=== PATIENT | male | born 1980 | race Caucasian/White ===

== ENCOUNTER 2023-04-17 10:22 | Inpatient (IN) | payer MEDICARE, MEDICAID, SELFPAY ==
[2023-04-17] VITALS (16 sets, daily range): BP systolic 114–131; BP diastolic 75–95; PULSE 74–103; RESP 16–20; TEMP 36.7–37.4; O2SAT 84–97; BMI 31.8
--- NOTE | 2023-04-17 11:30 | CRLHL7_ITS ---
For Patients: As a result of the Century Cures Act, medical imaging exams and procedure reports are released immediately into your electronic medical record. You may view this report before your referring provider. If you have questions, please contact your health care provider. Indication: Cough, fever and hypoxia. Technique: Chest 2 views Comparison: Chest x-ray 09/21/2022 Findings/Impression: Cardiovascular and mediastinum: Heart size and vasculature are normal in caliber and appearance. Mediastinum is within normal limits. Lungs and pleural spaces: No pleural effusion or pneumothorax. Hazy opacities at the lingula and right mid lung consistent with pneumonia. Bones and soft tissues: Straightening of the thoracic spine. Dictated by Baldemar Matos MD @ 04/17/2023 12:53:23 PM (Electronically Signed)
--- NOTE | 2023-04-17 11:51 | ED_ITS ---
HPI - General Adult General Date Seen: 04/17/23 Chief complaint: Cough Stated complaint: fever,shortness of breath,cough Time Seen by Provider: 04/17/23 10:54 History of Present Illness HPI narrative: 42-year-old male with history of Down syndrome, largely dependent on his parents for care and lives with them. He has a history of pneumonia in the past an aspiration pneumonia. Father indicates he has no other history of lung disease, asthma, or COPD. No history of any heart disease, valvular disease, CHF, or coronary disease. He is not diabetic. He does have silly at disease. For a long time he had a very restrictive diet but recently he has discovered that he can eat and enjoys gluten free pizza and chicken nuggets. He has been eating a lot of those so has gained of bunch of weight over the past several months. He has been ill recently. It is a little bit unclear how long he has been sick, concerned father is not exactly clear on the time line. It sounds like patient's mother was sick with a viral illness that lasted a couple of weeks, be ginning in mid March and ending a week or 2 ago. The patient has probably been sick since last week. It sounds like he was out to check folate to eat with his [employer] and had an episode where he was choking or possibly vomiting at [employer] a last week. He has had a couple more episodes including 1 yesterday where he was eating and show then vomited. He has also had a low-grade fever for at least a few days. He has been coughing. He has been a little bit less active than normal. Yesterday evening he was complaining to his parents that his chest or his arm were hurting. It is difficult for them to know exactly what his symptoms are because he can not communicate clearly (because of his Down's and baseline function). He does have sleep apnea. They do have a home pulse oximeter. Last night his oxygen dropped as low as 70% while on room air. He does not have any home oxygen or CPAP. His father is concerned about his low oxygen levels. Today oxygen level is mostly in the 90s with occasional dips to the 80s. Father thinks he has had a low-grade fever. No diarrhea. No swelling in his legs. Now the patient is here in the ER he says he feels ?just fine? and has no complaints. Specifically he does not feel short of breath and does not have chest pain. Says he is not nauseous. He is not having any abdominal pain. Related Data Home Medications Medication Instructions Recorded Confirmed divalproex 500 mg tablet,extended 500 mg PO 3XD 09/21/22 09/21/22 release 24 hr Probiotic 04/17/23 fluvoxamine 100 mg tablet 100 mg PO BID 04/17/23 04/17/23 ibuprofen 04/17/23 quetiapine 50 mg tablet mg PO 04/17/23 vit D3-folic [id number] 04/17/23 Allergies Allergy/AdvReac Type Severity Reaction Status Date / Time No Known Drug Allergies Allergy Verified 09/21/22 13:12 [facility] Medical History (Updated 04/17/23 @ 13:22 by Juan R Calix MD) Cough ?R05.9 - Cough, unspecified (ICD-10) Social History Smoking Status: Never smoker Exam Narrative: Exam Narrative: Constitutional: Appears well-developed. Body habitus consistent with down syndrome. well-nourished. Alert. Answers simple questions and follows simple commands. Difficult to understand some of his speech which is his baseline. Not a reliable historian. Breathing easily. Sats in the low 90s mostly on room air but does have occasional transient desaturations into the high 80s. HENT: Head: Atraumatic. Nose: Nose normal. Mouth/Throat: Wearing a face mask because of COVID precautions. Oral mucosa is clear and moist. no trismus. Pharynx normal. Tonsils symmetric. No tonsillar enlargement, erythema, or exudate. Eyes: Conjunctivae normal. EOM normal. Pupils equal, round, and reactive to light. No scleral icterus. Neck: Normal range of motion. Neck supple. No tracheal deviation present. No JVD Cardiovascular: Normal rate, regular rhythm. No gallop. No friction rub. No murmur heard. Symmetric radial artery pulses Pulmonary/Chest: Effort normal. No stridor. No respiratory distress. No wheezes. Bilateral mid and lower rales. No rhonchi . No tenderness. Abdominal: Soft. Bowel sounds normal. No distension. No mass. No tenderness. No rebound. No guarding. Musculoskeletal: RUE: Normal range of motion. No tenderness. No deformity LUE: Normal range of motion. No tenderness. No deformity RLE: Normal range of motion. Trace ankle edema. No tenderness. No deformity LLE: Normal range of motion. Trace ankle edema. No tenderness. No deformity Lymph: No cervical adenopathy. Neurological: Alert and oriented to person, place and follows commands at baseline. Difficult to assess full mental status because his speech is hard to understand.. Normal strength. CN II-VII intact. No sensory deficit. GCS eye subscore is 4. GCS verbal subscore is 5. GCS motor subscore is 6. Normal coordination Skin: Skin is warm and dry. No rash noted. No pallor. Normal capillary refill. Psychiatric: Normal mood. Normal affect. He is polite and cooperative. Const: Vital Signs, click to edit/add: Vital Signs - 24 hr 04/17/23 10:34 04/17/23 11:52 04/17/23 12:15 Temperature 98.1 F Pulse Rate 90 74 Pulse Rate [Pulse Oximeter] 102 H Respiratory Rate 20 Blood Pressure [Ri ght Upper Arm] 114/75 Pulse Oximetry 93 93 94 Oxygen Delivery Me thod Room Air Oxygen Flow Rate 04/17/23 12:30 04/17/23 13:05 Temperature Pulse Rate 87 Pulse Rate [Pulse Oximeter] Respiratory Rate Blood Pressure [Ri ght Upper Arm] Pulse Oximetry 95 97 Oxygen Delivery Me thod Nasal Cannula Oxygen Flow Rate 2 Course Vital Signs Vital signs: Initial Vital Signs Temperature 98.1 F 04/17/23 10:34 Temperature Source Temporal Artery Scan 04/17/23 10:34 Pulse Rate 102 H 04/17/23 10:34 Respiratory Rate 20 04/17/23 10:34 Blood Pressure 114/75 04/17/23 10:34 Blood Pressure Mean 88 04/17/23 10:34 Pulse Oximetry 93 04/17/23 10:34 Oxygen Delivery Method Room Air 04/17/23 10:34 Vital Signs Temperature 98.1 F 04/17/23 10:34 Pulse Rate 102 H 04/17/23 10:34 Respiratory Rate 20 04/17/23 10:34 Blood Pressure 114/75 04/17/23 10:34 Pulse Oximetry 93 04/17/23 10:34 Oxygen Delivery Method Room Air 04/17/23 10:34 Temperature 98.1 F 04/17/23 10:34 Pulse Rate 87 04/17/23 12:30 Respiratory Rate 20 04/17/23 10:34 Blood Pressure 114/75 04/17/23 10:34 Pulse Oximetry 97 04/17/23 13:05 Oxygen Delivery Method Nasal Cannula 04/17/23 13:05 Oxygen Flow Rate 2 04/17/23 13:05 Medical Decision Making MDM Narrative Medical decision making narrative: 42-year-old male with a history of down syndrome and history of previous hospitalizations for aspiration pneumonia brought to the ER today by his father with concern for illness for the past few days, some cough, low-grade fevers, and hypoxia overnight. When the patient presented he ER he was not having any respiratory distress but was intermittently hypoxic, typically when he would get a bit drowsy. He was tachycardic at triage but that improved with IV fluids and blood pressure is otherwise been stable. At this point he is not showing signs of respiratory fatigue that is going to reach indicate the necessity of BiPAP or endotracheal intubation. He has does not have any evidence for septic shock. With his cough consider possible viral syndrome. He is negative for coronavirus. Negative for influenza and RSV. Chest x-ray does show right lower lobe and left lingular infiltrates which could be pneumonia. With history of aspiration or possible community-acquired pneumonia we will initiate antibiotic therapy. He was tachycardic and had a low-grade fever but does not have leukocytosis. Does not meet criteria for SIRS or sepsis. However blood cultures were obtained prior to initiation of antibiotics. Broader differential for hypoxia is considered. EKG shows no ischemia. Troponin is negative. BNP is normal. Chest x-ray does not show pulmonary edema. He does not have any recent unilateral swelling, immobilization, or travel to suggest DVT or risk for PE. With obvious pneumonia noted on his chest x-ray, I think is exceedingly low probability for PE he so will hold off on D- dimer testing or CT PA. He did become hypoxic satting down the low 80s on room air when he took a nap here in the ER. Oxygen sats have improved with 2 L nasal cannula supplementation. He will require hospitalization for oxygen supplementation while we treat his pneumonia with antibiotics. He has accepted into the hospital by the hospitalist, Dr. Rivera. Discussed plan of care with the patient's father. He is in agreement. He confirms that Samuel would be full code and full intubation, desiring all supportive measures, if his condition were to deteriorate. Lab Data Labs: Lab Results 04/17/23 04/17/23 Range/Units 11:44 Unknown WBC 9.53 (4.50-11.00) K/uL RBC 3.73 L (4.30-5.90) m/uL Hgb 12.7 L (13.5-17.5) gm/dL Hct 38.9 (37.0-53.0) % MCV 104 H (80-100) fL MCH 34 (26-34) pg MCHC 33 (32-36) gm/dL RDW Coeff of [place] 15.0 (11.5-15.5) % Plt Count 227 (140-440) K/uL Neut % (Auto) 75.3 H (42.0-72.0) % Lymph % (Auto) 17.5 L (20-44) % [place] % (Auto) 6.1 (0.0-11.0) % Eos % (Auto) 0.4 (0.0-7.0) % Baso % (Auto) 0.4 (0.0-3.0) % Neut # (Auto) 7.20 H (1.7-7.0) K/uL Lymph # (Auto) 1.70 (0.90-2.90) K/uL [place] # (Auto) 0.60 (0.00-0.90) K/UL Eos # (Auto) 0.04 (0.00-0.50) K/uL Baso # (Auto) 0.04 (0.00-0.30) K/uL Abs Immat Gran (auto) 0.03 (0.00-0.30) K/uL Imm/Tot Granulo (auto) 0.3 % Sodium 138 (135-149) mmol/L Potassium 3.9 (3.6-5.1) mmol/L Chloride 107 (96-114) mmol/L Carbon Dioxide 23 (20-32) mmol/L Anion Gap 8 (7-15) mEq/L BUN 14 (5-24) mg/dL Creatinine 0.6 (0.5-1.5) mg/dL Estimated GFR 123 ml/min Glucose 89 (60-115) mg/dL Lactate 0.5 (0.5-1.9) mmol/L Calcium 8.4 (8.4-10.6) mg/dL Troponin I < 0.01 L (0.01-0.04) ng/mL NT-Pro-B Natriuret Pep 82 pg/mL SARS-CoV-2 (PCR) Negative SARS-CoV-2 (Negative) Influenza Type A (PCR) Negative PCR FLU A (Negative) Influenza Type B (PCR) Negative PCR FLU B (Negative) RSV (PCR) Negative PCR RSV (Negative) Imaging Data Chest x-ray: Attestation: I have reviewed the pertinent imaging results. Radiologist's impression: Findings/Impression: Cardiovascular and mediastinum: Heart size and vasculature are normal in caliber and appearance. Mediastinum is within normal limits. Lungs and pleural spaces: No pleural effusion or pneumothorax. Hazy opacities at the lingula and right mid lung consistent with pneumonia. ECG Data Attestation: I personally reviewed and interpreted this ECG as follows: Interpretation: Normal sinus rhythm rate 94 MO 138 QRS axis low-voltage QRS. Normal axis. No pathologic Q-waves. ST segment/T wave: Nonspecific flattening in V1 and V2. No ST segment elevation depression. QTc: 440 Discharge Plan Discharge Clinical Impression: Hypoxia, Pneumonia Prescriptions: No Action divalproex 500 mg tablet extended release 24 hr 500 mg PO 3XD fluvoxamine 100 mg tablet 100 mg PO BID Probiotic ibuprofen vit D3-folic [id number] quetiapine 50 mg tablet PO Follow Up/Referrals: Carrie Pena MD [Primary Care Provider] -
[2023-04-17 11:53] LABS: PCR FLU A Negative PCR FLU A (Negative); PCR FLU B Negative PCR FLU B (Negative); PCR RSV Negative PCR RSV (Negative)
[2023-04-17 11:55] LABS: Lactate* 0.5 mmol/L (0.5-1.9)
[2023-04-17 11:56] LABS: Basophils Absolute Auto 0.04 K/uL (0.00-0.30); Basophils Percent Auto 0.4 % (0.0-3.0); Eosinophils Absolute Auto 0.04 K/uL (0.00-0.50); Eosinophils Percent Auto 0.4 % (0.0-7.0); Hematocrit 38.9 % (37.0-53.0); Hemoglobin* 12.7 gm/dL (13.5-17.5); Immature Granulocytes Abs Auto 0.03 K/uL (0.00-0.30); Immature Granulocytes Pct Auto 0.3 %; Lymphocytes Percent Auto 17.5 % (20-44); Mean Corpuscular HGB Conc 33 gm/dL (32-36); Mean Corpuscular Hemoglobin 34 pg (26-34); Mean Corpuscular Volume 104 fL (80-100); Monocytes Percent Auto 6.1 % (0.0-11.0); Neutrophils Percent Auto 75.3 % (42.0-72.0); Platelet Count* 227 K/uL (140-440); Red Blood Count 3.73 m/uL (4.30-5.90); White Blood Count* 9.53 K/uL (4.50-11.00)
[2023-04-17 11:59] LABS: SARS PCR* Negative SARS-CoV-2 (Negative)
[2023-04-17 12:00] LABS: Slide Review Reflex No
[2023-04-17 12:17] LABS: Chloride* 107 mmol/L (96-114); Potassium* 3.9 mmol/L (3.6-5.1); Sodium* 138 mmol/L (135-149)
[2023-04-17 12:20] LABS: Anion Gap 8 mEq/L (7-15); Blood Urea Nitrogen* 14 mg/dL (5-24); Carbon Dioxide* 23 mmol/L (20-32); Creatinine* 0.6 mg/dL (0.5-1.5); Estimated Glomerular Filt Rate 123 ml/min; Glucose* 89 mg/dL (60-115)
[2023-04-17 12:21] LABS: Calcium* 8.4 mg/dL (8.4-10.6)
[2023-04-17 12:34] LABS: NT Pro B Type NatriureticPept* 82 pg/mL; Troponin I* < 0.01 ng/mL (0.01-0.04)
--- NOTE | 2023-04-17 13:04 | ED.NURSE ---
Pt sleeping in room. O2 satting ~82% on RA while sleeping. 2L O2 NC applied. notified.
[2023-04-17] MEDS: AZITHROMYCIN 250 MG TABLET 500 MG PO (13:59)
[2023-04-17] MEDS: cefTRIAXone 1 GM in 0.9 % SODIUM CHLORIDE Mini-bag 100 ML IVPB (13:59)
[2023-04-17] MEDS: ACETAMINOPHEN 325 MG TABLET 650 MG PO (15:59)
[2023-04-17] MEDS: LACTOBACILLUS ACIDOPHILUS 1 TABLET 2 TAB PO (17:34)
--- NOTE | 2023-04-17 17:45 | PM.IMHP1 ---
Hospitalist- H&P: HPI History of Present Illness Date Seen: 04/17/23 Chief complaint: fever,shortness of breath,cough Narrative: Dwight Hatch is a 42 year old man who lives with and is cared for by his parents due to underlying Down syndrome. Patient's mother has been ill for about 2 weeks. Patient has been ill for about a week. Little less than a week ago patient had a choking episode and possible nausea and vomiting when eating at fast food restaurant. Had a similar episode yesterday. Patient is been more lethargic recently. Father checked the patient's oxygen saturation last night and it was in the mid 70s. Patient does not have oxygen supplementation or CPAP. This morning they recheck today it was in the mid 80s. Father thinks he may have had the low-grade fever but they did not check his temperature. Patient is delightful. States he feels well. Even so he is saturating in the mid to upper 80s on room air. Intermittent dry hacking cough. No edema. Chest x-ray suggests possible aspiration in both lung ramirez. Patient admitted for oxygen supplementation and initiation of antibiotics. Review of Systems Status of ROS: Reports: 10 or more systems reviewed and unremarkable except as noted in History and below Narrative: Historically patient was on a restrictive diet. Patient discover that he enjoys gluten free pizza and chicken nuggets and has taken to eating this a great deal over the last several months and has started to gain weight. Patient otherwise doing well. Full resuscitation in event of cardiopulmonary demise. Parents some help make his healthcare decisions on his behalf. Follows with his psychiatrist regularly. Last telemedicine visit with psychiatrist was on 03/20/2023. [facility] Medical History (Updated 04/17/23 @ 17:57 by Casey Maria MD) History of aspiration pneumonia ?Z87.01 - Personal history of pneumonia (recurrent) (ICD-10) Major depressive disorder ?F32.9 - Major depressive disorder, single episode, unspecified (ICD-10) Obsessive compulsive disorder ?F42.9 - Obsessive-compulsive disorder, unspecified (ICD-10) Celiac disease ?K90.0 - Celiac disease (ICD-10) Down syndrome ?Q90.9 - Down syndrome, unspecified (ICD-10) Cough ?R05.9 - Cough, unspecified (ICD-10) Surgical History H/O umbilical hernia repair ?Z98.890 - Other specified postprocedural states (ICD-10) ?Z87.19 - Personal history of other diseases of the digestive system (ICD-10) History of tympanoplasty ?Z98.890 - Other specified postprocedural states (ICD-10) Family History Maternal Grandfather Leukemia Maternal Grandmother Colon cancer Social History What is your current living situation?: I presently have a place to live Problems where you live: no known problems Problems where you live details: none In the past 12 months, utilities in danger of being shut off: no In past 12 months, lack of transportation kept you from medical appts, meetings, work, or getting things needed for daily living: no In the past 12 mos, have been you worried that your food would run out before you had money to buy more?: never true In the past 12 mos, the food you bought just didn't last and you didn't have money to buy more?: never true Highest level of school completed/degree received: some college, no degree Smoking Status: Never smoker How often do you have a drink containing alcohol: never AUDIT-C Alcohol total score: 0 Non-prescribed substance use: denies use Caffeine: No How often does anyone, including family, friends and others, physically hurt you: never How often does anyone, including family, friends and others, insult or talk down to you: never How often does anyone, including family, friends and others, threaten you with harm: never How often does anyone, including family, friends and others, scream or curse at you: never service: No Meds Home Medications and Allergies Home Medications Medication Instructions Recorded Confirmed Type Probiotic 04/17/23 History fluvoxamine 100 mg tablet 100 mg PO BID 04/17/23 04/17/23 History ibuprofen 04/17/23 History lorazepam 1 mg tablet 1 mg PO 3XD PRN anxiety 04/17/23 04/17/23 History multivit,calcium,min-folic acid 1 tab PO DAILY 04/17/23 04/17/23 History 240 mcg-D3 25 mcg-lycop 300 mcg tablet (One A Day Men Complete) quetiapine 50 mg tablet 150 mg PO HS 04/17/23 04/17/23 History Allergies Allergy/AdvReac Type Severity Reaction Status Date / Time No Known Drug Allergies Allergy Verified 09/21/22 13:12 Exam Narrative: Exam Narrative: Patient appears comfortable in no acute distress when I see him. Friendly, articulate, cooperative. Alert and oriented to self, not so much to time, place, situation, which is not new. Obviously inherently trusts his father who accompanies him when I examine him. Tympanic membranes are normal. Midline nasal septum. Dentition in fair repair. Oropharynx benign. Neck is supple. Midline trachea. No head neck lymphadenopathy. No JVD hepatojugular reflux. No carotid bruits. Lungs with scattered rhonchi and few rales bibasilarly but no wheezing. Chest wall excursions are full. Heart tones with regular rhythm, normal S1-S2, without murmur, gallop, rub. Abdomen is obese with active bowel sounds, soft, nontender. Extremities without edema. Palpable pulses upper and lower extremities. Skin is warm, dry, intact. Const: Vital Signs, click to edit/add: Vital Signs - 24 hr 04/17/23 10:34 04/17/23 11:52 04/17/23 12:15 Temperature 98.1 F Pulse Rate 90 74 Pulse Rate [Pulse Oximeter] 102 H Respiratory Rate 20 Blood Pressure Blood Pressure [Le ft Arm] Blood Pressure [Ri ght Upper Arm] 114/75 Pulse Oximetry 93 93 94 Oxygen Delivery Me thod Room Air Oxygen Flow Rate 04/17/23 12:30 04/17/23 13:02 04/17/23 13:05 Temperature Pulse Rate 87 85 Pulse Rate [Pulse Oximeter] Respiratory Rate Blood Pressure Blood Pressure [Le ft Arm] Blood Pressure [Ri ght Upper Arm] Pulse Oximetry 95 84 L 97 Oxygen Delivery Me thod Nasal Cannula Oxygen Flow Rate 2 04/17/23 13:05 04/17/23 13:15 04/17/23 13:30 Temperature Pulse Rate 76 96 84 Pulse Rate [Pulse Oximeter] Respiratory Rate Blood Pressure 130/95 H Blood Pressure [Le ft Arm] Blood Pressure [Ri ght Upper Arm] Pulse Oximetry 94 97 96 Oxygen Delivery Me thod Nasal Cannula Nasal Cannula Nasal Cannula Oxygen Flow Rate 2 2 2 04/17/23 13:45 04/17/23 14:25 04/17/23 14:39 Temperature 99.3 F Pulse Rate 91 Pulse Rate [Pulse Oximeter] 84 Respiratory Rate 16 16 Blood Pressure Blood Pressure [Le ft Arm] 120/89 Blood Pressure [Ri ght Upper Arm] Pulse Oximetry 94 93 93 Oxygen Delivery Me thod Nasal Cannula Room Air Room Air Oxygen Flow Rate 2 04/17/23 15:52 04/17/23 15:52 04/17/23 15:59 Temperature 99.3 F 99.3 F Pulse Rate Pulse Rate [Pulse Oximeter] 103 H 103 H Respiratory Rate 20 20 Blood Pressure Blood Pressure [Le ft Arm] 131/82 Blood Pressure [Ri ght Upper Arm] Pulse Oximetry 92 Oxygen Delivery Me thod Room Air Oxygen Flow Rate 04/17/23 17:28 Temperature 99.2 F Pulse Rate Pulse Rate [Pulse Oximeter] Respiratory Rate Blood Pressure Blood Pressure [Le ft Arm] Blood Pressure [Ri ght Upper Arm] Pulse Oximetry Oxygen Delivery Me thod Oxygen Flow Rate Hospitalist - H&P: Result Labs Labs: Short CBC 04/17/23 Range/Units 11:44 WBC 9.53 (4.50-11.00) K/uL Hgb 12.7 L (13.5-17.5) gm/dL Hct 38.9 (37.0-53.0) % Plt Count 227 (140-440) K/uL BMP 04/17/23 11:44 Sodium 138 Potassium 3.9 Chloride 107 Carbon Dioxide 23 BUN 14 Creatinine 0.6 Glucose 89 Calcium 8.4 Cardiac Enzymes 04/17/23 Range/Units 11:44 Troponin I < 0.01 L (0.01-0.04) ng/mL Imaging Chest x-ray: Attestation: I have reviewed the pertinent imaging results. Radiologist's impression: Radiologist suggests patient has infiltrate in the right lingula. By my view he has patchy infiltrates bibasilarly. Assessment and Plan Assessment and plan (1) Aspiration pneumonia: Status: Acute (2) Aspiration pneumonitis: Problem comment: - receive single dose of ceftriaxone IV and azithromycin 500 mg orally. - patient removed his IV. Will keep it out. Will initiate Augmentin 875/1251 tab p.o. b.i.d. starting morning of 04/18/2023. - recheck chest x-ray in the morning if condition not improving. - with speech pathology to do bedside swallowing assessment in the morning. Status: Acute (3) Acute hypoxic respiratory failure: Problem comment: - oxygen supplementation Status: Acute (4) History of aspiration pneumonia: Problem comment: February 2015 Status: Acute (5) Down syndrome: Problem comment: - dependent on his parents for care in lives with them. - family will be with patient while he is here in the hospital. Status: Acute Plan 1. Reviewed impression with patient and his father. 2. Answered their questions. 3. Continue with other supportive efforts. 4. They are agreeable with above stated plans and recommendations.
--- NOTE | 2023-04-17 18:23 | PC.NURSE ---
End of Shift: Patient pleasant and cooperative, alert and oriented, but difficulty verbalizing words when asked questions. Patient has pressured communication and stutters words. Patient vitally stable, lungs course/rhonchi, BS WNL, NO IV. Patient currently on 0.5 L of oxygen as he dozes on and off, with sats in the low 90s. Patient SBA. Patient denies pain and tolerating regular diet. Patient using toilet to urinate.
[2023-04-17] MEDS: IBUPROFEN 400 MG TABLET PO (21:24)
[2023-04-17] MEDS: QUETIAPINE 100 MG TABLET 150 MG PO (21:24)
[2023-04-17] MEDS: ENOXAPARIN 40 MG/0.4 ML INJ SUBCUT (21:25)
[2023-04-18] VITALS (9 sets, daily range): BP systolic 109–138; BP diastolic 77–102; PULSE 73–96; RESP 14–20; TEMP 36.5–37.2; O2SAT 90–99
[2023-04-18 07:23] LABS: HCO3 VBG 29 mmol/L (21-28); Lactate* 0.6 mmol/L (0.5-1.9); PCO2 VBG 58 mmHG (40-50); PO2 VBG 68.7 mmHG (25-47); pH VBG 7.303 (7.32-7.43)
[2023-04-18 07:32] LABS: Hematocrit 38.7 % (37.0-53.0); Hemoglobin* 12.5 gm/dL (13.5-17.5); Mean Corpuscular HGB Conc 32 gm/dL (32-36); Mean Corpuscular Hemoglobin 34 pg (26-34); Mean Corpuscular Volume 107 fL (80-100); Platelet Count* 213 K/uL (140-440); Red Blood Count 3.63 m/uL (4.30-5.90); White Blood Count* 5.87 K/uL (4.50-11.00)
[2023-04-18 07:34] LABS: Slide Review Reflex No
[2023-04-18 07:55] LABS: Chloride* 109 mmol/L (96-114); Potassium* 4.3 mmol/L (3.6-5.1); Sodium* 142 mmol/L (135-149)
[2023-04-18 07:58] LABS: Creatinine* 0.5 mg/dL (0.5-1.5); Est. Creatinine Clearance* 165.71; Estimated Glomerular Filt Rate 130 ml/min
[2023-04-18 07:59] LABS: Anion Gap 5 mEq/L (7-15); Blood Urea Nitrogen* 13 mg/dL (5-24); Carbon Dioxide* 28 mmol/L (20-32); Glucose* 102 mg/dL (60-115); Magnesium* 2.1 mg/dL (1.5-2.6); Phosphorus* 4.7 mg/dL (2.5-4.5)
--- NOTE | 2023-04-18 08:03 | PC.NURSE ---
Pt alert and oriented x3. Pt denies pain, SOB, chest pain and N/V. Pt had elevate temp 99.1, managed with PRN medications. Pt on 2L of O2 to maintain 88% O2 and above. Pt is up SBA to in room. Pt slept throughout most of night. Family at bed side.
[2023-04-18 08:12] LABS: Procalcitonin* 0.12 ng/mL (<0.50)
[2023-04-18 08:37] LABS: Troponin I* < 0.01 ng/mL (0.01-0.04)
[2023-04-18 08:53] LABS: C Reactive Protein* 19.6 mg/dL (0.5-1.0)
--- NOTE | 2023-04-18 09:55 | NUTR.NU ---
RDN with MD consult for gluten-free diet. Patient admitted for aspiration pneumonia, has a history of celiac disease and down syndrome. Per MD report, patient lives with parents whom are his caregivers. Height 5ft 5in; weight 186lb; BMI is obese at 31.0 kg/m2. RDN visited with patient and father (Larry) whom reports following a gluten-free diet at home. Larry reports culinary services staff have been very helpful when ordering meals for patient. RDN offered diet education materials on gluten-free diet, however Larry declined at this time. They had no questions or concerns at this time. RDN will continue to monitor and follow-up prn.
[2023-04-18] MEDS: AMOXICILLIN/CLAVULANATE 875 mg/125 mg TABLET PO ×2 (10:45→17:44)
[2023-04-18] MEDS: LACTOBACILLUS ACIDOPHILUS 1 TABLET 2 TAB PO ×2 (10:45→17:44)
[2023-04-18] MEDS: guaiFENesin 600 MG TAB.ER.12H PO ×2 (10:51→20:47)
--- NOTE | 2023-04-18 13:21 | RESP.RT ---
Pt assessed this AM. He was sleeping soundly. Removed low flow oxygen as his SPO2 was 97%. Spoke with Father who is aware he has probable ELY, no testing or CPAP done. Trying not to over oxygenate pt. Tolerate SPO2 greater than 85%. VBG noted this AM with provider. BBS with Coarse scattered Rhonchi. Suggest a swallow study for pt.
--- NOTE | 2023-04-18 13:28 | PM.IMPN1 ---
Progress Note: A&P Assessment and plan (1) Aspiration pneumonitis: Problem details: - history of aspiration pneumonia. BC x 2 NGTD. No leukocytosis. Temp has remained <100. - received single dose of ceftriaxone IV and azithromycin 500 mg orally. - patient removed his IV. Will keep it out. - continue Augmentin 875/1251 tab p.o. b.i.d. starting morning of 04/18/2023 - Mucinex b.i.d. - consider repeat chest x-ray if new or worsening symptoms - speech pathology to do bedside swallowing assessment. Recommending outpatient modified barium study with PCP following discharge - father informed. Status: Acute (2) Acute hypoxic respiratory failure: Problem details: - VBG pH 7.303, pCO2 58, PO2 60, HC03 29 - oxygen supplementation to maintain saturations > 85% as discussed with respiratory therapy, weaning as able Status: Acute (3) Down syndrome: Problem details: - dependent on his parents for care in lives with them. - family will be with patient while he is here in the hospital. Status: Acute Time Spent With Patient Total time spent: Total time spent caring for the patient today was 45 minutes. This includes time spent for the visit reviewing the chart, time spent during the visit, time spent after the visit and documentation and planning in coordination of care. Subjective Date Seen: 04/18/23 Interval history: Patient is seen with father at bedside. Tells me he is feeling good. No events reported overnight. Temperatures overnight low to mid 99. Continues on 2 L O2 which respiratory therapy will turn down given likely history of undiagnosed sleep apnea in setting of Down syndrome. Father states he would not tolerate a formal sleep study but has witnessed apneic like episodes. Not otherwise dependent on O2. Tolerating orals. No nausea vomiting. Exam Narrative: Exam Narrative: PHYSICAL EXAM General: Sitting up in bed, pleasant, smiling, NAD Cardiovascular: RRR, S1S2. Pulmonary: Mildly coarse. No dyspnea on 2 L Abdominal: Soft, nondistended, NTTP Neurological: Alert, cranial nerves intact, no focal findings Extremities: No gross joint deformity or swelling. AROMI. Neurovascularly intact Skin: Warm, dry. Const: Vital Signs, click to edit/add: Vital Signs - 24 hr 04/17/23 13:30 04/17/23 13:45 04/17/23 14:25 Temperature 99.3 F Pulse Rate 84 91 Pulse Rate [Left A pical] Pulse Rate [Pulse Oximeter] 84 Respiratory Rate 16 Blood Pressure [Le ft Arm] 120/89 Pulse Oximetry 96 94 93 Oxygen Delivery Me thod Nasal Cannula Nasal Cannula Room Air Oxygen Flow Rate 2 2 04/17/23 14:39 04/17/23 15:52 04/17/23 15:52 Temperature 99.3 F Pulse Rate Pulse Rate [Left A pical] Pulse Rate [Pulse Oximeter] 103 H 103 H Respiratory Rate 16 20 20 Blood Pressure [Le ft Arm] 131/82 Pulse Oximetry 93 92 Oxygen Delivery Me thod Room Air Room Air Oxygen Flow Rate 04/17/23 15:59 04/17/23 17:28 04/17/23 21:05 Temperature 99.3 F 99.2 F 99.1 F Pulse Rate Pulse Rate [Left A pical] Pulse Rate [Pulse Oximeter] 89 Respiratory Rate 20 Blood Pressure [Le ft Arm] 121/86 Pulse Oximetry 97 Oxygen Delivery Me thod Nasal Cannula Oxygen Flow Rate 2 04/17/23 21:05 04/17/23 21:24 04/18/23 00:05 Temperature 99.1 F 99.1 F Pulse Rate Pulse Rate [Left A pical] Pulse Rate [Pulse Oximeter] 89 Respiratory Rate 20 20 Blood Pressure [Le ft Arm] 121/86 Pulse Oximetry 97 Oxygen Delivery Me thod Nasal Cannula Oxygen Flow Rate 2 04/18/23 00:05 04/18/23 00:05 04/18/23 00:05 Temperature 97.9 F 98.5 F Pulse Rate Pulse Rate [Left A pical] Pulse Rate [Pulse Oximeter] 84 Respiratory Rate 20 20 Blood Pressure [Le ft Arm] 109/79 Pulse Oximetry 95 95 Oxygen Delivery Me thod Nasal Cannula Nasal Cannula Oxygen Flow Rate 1.5 1.5 04/18/23 03:15 04/18/23 07:00 04/18/23 07:00 Temperature 97.7 F 98 F Pulse Rate Pulse Rate [Left A pical] 73 Pulse Rate [Pulse Oximeter] 77 73 Respiratory Rate 14 20 20 Blood Pressure [Le ft Arm] 127/92 H 138/82 Pulse Oximetry 95 97 97 Oxygen Delivery Me thod Nasal Cannula Nasal Cannula Nasal Cannula Oxygen Flow Rate 2 2 2 Labs Labs: Laboratory Results - last 24 hr 04/18/23 06:15 WBC 5.87 RBC 3.63 L Hgb 12.5 L Hct 38.7 MCV 107 H MCH 34 MCHC 32 Plt Count 213 VBG pH 7.303 L VBG pCO2 58 H VBG pO2 68.7 H VBG HCO3 29 H Sodium 142 Potassium 4.3 Chloride 109 Carbon Dioxide 28 Anion Gap 5 L BUN 13 Creatinine 0.5 Estimated Creat Clear 165.71 Estimated GFR 130 Glucose 102 Lactate 0.6 Calcium 8.0 L Phosphorus 4.7 H Magnesium 2.1 Troponin I < 0.01 L C-Reactive Protein 19.6 H Procalcitonin 0.12
--- NOTE | 2023-04-18 15:54 | PC.NURSE ---
Pt eval by Amairani Rg. No dysphagia with meds. Adequate I & 0. Pt has sleep apnea and breathes through his mouth. RT consult with Emily Davis RT who removed his oxygen. This is his baseline per father Larry at bedside. New order for Mucinex initiated. Continue plan of care. Goal is to keep oxygen sats 85-88% on room air. Report to Van[facility] for evening shift.
[2023-04-18] MEDS: QUETIAPINE 100 MG TABLET 150 MG PO (20:47)
[2023-04-18] MEDS: ENOXAPARIN 40 MG/0.4 ML INJ SUBCUT (20:48)
--- NOTE | 2023-04-18 22:33 | PC.NURSE ---
End of Shift: Patient pleasant and cooperative. Patient vitally stable, lungs diminished, BS WNL, NO IV. Patient SBA, there seems to always be a family member or HOG SLAUGHTERER in room with patient. Patient denies pain. Patient tolerating regular diet. Patient urinating, No BM this shift. Patient alert and oriented, only delayed with communication.
[2023-04-19] VITALS (8 sets, daily range): BP systolic 104–114; BP diastolic 70–73; PULSE 81–90; RESP 16–20; TEMP 36.3–36.4; O2SAT 75–94
--- NOTE | 2023-04-19 05:40 | PC.NURSE ---
End of Shift: Patient pleasant and cooperative. Afebrile. Denies pain. Up with SBA. Father at bedside throughout shift. O2 sats low 90s on room air while awake. Sats decrease while sleeping briefly in to the 50s-80s. 2L oxymask to keep sats 85%.
[2023-04-19 07:40] LABS: Basophils Absolute Auto 0.04 K/uL (0.00-0.30); Basophils Percent Auto 0.7 % (0.0-3.0); Eosinophils Absolute Auto 0.14 K/uL (0.00-0.50); Eosinophils Percent Auto 2.6 % (0.0-7.0); Hematocrit 38.9 % (37.0-53.0); Hemoglobin* 12.6 gm/dL (13.5-17.5); Lymphocytes Absolute Auto 1.48 K/uL (0.90-2.90); Lymphocytes Percent Auto 27.3 % (20-44); Mean Corpuscular HGB Conc 32 gm/dL (32-36); Mean Corpuscular Hemoglobin 34 pg (26-34); Mean Corpuscular Volume 105 fL (80-100); Monocytes Percent Auto 6.6 % (0.0-11.0); Neutrophils Percent Auto 62.8 % (42.0-72.0); Platelet Count* 231 K/uL (140-440); RDW Coefficient of Variation % 14.6 % (11.5-15.5); White Blood Count* 5.42 K/uL (4.50-11.00)
[2023-04-19 07:43] LABS: Slide Review Reflex No
[2023-04-19 07:56] LABS: Chloride* 105 mmol/L (96-114); Sodium* 140 mmol/L (135-149)
[2023-04-19 07:59] LABS: Anion Gap 5 mEq/L (7-15); Carbon Dioxide* 30 mmol/L (20-32); Creatinine* 0.5 mg/dL (0.5-1.5); Est. Creatinine Clearance* 165.71; Estimated Glomerular Filt Rate 130 ml/min
[2023-04-19 08:00] LABS: Blood Urea Nitrogen* 11 mg/dL (5-24); Calcium* 8.3 mg/dL (8.4-10.6); Glucose* 104 mg/dL (60-115)
[2023-04-19] MEDS: LACTOBACILLUS ACIDOPHILUS 1 TABLET 2 TAB PO (08:43)
[2023-04-19] MEDS: AMOXICILLIN/CLAVULANATE 875 mg/125 mg TABLET PO (08:43)
[2023-04-19] MEDS: guaiFENesin 600 MG TAB.ER.12H PO (08:43)
--- NOTE | 2023-04-19 12:16 | PC.NURSE ---
discharge. pt has been pleasant., he is alert to self. Pt pleasant and cooperative. Afebrile. Denies pain. Up with SBA. his Father at bedside throughout shift. O2 sats low 90s on room air while awake. Sats decrease while sleeping briefly in to the 50s-80s. 2L oxymask to keep sats 85%. with sleep. went over discharge with pt and dad.
--- NOTE | 2023-04-19 16:26 | PM.DS1 ---
DS: Providers Provider Date Seen: 04/19/23 Date of admission: 04/18/23 10:47 Primary care physician: Carrie Pena MD Admitting Clinician: Brooklyn Roberto MD Consults: 04/17/23 15:16 Consult to Nutrition [CONS] Routine Comment: Reason for consult:: Miscellaneous Comment: gluten free diet Consult to Speech Therapy [CONS] Routine Comment: Reason(s) for Speech Consult:: Swallowing Difficulty Comment: aspiration event 04/18/23 09:51 Consult to Respiratory Therapy [CONS] Routine Comment: Reason(s) for RT Consult:: Consult Comment: aspiration pnx, acidosis, acute hypoxic resp failure with hypercapnia Attending Physician on discharge: Amairani Rg PA-C Date of Discharge: 04/19/23 DS: Diagnosis Discharge Diagnosis (1) Aspiration pneumonitis: Status: Acute Problem details: - history of aspiration pneumonia. BC x 2 NGTD. No leukocytosis. Temp has remained <100. Patient is discharged on oral Augmentin to complete a 10 day course. Speech therapy Recommending outpatient modified barium study with PCP following discharge - father informed. (2) Acute hypoxic respiratory failure: Status: Acute Problem details: - VBG pH 7.303, pCO2 58, PO2 60, HC03 29 Assessed by respiratory therapy, recommending outpatient sleep study to be scheduled by PCP the father in agreement (3) Down syndrome: Status: Acute Problem details: - dependent on his parents for care in lives with them. DS: Summary Hospital Course Hospital Course: [age] year old male past medical history significant for Down syndrome, history of aspiration pneumonia was admitted to the medical floor for hypoxia in setting of aspiration pneumonia. Course of care and details as noted above. Patient is discharged with 10 day course of oral Augmentin. Respiratory therapy recommends follow-up with PCP for formal sleep study. Speech therapy recommending outpatient barium study S discussed with patient's father. Status at Discharge Overall status at discharge: patient is back to baseline Time Spent with Patient Time attestation: Total time spent providing and/or coordinating discharge services: Time spent: Greater than 30 minutes Exam Narrative: Exam Narrative: PHYSICAL EXAM General: Pleasant, conversant, NAD Cardiovascular: RRR Pulmonary: No dyspnea Neurological: Alert, answering questions appropriately Skin: Warm, dry. Const: Vital Signs, click to edit/add: Vital Signs - 24 hr 04/18/23 19:27 04/18/23 22:32 04/18/23 23:00 Temperature 98.9 F Pulse Rate [Left A pical] Pulse Rate [Pulse Oximeter] 91 Respiratory Rate 14 Blood Pressure [Le ft Arm] 120/88 Pulse Oximetry 90 93 92 Oxygen Delivery Me thod Room Air Room Air Room Air Oxygen Flow Rate 04/18/23 23:00 04/18/23 23:00 04/19/23 00:56 Temperature 98.4 F Pulse Rate [Left A pical] Pulse Rate [Pulse Oximeter] 96 96 Respiratory Rate 20 20 Blood Pressure [Le ft Arm] 121/77 Pulse Oximetry 92 94 Oxygen Delivery Me thod Room Air Room Air Oxygen Flow Rate 04/19/23 02:06 04/19/23 02:06 04/19/23 03:00 Temperature 97.3 F L Pulse Rate [Left A pical] Pulse Rate [Pulse Oximeter] 90 Respiratory Rate 20 Blood Pressure [Le ft Arm] 114/70 Pulse Oximetry 75 L 91 92 Oxygen Delivery Me od Room Air Room Air Room Air Oxygen Flow Rate 04/19/23 04:11 04/19/23 04:31 04/19/23 05:39 Temperature Pulse Rate [Left A pical] Pulse Rate [Pulse Oximeter] Respiratory Rate Blood Pressure [Le ft Arm] Pulse Oximetry 88 80 L 91 Oxygen Delivery Me od Room Air Room Air OxyMask Oxygen Flow Rate 2 04/19/23 08:30 04/19/23 08:30 04/19/23 08:30 Temperature 97.6 F Pulse Rate [Left A pical] 81 81 Pulse Rate [Pulse Oximeter] 81 81 Respiratory Rate 20 16 16 Blood Pressure [Le ft Arm] 104/73 Pulse Oximetry 91 90 Oxygen Delivery Me thod Nasal Cannula OxyM ask Nasal Cannula OxyM ask Oxygen Flow Rate 1 2 04/19/23 11:45 Temperature 97.6 F Pulse Rate [Left A pical] 81 Pulse Rate [Pulse Oximeter] 81 Respiratory Rate 16 Blood Pressure [Le ft Arm] 104/73 Pulse Oximetry 90 Oxygen Delivery Me thod Nasal Cannula OxyM ask Oxygen Flow Rate 2 DS: Data Data Completed and Pending Labs on day of discharge: Labs from last 24 hours 04/19/23 07:33 WBC 5.42 RBC 3.70 L Hgb 12.6 L Hct 38.9 MCV 105 H MCH 34 MCHC 32 RDW Coeff of [place] 14.6 Plt Count 231 Neut % (Auto) 62.8 Lymph % (Auto) 27.3 [place] % (Auto) 6.6 Eos % (Auto) 2.6 Baso % (Auto) 0.7 Neut # (Auto) 3.40 Lymph # (Auto) 1.48 [place] # (Auto) 0.40 Eos # (Auto) 0.14 Baso # (Auto) 0.04 Abs Immat Gran (auto) 0.00 Imm/Tot Granulo (auto) 0.0 Sodium 140 Potassium 4.0 Chloride 105 Carbon Dioxide 30 Anion Gap 5 L BUN 11 Creatinine 0.5 Estimated Creat Clear 165.71 Estimated GFR 130 Glucose 104 Calcium 8.3 L Preliminary micro results at discharge 04/17/23 12:02 Blood Culture - Preliminary Blood NO GROWTH AFTER 48 HOURS 04/17/23 11:44 Blood Culture - Preliminary Blood NO GROWTH AFTER 48 HOURS Discharge Plan Discharge Disposition: Home, Self-Care Date of Admission: 04/18/23 10:47 Attending Provider on Discharge: Amairani Rg Primary Care Provider: Carrie Pena Condition: Improved Anticipated Discharge Date/Time: 04/19/23 10:34 Discharge Medications: New amoxicillin-pot clavulanate 875-125 mg Tablet 1 tab PO BIDWM 8 Days Qty: 8 0RF Continued fluvoxamine 100 mg tablet 100 mg PO BID Probiotic ibuprofen quetiapine 50 mg tablet 150 mg PO HS One A Day Men Complete 240-25-300 mcg tablet 1 tab PO DAILY lorazepam 1 mg tablet 1 mg PO 3XD PRN (Reason: anxiety) Discharge Orders: Discharge Order (Routine); Ordered 04/19/23 Ordered By: Amairani Rg Patient Education: Amoxicillin/Clavulanate Potassium (By mouth), Sleep Apnea (GEN), Aspiration Pneumonia (GEN) Additional Instructions: Finish the antibiotic as prescribed. You will need a follow up visit with your provider and a formal sleep study outpatient. Speech therapy recommending outpatient barium study. Activity Level: No Restrictions Discharge Diet: Regular Follow Up Appointments: Carrie Pena MD [Primary Care Provider] - 05/04/23 11:45 am ([facility] for post hospital follow up, suspected aspiration pneumonia. Recommend sleep study - discussed with father. ) Forms: IEV Info Instructions
== END 2023-04-19 12:05 | disposition home or self-care (01) | DRG 177 ==
LOC: ED 11:54 → MEDSURG 14:07
PROVIDERS: Internal Medicine; Admitting Provider Family Medicine; Emergency Provider Emergency Medicine; PCP Family Medicine; Visit Provider Physician Assistant
DX: J69.0 Pneumonitis due to inhalation of food and vomit (principal); J96.01 Acute respiratory failure with hypoxia; Q90.9 Down syndrome, unspecified; K90.0 Celiac disease
CPT/HCPCS: 36415; 71046; 80048; 82803; 83605; 83735; 83880; 84100; 84145; 84484; 85025; 85027; 86140; 87040; 87631; 92610; 99284; 99285; G0378; A9270; J0696; J1650

== ENCOUNTER 2023-06-30 11:01 | Inpatient (IN) | payer MEDICARE, MEDICAID, SELFPAY ==
[2023-06-30] VITALS (8 sets, daily range): BP systolic 116–135; BP diastolic 68–94; PULSE 80–108; RESP 18–20; TEMP 36.3–37.3; O2SAT 90–96; BMI 30.8
--- NOTE | 2023-06-30 11:17 | ED.NAVMDI ---
HPI - Nausea/Vomiting/Diarrhea General Time Seen by Provider: 11:17 Date Seen: 06/30/23 Chief complaint: Nausea/Vomiting Stated complaint: vomiting Time Seen by Provider: 06/30/23 11:15 Source: patient, family and RN notes reviewed Mode of arrival: ambulatory Limitations: no limitations History of Present Illness HPI Narrative: This 42-year-old male with down syndrome is coming in with family with concern of dehydration. They do have a primary care appointment within the clinic next week I believe on Sunday per the report. He say M has been having some intermittent recurrent nausea vomiting in and spells of anorexia where he just won't eat. He has been complaining of ?right arm pain? but dad feels that seems to be more his right side. They feel like he is resting with his elbows in arms above his head more. He was hospitalized with pneumonia in April. Did go into an urgent care in May for cough. He has not been coughing now. He they note he has had about a 60 lb weight loss in this time frame. They feel he is actually maybe been more constipated and has been using MiraLax, no diarrhea. No recent fevers. He is asked if he has pain, he states he is fine. I did ask him about throwing up earlier today, he states he is better now. His family notes that that is what he will say, that he is fine all the time. He has had no cardiac issues with his Down syndrome. No abdominal surgeries prior other than an umbilical hernia repair, but no internal abdominal surgeries. Related Data Home Medications Medication Instructions Recorded Confirmed Probiotic 04/17/23 06/05/23 ibuprofen 04/17/23 06/05/23 lorazepam 1 mg tablet 1 mg PO 3XD PRN anxiety 04/17/23 06/05/23 multivit,calcium,min-folic acid 1 tab PO DAILY 04/17/23 06/05/23 240 mcg-D3 25 mcg-lycop 300 mcg tablet (One A Day Men Complete) celecoxib 200 mg capsule 200 mg PO BID 06/30/23 06/30/23 fluvoxamine 100 mg tablet 100 mg PO BID 06/30/23 06/30/23 quetiapine 100 mg tablet 100 - 200 mg PO HS 06/30/23 06/30/23 Previous Rx's Medication Instructions Recorded albuterol sulfate 90 mcg/actuation 2 puff inhalation Q4-6H PRN 06/05/23 aerosol inhaler shortness of breath or wheezing #6.7 grams Allergies Allergy/AdvReac Type Severity Reaction Status Date / Time No Known Drug Allergies Allergy Verified 06/30/23 12:13 Review of Systems Status of ROS: Reports: 6 or more systems reviewed and unremarkable except as noted in History and below PFSH PFS Medical History Aspiration pneumonitis ?J69.0 - Pneumonitis due to inhalation of food and vomit (ICD-10) Pneumonia ?J18.9 - Pneumonia, unspecified organism (ICD-10) History of aspiration pneumonia ?Z87.01 - Personal history of pneumonia (recurrent) (ICD-10) Major depressive disorder ?F32.9 - Major depressive disorder, single episode, unspecified (ICD-10) Obsessive compulsive disorder ?F42.9 - Obsessive-compulsive disorder, unspecified (ICD-10) Celiac disease ?K90.0 - Celiac disease (ICD-10) Down syndrome ?Q90.9 - Down syndrome, unspecified (ICD-10) Cough ?R05.9 - Cough, unspecified (ICD-10) Surgical History H/O umbilical hernia repair ?Z98.890 - Other specified postprocedural states (ICD-10) ?Z87.19 - Personal history of other diseases of the digestive system (ICD-10) History of tympanoplasty ?Z98.890 - Other specified postprocedural states (ICD-10) Family History Maternal Grandfather Leukemia Maternal Grandmother Colon cancer Social History What is your current living situation?: I presently have a place to live Problems where you live: no known problems Problems where you live details: none In the past 12 months, utilities in danger of being shut off: no In past 12 months, lack of transportation kept you from medical appts, meetings, work, or getting things needed for daily living: no In the past 12 mos, have been you worried that your food would run out before you had money to buy more?: never true In the past 12 mos, the food you bought just didn't last and you didn't have money to buy more?: never true Highest level of school completed/degree received: some college, no degree Smoking Status: Never smoker How often do you have a drink containing alcohol: never AUDIT-C Alcohol total score: 0 Non-prescribed substance use: denies use Caffeine: No How often does anyone, including family, friends and others, physically hurt you: never How often does anyone, including family, friends and others, insult or talk down to you: never How often does anyone, including family, friends and others, threaten you with harm: never How often does anyone, including family, friends and others, scream or curse at you: never service: No Exam Const: Vital Signs, click to edit/add: Vital Signs - 24 hr 06/30/23 11:09 06/30/23 11:27 Temperature 99.1 F Pulse Rate [Right Pulse Oximeter] 102 H Respiratory Rate 18 Blood Pressure [Ri ght Upper Arm] 135/82 Pulse Oximetry 93 96 Oxygen Delivery Me thod Room Air This 42-year-old male is sitting in the bed, alert, interactive, very pleasant. Sclera clear, pupils equal round, conjugate gaze. Symmetrical facial function. Neck supple, no masses, feel no thyromegaly masses or nodules. Lungs are clear, do not hear any wheezing or crackles. CV regular rate and rhythm, no murmur, normal S1-S2, no S3-S4. Abdomen is mildly obese but soft, I cannot appreciate any organomegaly but body habitus does possibly obscure exam. There certainly is no tenderness or rebound or guarding. He is moving extremities. See no skin changes of his chest wall. He is mobilizing his arms, full range of motion. No tenderness over his chest wall. Documenting provider has reviewed patient's vital signs: yes Course Course ED Course: 42-year-old male has had significant weight loss, recurrent spells of nausea vomiting and anorexia. He is possibly having right chest wall pain. Will consider cardiac, respiratory, GI issues. Will also do thyroid testing. Have discussed with his family doing chest abdomen pelvis imaging just to ensure that we are not missing significant internal pathology. They would like to proceed with this. For the concerns of dehydration and him not eating and drinking again currently, will place an IV and give him a L of IV fluids. Will do full complement of blood work as well. Consultations Consultation #1: Just spoke with our general surgeon on-call Dr. Palacio. She will be at home shortly, will review images. Will order Protonix 80 mg IV in the interim. She would like to look at the images, will likely recommend treating for H pylori as well empirically in this situation. She will contact me back when she is seen the CT images. Family was given a copy of the CT, updated on the plan. I will touch base with them once I have spoken with the surgeon again. 1:21 p.m.: Dr. Palacio has called back. She agrees that this could be inflammation around a diverticulum verses a small contained perforation. She agrees with treating with the PPI and would start to antibiotic regimen for H pylori, hold on bismuth until he has had a swallow study with Gastrografin. No he EGD at this time due to risk perforation. She would keep him on clear liquids until he has completed the swallow study. Patient has not been eating or drinking again, will likely need IV fluid support and observe until Sunday when he can have a swallow study with Gastrografin. Did update family. Time: 12:59 Consultation #2: Have reviewed with the hospitalist Dr. El. He will be assuming care. I have ordered clarithromycin 500 mg and amoxicillin 1000 mg orally for Samuel. Time: 15:01 Vital Signs Vital signs: Initial Vital Signs Temperature 99.1 F 06/30/23 11:09 Temperature Source Temporal Artery Scan 06/30/23 11:09 Pulse Rate 102 H 06/30/23 11:09 Respiratory Rate 18 06/30/23 11:09 Blood Pressure 135/82 06/30/23 11:09 Blood Pressure Mean 99 06/30/23 11:09 Blood Pressure Position Sitting 06/30/23 11:09 Pulse Oximetry 93 06/30/23 11:09 Oxygen Delivery Method Room Air 06/30/23 11:09 Vital Signs Temperature 99.1 F 06/30/23 11:09 Pulse Rate 102 H 06/30/23 11:09 Respiratory Rate 18 06/30/23 11:09 Blood Pressure 135/82 06/30/23 11:09 Pulse Oximetry 93 06/30/23 11:09 Oxygen Delivery Method Room Air 06/30/23 11:09 Temperature 99.1 F 06/30/23 11:09 Pulse Rate 102 H 06/30/23 11:09 Respiratory Rate 18 06/30/23 11:09 Blood Pressure 135/82 06/30/23 11:09 Pulse Oximetry 96 06/30/23 11:27 Oxygen Delivery Method Room Air 06/30/23 11:09 Medications Administered Medications: Discontinued Medications Generic Name Dose Route Start Last Admin Trade Name Rosana PRN Reason Stop Dose Admin Sodium Chloride 1,000 mls @ 500 mls/hr 06/30/23 11:28 06/30/23 12:21 0.9 % Sodium Chloride 1000 Ml IV 06/30/23 13:27 500 mls/hr .Q2H ANIBAL Administration Pantoprazole Sodium 80 mg 06/30/23 13:03 06/30/23 13:27 Pantoprazole Sodium 40 Mg Inj IVP 06/30/23 13:04 80 mg ONCE ONE Administration MDM - Nausea/Vomiting/Diarrhea Lab Data Attestation: I reviewed the patient's lab results. Labs: Lab Results 06/30/23 06/30/23 Range/Units 11:42 12:02 WBC 8.19 (4.50-11.00) K/uL RBC 3.87 L (4.30-5.90) m/uL Hgb 12.1 L (13.5-17.5) gm/dL Hct 37.9 (37.0-53.0) % MCV 98 (80-100) fL MCH 31 (26-34) pg MCHC 32 (32-36) gm/dL RDW Coeff of [place] 15.3 (11.5-15.5) % Plt Count 340 (140-440) K/uL Neut % (Auto) 74.0 H (42.0-72.0) % Lymph % (Auto) 19.4 L (20-44) % [place] % (Auto) 5.6 (0.0-11.0) % Eos % (Auto) 0.4 (0.0-7.0) % Baso % (Auto) 0.4 (0.0-3.0) % Neut # (Auto) 6.10 (1.7-7.0) K/uL Lymph # (Auto) 1.60 (0.90-2.90) K/uL [place] # (Auto) 0.50 (0.00-0.90) K/UL Eos # (Auto) 0.03 (0.00-0.50) K/uL Baso # (Auto) 0.03 (0.00-0.30) K/uL Abs Immat Gran (auto) 0.02 (0.00-0.30) K/uL Imm/Tot Granulo (auto) 0.2 % Sodium 136 (135-149) mmol/L Potassium 3.4 L (3.6-5.1) mmol/L Chloride 99 (96-114) mmol/L Carbon Dioxide 28 (20-32) mmol/L Anion Gap 9 (7-15) mEq/L BUN 14 (5-24) mg/dL Creatinine 0.7 (0.5-1.5) mg/dL Estimated GFR 117 ml/min Glucose 98 (60-115) mg/dL Lactate 1.1 (0.5-1.9) mmol/L Calcium 9.2 (8.4-10.6) mg/dL Total Bilirubin 0.5 (0.1-1.5) mg/dL Direct Bilirubin 0.4 (0.0-0.5) mg/dL AST 25 (12-35) U/L ALT 16 (4-50) U/L Alkaline Phosphatase 73 (40-150) U/L Troponin I < 0.01 L (0.01-0.04) ng/mL C-Reactive Protein 4.9 H (0.5-1.0) mg/dL NT-Pro-B Natriuret Pep < 20 pg/mL Total Protein 7.8 (6.0-8.3) g/dL Albumin 4.1 (3.3-5.0) g/dL Lipase 225 (23-300) U/L TSH 1.550 (0.270-4.200) uIU/mL SARS-CoV-2 (PCR) Negative SARS-CoV-2 (Negative) Influenza Type A (PCR) Negative PCR FLU A (Negative) Influenza Type B (PCR) Negative PCR FLU B (Negative) RSV (PCR) Negative PCR RSV (Negative) Imaging Data CT Chest/Ab/Pelvis: Attestation: I have reviewed the pertinent imaging results. Radiologist's impression: Patient: ENEDELIA KEENAN Facility:?[facility] Patient ID:?[id number] Site Patient ID:?[id number]. Site :?[id number] Study:?CT Chest/Abd/Pelvis w/81 cc's Isovue 370-06/30/2023 12:12:56 PM Ordering Physician:Avni Dela Cruz Final Report: Indication: Nausea vomiting, anorexia 60 pound weight loss in 3 months Technique: Volumetric multidetector CT images of the chest, abdomen, and pelvis were obtained after the administration of intravenous contrast. 81 cc Isovue 370 low osmolar intravenous contrast Comparison: CT chest September 25, 2021 FINDINGS: CHEST The thoracic inlet is unremarkable. The thyroid gland is within normal limits. 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 There is mild effacement of the underlying trachea. Stable pericardial effusion. There is no filling defect to suggest pulmonary embolus. There is no mediastinal, hilar, or axillary adenopathy. There is minimal dependent basilar atelectasis and mild interstitial prominence which may represent pulmonary vascular congestion and/or sequela of bronchitis changes with mild central bronchial thickening. No pneumothorax or pleural effusion. The thoracic osseus structures are intact without fracture, lytic, or blastic lesion. The thoracic vertebral body heights are grossly maintained in satisfactory alignment without evidence of displaced fracture. ABDOMEN AND PELVIS The liver is normal in attenuation and size. The portal vein is patent. The spleen is normal in attenuation and size. The gallbladder is unremarkable without radiopaque calculus. There is no intrahepatic or common ductal dilatation. There is mild nonspecific thickening of the distal esophagus with demonstration of moderate mucosal hyperemia and focal thickening of the gastric antrum/proximal duodenum with mild duodenal and Sarai antral inflammatory change likely representing sequela of peptic ulcer disease. No evidence of free air or obvious open perforation. There is demonstration of a small likely duodenal diverticulum versus contained perforation seen on series 2, image 145.. The pancreas is normal in enhancement without significant atrophy. The adrenal glands are unremarkable without evidence of adenoma. The kidneys are preserved and corticomedullary differentiation. There is no hydronephrosis or radiopaque calculus. There is a moderate amount of intracolonic stool. There is minimal distal colonic diverticulosis. No significant pericolonic inflammation is appreciated. The appendix is unremarkable without significant inflammatory change. The abdominal aorta is nonaneurysmal with no significant atherosclerotic disease. The remaining solid pelvic viscera are otherwise grossly unremarkable. There is no pathologically enlarged epigastric, mesenteric, retroperitoneal, or pelvic sidewall lymph node. Evaluation of the ventral abdomen is limited due to respiratory motion artifact. There is no free air or free fluid. The visualized osseous structures are grossly intact without evidence of displaced fracture, lytic or blastic lesion. 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 There is moderate anterolisthesis of L4 on L5 with severe focal degenerative disc disease. There is spondylolysis of the inferior articular processes. Impression: 1. Demonstration of a small contained perforation versus duodenal diverticulum arising from the 2nd portion of the duodenal measuring 1.8 centimeters in greatest dimension with moderate Sarai antral and Sarai duodenal inflammatory changes likely representing peptic ulcer disease sequela. If there is persistent clinical concern follow-up with direct visualization. 2. Mild nonspecific interstitial changes with minimal basilar ground-glass which may represent atelectasis and/or mild bronchial thickening. 3. No other acute abnormalities of the chest, abdomen or pelvis. Please note that all CT scans at this facility use dose modulation, iterative reconstruction, and/or weight-based dosing when appropriate to reduce radiation dose to as low as reasonably achievable. Dictated by Carlos Garcia MD @ 06/30/2023 12:44:14 PM (Electronic Signature) ECG Data Attestation: I personally reviewed and interpreted this ECG as follows: (Normal sinus rhythm, 92 beats per minute. Flipped T-waves without ST segment changes V1 through V3.) ECG interpretation date: 06/30/23 ECG interpretation time: 12:54 Discharge Plan Discharge Clinical Impression: Nausea & vomiting, Abdominal pain Patient Disposition: Admitted As Observation Prescriptions: No Action albuterol sulfate 90 mcg/actuation HFA aerosol inhaler 2 puff inhalation Q4-6H PRN (Reason: shortness of breath or wheezing) Qty: 6.7 0RF celecoxib 200 mg capsule 200 mg PO BID quetiapine 100 mg tablet 100 - 200 mg PO HS fluvoxamine 100 mg tablet 100 mg PO BID Probiotic ibuprofen One A Day Men Complete 240-25-300 mcg tablet 1 tab PO DAILY lorazepam 1 mg tablet 1 mg PO 3XD PRN (Reason: anxiety) Follow Up/Referrals: Carrie Pena MD [Primary Care Provider] -
--- NOTE | 2023-06-30 11:27 | CT_ITS ---
Patient: ENEDELIA KEENAN Facility:?[facility] Patient ID:?[id number] Site Patient ID:?[id number]. Site :?1980 Study:?CT-Chest/Abd/Pelvis w/81 cc's Isovue 370-06/30/2023 12:12:56 PM Ordering Physician:Avni Dela Cruz Final Report: Indication: Nausea vomiting, anorexia 60 pound weight loss in 3 months Technique: Volumetric multidetector CT images of the chest, abdomen, and pelvis were obtained after the administration of intravenous contrast. 81 cc Isovue 370 low osmolar intravenous contrast Comparison: CT chest September 25, 2021 FINDINGS: CHEST The thoracic inlet is unremarkable. The thyroid gland is within normal limits. 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 There is mild effacement of the underlying trachea. Stable pericardial effusion. There is no filling defect to suggest pulmonary embolus. There is no mediastinal, hilar, or axillary adenopathy. There is minimal dependent basilar atelectasis and mild interstitial prominence which may represent pulmonary vascular congestion and/or sequela of bronchitis changes with mild central bronchial thickening. No pneumothorax or pleural effusion. The thoracic osseus structures are intact without fracture, lytic, or blastic lesion. The thoracic vertebral body heights are grossly maintained in satisfactory alignment without evidence of displaced fracture. ABDOMEN AND PELVIS The liver is normal in attenuation and size. The portal vein is patent. The spleen is normal in attenuation and size. The gallbladder is unremarkable without radiopaque calculus. There is no intrahepatic or common ductal dilatation. There is mild nonspecific thickening of the distal esophagus with demonstration of moderate mucosal hyperemia and focal thickening of the gastric antrum/proximal duodenum with mild duodenal and Sarai antral inflammatory change likely representing sequela of peptic ulcer disease. No evidence of free air or obvious open perforation. There is demonstration of a small likely duodenal diverticulum versus contained perforation seen on series 2, image 145.. The pancreas is normal in enhancement without significant atrophy. The adrenal glands are unremarkable without evidence of adenoma. The kidneys are preserved and corticomedullary differentiation. There is no hydronephrosis or radiopaque calculus. There is a moderate amount of intracolonic stool. There is minimal distal colonic diverticulosis. No significant pericolonic inflammation is appreciated. The appendix is unremarkable without significant inflammatory change. The abdominal aorta is nonaneurysmal with no significant atherosclerotic disease. The remaining solid pelvic viscera are otherwise grossly unremarkable. There is no pathologically enlarged epigastric, mesenteric, retroperitoneal, or pelvic sidewall lymph node. Evaluation of the ventral abdomen is limited due to respiratory motion artifact. There is no free air or free fluid. The visualized osseous structures are grossly intact without evidence of displaced fracture, lytic or blastic lesion. 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 There is moderate anterolisthesis of L4 on L5 with severe focal degenerative disc disease. There is spondylolysis of the inferior articular processes. Impression: 1. Demonstration of a small contained perforation versus duodenal diverticulum arising from the 2nd portion of the duodenal measuring 1.8 centimeters in greatest dimension with moderate Sarai antral and Sarai duodenal inflammatory changes likely representing peptic ulcer disease sequela. If there is persistent clinical concern follow-up with direct visualization. 2. Mild nonspecific interstitial changes with minimal basilar ground-glass which may represent atelectasis and/or mild bronchial thickening. 3. No other acute abnormalities of the chest, abdomen or pelvis. Please note that all CT scans at this facility use dose modulation, iterative reconstruction, and/or weight-based dosing when appropriate to reduce radiation dose to as low as reasonably achievable. Dictated by Carlos Garcia MD @ 06/30/2023 12:44:14 PM Signed by:?Carlos Garcia MD @06/30/2023 12:44:14 PM (Electronic Signature)
[2023-06-30 11:50] LABS: Lactate* 1.1 mmol/L (0.5-1.9)
[2023-06-30 11:55] LABS: Basophils Absolute Auto 0.03 K/uL (0.00-0.30); Basophils Percent Auto 0.4 % (0.0-3.0); Eosinophils Absolute Auto 0.03 K/uL (0.00-0.50); Eosinophils Percent Auto 0.4 % (0.0-7.0); Hematocrit 37.9 % (37.0-53.0); Hemoglobin* 12.1 gm/dL (13.5-17.5); Immature Granulocytes Abs Auto 0.02 K/uL (0.00-0.30); Immature Granulocytes Pct Auto 0.2 %; Lymphocytes Percent Auto 19.4 % (20-44); Mean Corpuscular HGB Conc 32 gm/dL (32-36); Mean Corpuscular Hemoglobin 31 pg (26-34); Mean Corpuscular Volume 98 fL (80-100); Monocytes Percent Auto 5.6 % (0.0-11.0); Platelet Count* 340 K/uL (140-440); RDW Coefficient of Variation % 15.3 % (11.5-15.5); Red Blood Count 3.87 m/uL (4.30-5.90); White Blood Count* 8.19 K/uL (4.50-11.00)
[2023-06-30 12:06] LABS: Slide Review Reflex No
[2023-06-30 12:08] LABS: Albumin* 4.1 g/dL (3.3-5.0); Chloride* 99 mmol/L (96-114)
[2023-06-30 12:09] LABS: Potassium* 3.4 mmol/L (3.6-5.1); Sodium* 136 mmol/L (135-149)
[2023-06-30 12:11] LABS: Creatinine* 0.7 mg/dL (0.5-1.5); Estimated Glomerular Filt Rate 117 ml/min
[2023-06-30 12:12] LABS: Alanine Aminotransferase* 16 U/L (4-50); Alkaline Phosphatase* 73 U/L (40-150); Anion Gap 9 mEq/L (7-15); Aspartate Amino Transferase* 25 U/L (12-35); Bilirubin Direct* 0.4 mg/dL (0.0-0.5); Bilirubin Total* 0.5 mg/dL (0.1-1.5); Blood Urea Nitrogen* 14 mg/dL (5-24); Calcium* 9.2 mg/dL (8.4-10.6); Carbon Dioxide* 28 mmol/L (20-32); Glucose* 98 mg/dL (60-115); Lipase* 225 U/L (23-300); Total Protein* 7.8 g/dL (6.0-8.3)
[2023-06-30 12:15] LABS: C Reactive Protein* 4.9 mg/dL (0.5-1.0)
[2023-06-30] MEDS: 0.9 % SODIUM CHLORIDE 1000 ml 1,000 ML 500 ML IV (12:21)
[2023-06-30 12:25] LABS: NT Pro B Type NatriureticPept* < 20 pg/mL; Troponin I* < 0.01 ng/mL (0.01-0.04)
[2023-06-30 12:46] LABS: PCR FLU A Negative PCR FLU A (Negative); PCR FLU B Negative PCR FLU B (Negative); PCR RSV Negative PCR RSV (Negative); SARS PCR* Negative SARS-CoV-2 (Negative)
[2023-06-30] MEDS: PANTOPRAZOLE SODIUM 40 MG INJ 80 MG IVP (13:27)
[2023-06-30] MEDS: CLARITHROMYCIN 500 MG TABLET PO ×2 (15:27→21:50)
[2023-06-30] MEDS: AMOXICILLIN 250 MG CAPSULE 1000 MG PO ×2 (15:28→21:50)
--- NOTE | 2023-06-30 16:00 | PM.IMHP1 ---
Hospitalist- H&P: HPI History of Present Illness Date Seen: 06/30/23 Chief complaint: vomiting Narrative: Enedelia Hatch is a 42 year old male with down syndrome, frontal temporal dementia, history of celiac disease and arthritis admitted to the hospital with intractable vomiting. Patient is seen with his Marge ROBBINS with additional information obtained from the medical record. Patient was hospitalized here at the beginning of April with pneumonia, suspected to be aspiration pneumonia. He was seen in clinic on May 04 for follow-up of that pneumonia as well as follow-up with suspected obstructive sleep apnea and swallowing difficulties and arthritis in his back with radiculopathy. He was started on Celebrex 200 mg twice daily and referred for sleep study. Since the beginning of May about 6 weeks ago he has had a general decline with poor appetite, nausea and vomiting and occasional complaints of right chest or flank pain. He has lost weight. His weight on May 04 was 88.6 kg. In the last couple days he has had almost nothing to eat or drink and what he has swallowed has been followed by vomiting. He has not urinated in the last 24 hours. He has also been more constipated recently. History are not indicates a history of celiac disease. Details of this are uncertain. Previous surgeries include recurrent repair of a umbilical hernia x3. Review of Systems Narrative: No recent respiratory symptoms. He has been complaining of pain in his right arm indicating may be the right side of his chest as the location of the pain. He is unable to pinpoint the pain now or give any further details about things that might reliever provoke his pain. He also has back pain which is thought to be a radiculopathy. He is had a decline over the past couple years in his ability to walk independently. He sleeps in a recliner at home and family have noted some episodes of aspiration and there cutting his food into smaller pieces his psychiatrist has been adjusting his medications, Seroquel and fluvoxamine. He is currently on lower doses than were prescribed by the psychiatrist but not having significant behavioral problems. [facility] Medical History (Updated 06/30/23 @ 16:19 by Herber El MD) Duodenal ulcer ?K26.9 - Duodenal ulcer, unspecified as acute or chronic, without hemorrhage or perforation (ICD-10) Obstructive sleep apnea ?G47.33 - Obstructive sleep apnea (adult) (pediatric) (ICD-10) Chronic back pain ?M54.9 - Dorsalgia, unspecified (ICD-10) ?G89.29 - Other chronic pain (ICD-10) Aspiration pneumonitis ?J69.0 - Pneumonitis due to inhalation of food and vomit (ICD-10) Pneumonia ?J18.9 - Pneumonia, unspecified organism (ICD-10) History of aspiration pneumonia ?Z87.01 - Personal history of pneumonia (recurrent) (ICD-10) Major depressive disorder ?F32.9 - Major depressive disorder, single episode, unspecified (ICD-10) Obsessive compulsive disorder ?F42.9 - Obsessive-compulsive disorder, unspecified (ICD-10) Celiac disease ?K90.0 - Celiac disease (ICD-10) Down syndrome ?Q90.9 - Down syndrome, unspecified (ICD-10) Cough ?R05.9 - Cough, unspecified (ICD-10) Surgical History H/O umbilical hernia repair ?Z98.890 - Other specified postprocedural states (ICD-10) ?Z87.19 - Personal history of other diseases of the digestive system (ICD-10) History of tympanoplasty ?Z98.890 - Other specified postprocedural states (ICD-10) Family History Maternal Grandfather Leukemia Maternal Grandmother Colon cancer Social History (Updated 06/30/23 @ 16:11 by Herber El MD) Narrative: He lives with his parents and there is a personal care worker, Marge, who is with him 40 hours a week. He does not smoke or drink alcohol. What is your current living situation?: I presently have a place to live Problems where you live: no known problems Problems where you live details: none In the past 12 months, utilities in danger of being shut off: no In past 12 months, lack of transportation kept you from medical appts, meetings, work, or getting things needed for daily living: no In the past 12 mos, have been you worried that your food would run out before you had money to buy more?: never true In the past 12 mos, the food you bought just didn't last and you didn't have money to buy more?: never true Highest level of school completed/degree received: some college, no degree Smoking Status: Never smoker How often do you have a drink containing alcohol: never AUDIT-C Alcohol total score: 0 Non-prescribed substance use: denies use Caffeine: No How often does anyone, including family, friends and others, physically hurt you: never How often does anyone, including family, friends and others, insult or talk down to you: never How often does anyone, including family, friends and others, threaten you with harm: never How often does anyone, including family, friends and others, scream or curse at you: never service: No Meds Home Medications and Allergies Home Medications Medication Instructions Recorded Confirmed Type Probiotic 04/17/23 06/05/23 History ibuprofen 04/17/23 06/05/23 History lorazepam 1 mg tablet 1 mg PO 3XD PRN anxiety 04/17/23 06/05/23 History multivit,calcium,min-folic acid 1 tab PO DAILY 04/17/23 06/05/23 History 240 mcg-D3 25 mcg-lycop 300 mcg tablet (One A Day Men Complete) celecoxib 200 mg capsule 200 mg PO BID 06/30/23 06/30/23 History fluvoxamine 100 mg tablet 100 mg PO BID 06/30/23 06/30/23 History quetiapine 100 mg tablet 100 - 200 mg PO HS 06/30/23 06/30/23 History Allergies Allergy/AdvReac Type Severity Reaction Status Date / Time No Known Drug Allergies Allergy Verified 06/30/23 12:13 Exam Narrative: Exam Narrative: He is alert pleasant and in no distress. He reports having no concerns at this time. He denies any pain respiratory problems. He is not nauseated or having abdominal pain. Eyes normal. Facial appearance consistent with down syndrome. Oropharynx with large tongue. Neck is supple without mass or adenopathy. No stridor. Respirations are clear to auscultation. Cardiovascular: S1, S2, regular rate and rhythm. Abdomen: Bowel sounds active. Abdomen is soft without tenderness or mass. External genitalia normal. Lower extremities without edema. Intact pedal pulses. No rash. Const: Vital Signs, click to edit/add: Vital Signs - 24 hr 06/30/23 11:09 06/30/23 11:27 06/30/23 12:14 Temperature 99.1 F Pulse Rate [Right Pulse Oximeter] 102 H 80 Respiratory Rate 18 18 Blood Pressure [Ri ght Upper Arm] 135/82 116/88 Pulse Oximetry 93 96 96 Oxygen Delivery Me thod Room Air 06/30/23 14:00 Temperature Pulse Rate [Right Pulse Oximeter] 84 Respiratory Rate 18 Blood Pressure [Ri ght Upper Arm] 116/78 Pulse Oximetry 96 Oxygen Delivery Me thod Room Air Documenting provider has reviewed patient's vital signs: yes Hospitalist - H&P: Result Labs Labs: Short CBC 06/30/23 Range/Units 11:42 WBC 8.19 (4.50-11.00) K/uL Hgb 12.1 L (13.5-17.5) gm/dL Hct 37.9 (37.0-53.0) % Plt Count 340 (140-440) K/uL BMP 06/30/23 11:42 Sodium 136 Potassium 3.4 L Chloride 99 Carbon Dioxide 28 BUN 14 Creatinine 0.7 Glucose 98 Calcium 9.2 Cardiac Enzymes 06/30/23 Range/Units 11:42 Troponin I < 0.01 L (0.01-0.04) ng/mL Liver Function 06/30/23 Range/Units 11:42 Total Bilirubin 0.5 (0.1-1.5) mg/dL Direct Bilirubin 0.4 (0.0-0.5) mg/dL AST 25 (12-35) U/L ALT 16 (4-50) U/L Alkaline Phosphatase 73 (40-150) U/L Albumin 4.1 (3.3-5.0) g/dL Imaging CT Chest/Ab/Pelvis: Radiologist's impression: Patient: ENEDELIA HATCH Facility:?[facility] Patient ID:?[id number] Site Patient ID:?[id number]. Site :?[id number] Study:?CT Chest/Abd/Pelvis w/81 cc's Isovue 370-06/30/2023 12:12:56 PM Ordering Physician:Avni Dela Cruz Final Report: Indication: Nausea vomiting, anorexia 60 pound weight loss in 3 months Technique: Volumetric multidetector CT images of the chest, abdomen, and pelvis were obtained after the administration of intravenous contrast. 81 cc Isovue 370 low osmolar intravenous contrast Comparison: CT chest September 25, 2021 FINDINGS: CHEST The thoracic inlet is unremarkable. The thyroid gland is within normal limits. 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 There is mild effacement of the underlying trachea. Stable pericardial effusion. There is no filling defect to suggest pulmonary embolus. There is no mediastinal, hilar, or axillary adenopathy. There is minimal dependent basilar atelectasis and mild interstitial prominence which may represent pulmonary vascular congestion and/or sequela of bronchitis changes with mild central bronchial thickening. No pneumothorax or pleural effusion. The thoracic osseus structures are intact without fracture, lytic, or blastic lesion. The thoracic vertebral body heights are grossly maintained in satisfactory alignment without evidence of displaced fracture. ABDOMEN AND PELVIS The liver is normal in attenuation and size. The portal vein is patent. The spleen is normal in attenuation and size. The gallbladder is unremarkable without radiopaque calculus. There is no intrahepatic or common ductal dilatation. There is mild nonspecific thickening of the distal esophagus with demonstration of moderate mucosal hyperemia and focal thickening of the gastric antrum/proximal duodenum with mild duodenal and Sarai antral inflammatory change likely representing sequela of peptic ulcer disease. No evidence of free air or obvious open perforation. There is demonstration of a small likely duodenal diverticulum versus contained perforation seen on series 2, image 145.. The pancreas is normal in enhancement without significant atrophy. The adrenal glands are unremarkable without evidence of adenoma. The kidneys are preserved and corticomedullary differentiation. There is no hydronephrosis or radiopaque calculus. There is a moderate amount of intracolonic stool. There is minimal distal colonic diverticulosis. No significant pericolonic inflammation is appreciated. The appendix is unremarkable without significant inflammatory change. The abdominal aorta is nonaneurysmal with no significant atherosclerotic disease. The remaining solid pelvic viscera are otherwise grossly unremarkable. There is no pathologically enlarged epigastric, mesenteric, retroperitoneal, or pelvic sidewall lymph node. Evaluation of the ventral abdomen is limited due to respiratory motion artifact. There is no free air or free fluid. The visualized osseous structures are grossly intact without evidence of displaced fracture, lytic or blastic lesion. 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 There is moderate anterolisthesis of L4 on L5 with severe focal degenerative disc disease. There is spondylolysis of the inferior articular processes. Impression: 1. Demonstration of a small contained perforation versus duodenal diverticulum arising from the 2nd portion of the duodenal measuring 1.8 centimeters in greatest dimension with moderate Sarai antral and Sarai duodenal inflammatory changes likely representing peptic ulcer disease sequela. If there is persistent clinical concern follow-up with direct visualization. 2. Mild nonspecific interstitial changes with minimal basilar ground-glass which may represent atelectasis and/or mild bronchial thickening. 3. No other acute abnormalities of the chest, abdomen or pelvis. Assessment and Plan Assessment and plan (1) Nausea & vomiting: Problem comment: Suspected to be due to duodenal ulcer. Clear liquids, antiemetics, empiric treatment of H pylori Status: Acute (2) Duodenal ulcer: Problem comment: Lesion in the duodenum suspected to be the cause of his vomiting and possibly the right sided pain he is reporting. Empiric treatment for H pylori. Obtain upper GI eyes swallow evaluation with Gastrografin. Consult surgery Status: Suspected (3) Chronic back pain: Problem comment: Stop Celebrex pending evaluation of duodenal ulcer Status: Acute (4) Obstructive sleep apnea: Problem comment: Pending sleep study Status: Suspected Plan Patient has been the hospital for ongoing evaluation management intractable vomiting, suspected duodenal ulcer. Total Time Spent Total Time Spent: Total time spent today is 60 minutes, 40 minutes in coordination of care discussing with patient and care providers ongoing evaluation and management of duodenal ulcer and vomiting
[2023-06-30 17:16] LABS: Iron* 62 ug/dL (49-181); Percent Iron Saturation 21 % (20-50); Total Iron Binding Capacity 300 ug/dL (261-462)
--- NOTE | 2023-06-30 18:23 | PM.GSCN ---
History of Present Illness Consult details Date Seen: 06/30/23 Consult date: 06/30/23 Narrative: Patient is a 42-year-old male with Down syndrome and celiac disease, who presented to the emergency department with intractable vomiting. The patient was seen today with his mom, who was able to provide some history. She states that since the beginning of May he has had overall a poor appetite, nausea and vomiting. Since the beginning of May he has lost about 20 lb. He has a hard time telling people when he has abdominal pain, so she is unsure how much discomfort he has had. He has continued to have bowel movements, although much less than what is normal for him. A few weeks earlier he had several small bowel movements which were very hard and dark in appearance. In the last couple days he has had almost nothing to eat or drink and has been vomiting continuously. Denies any fevers at home. His abdominal surgical history is positive for umbilical hernia repair. He was hospitalized in April for pneumonia. Review of Systems Status of ROS: Reports: unobtainable due to mental status [facility] Medical History (Updated 06/30/23 @ 16:19 by Herber El MD) Duodenal ulcer ?K26.9 - Duodenal ulcer, unspecified as acute or chronic, without hemorrhage or perforation (ICD-10) Obstructive sleep apnea ?G47.33 - Obstructive sleep apnea (adult) (pediatric) (ICD-10) Chronic back pain ?M54.9 - Dorsalgia, unspecified (ICD-10) ?G89.29 - Other chronic pain (ICD-10) Aspiration pneumonitis ?J69.0 - Pneumonitis due to inhalation of food and vomit (ICD-10) Pneumonia ?J18.9 - Pneumonia, unspecified organism (ICD-10) History of aspiration pneumonia ?Z87.01 - Personal history of pneumonia (recurrent) (ICD-10) Major depressive disorder ?F32.9 - Major depressive disorder, single episode, unspecified (ICD-10) Obsessive compulsive disorder ?F42.9 - Obsessive-compulsive disorder, unspecified (ICD-10) Celiac disease ?K90.0 - Celiac disease (ICD-10) Down syndrome ?Q90.9 - Down syndrome, unspecified (ICD-10) Cough ?R05.9 - Cough, unspecified (ICD-10) Surgical History H/O umbilical hernia repair ?Z98.890 - Other specified postprocedural states (ICD-10) ?Z87.19 - Personal history of other diseases of the digestive system (ICD-10) History of tympanoplasty ?Z98.890 - Other specified postprocedural states (ICD-10) Family History Maternal Grandfather Leukemia Maternal Grandmother Colon cancer Social History (Updated 06/30/23 @ 16:11 by Herber El MD) Narrative: He lives with his parents and there is a personal care aide, Marge, who is with him 40 hours a week. He does not smoke or drink alcohol. What is your current living situation?: I presently have a place to live Problems where you live: no known problems Problems where you live details: none In the past 12 months, utilities in danger of being shut off: no In past 12 months, lack of transportation kept you from medical appts, meetings, work, or getting things needed for daily living: no In the past 12 mos, have been you worried that your food would run out before you had money to buy more?: never true In the past 12 mos, the food you bought just didn't last and you didn't have money to buy more?: never true Highest level of school completed/degree received: some college, no degree Smoking Status: Never smoker How often do you have a drink containing alcohol: never AUDIT-C Alcohol total score: 0 Non-prescribed substance use: denies use Caffeine: No How often does anyone, including family, friends and others, physically hurt you: never How often does anyone, including family, friends and others, insult or talk down to you: never How often does anyone, including family, friends and others, threaten you with harm: never How often does anyone, including family, friends and others, scream or curse at you: never service: No Meds Home Medications and Allergies Home Medications Medication Instructions Recorded Confirmed Type Probiotic 04/17/23 06/05/23 History ibuprofen 04/17/23 06/05/23 History lorazepam 1 mg tablet 1 mg PO 3XD PRN anxiety 04/17/23 06/05/23 History multivit,calcium,min-folic acid 1 tab PO DAILY 04/17/23 06/05/23 History 240 mcg-D3 25 mcg-lycop 300 mcg tablet (One A Day Men Complete) celecoxib 200 mg capsule 200 mg PO BID 06/30/23 06/30/23 History fluvoxamine 100 mg tablet 100 mg PO BID 06/30/23 06/30/23 History quetiapine 100 mg tablet 100 - 200 mg PO HS 06/30/23 06/30/23 History Allergies Allergy/AdvReac Type Severity Reaction Status Date / Time No Known Drug Allergies Allergy Verified 06/30/23 12:13 Exam Narrative: Exam Narrative: General: Alert and oriented. Nontoxic in appearance and lying comfortably in bed. Respiratory: Equal breath rise bilaterally, maintained on room air CV: Well perfused, regular rhythm and rate Abdomen: Supraumbilical midline incision well healed. Patient denies any tenderness to palpation but does admit to ?discomfort?. The discomfort appears to be mild and diffuse with no guarding or rebound noted. Abdomen is soft, nondistended. No evidence of peritonitis. Const: Vital Signs, click to edit/add: Vital Signs - 24 hr 06/30/23 11:09 06/30/23 11:27 06/30/23 12:14 Temperature 99.1 F Pulse Rate [Right Pulse Oximeter] 102 H 80 Pulse Rate [Right Radial] Respiratory Rate 18 18 Blood Pressure [Ri ght Arm] Blood Pressure [Ri ght Upper Arm] 135/82 116/88 Pulse Oximetry 93 96 96 Oxygen Delivery Me thod Room Air 06/30/23 14:00 06/30/23 16:12 06/30/23 16:21 Temperature 97.4 F L Pulse Rate [Right Pulse Oximeter] 84 Pulse Rate [Right Radial] 85 Respiratory Rate 18 20 20 Blood Pressure [Ri ght Arm] 130/94 H Blood Pressure [Ri ght Upper Arm] 116/78 Pulse Oximetry 96 95 95 Oxygen Delivery Me thod Room Air Room Air Room Air Results Labs Labs: Abnormal lab results 06/30/23 Range/Units 11:42 RBC 3.87 L (4.30-5.90) m/uL Hgb 12.1 L (13.5-17.5) gm/dL Neut % (Auto) 74.0 H (42.0-72.0) % Lymph % (Auto) 19.4 L (20-44) % Potassium 3.4 L (3.6-5.1) mmol/L Troponin I < 0.01 L (0.01-0.04) ng/mL C-Reactive Protein 4.9 H (0.5-1.0) mg/dL Diabetes panel 06/30/23 Range/Units 11:42 Sodium 136 (135-149) mmol/L Potassium 3.4 L (3.6-5.1) mmol/L Chloride 99 (96-114) mmol/L Carbon Dioxide 28 (20-32) mmol/L BUN 14 (5-24) mg/dL Creatinine 0.7 (0.5-1.5) mg/dL Glucose 98 (60-115) mg/dL Calcium 9.2 (8.4-10.6) mg/dL AST 25 (12-35) U/L ALT 16 (4-50) U/L Alkaline Phosphatase 73 (40-150) U/L Total Protein 7.8 (6.0-8.3) g/dL Albumin 4.1 (3.3-5.0) g/dL Thyroid panel 06/30/23 Range/Units 11:42 TSH 1.550 (0.270-4.200) uIU/mL Calcium panel 06/30/23 Range/Units 11:42 Calcium 9.2 (8.4-10.6) mg/dL Albumin 4.1 (3.3-5.0) g/dL Pituitary panel 06/30/23 Range/Units 11:42 Sodium 136 (135-149) mmol/L Potassium 3.4 L (3.6-5.1) mmol/L Chloride 99 (96-114) mmol/L Carbon Dioxide 28 (20-32) mmol/L BUN 14 (5-24) mg/dL Creatinine 0.7 (0.5-1.5) mg/dL Glucose 98 (60-115) mg/dL Calcium 9.2 (8.4-10.6) mg/dL TSH 1.550 (0.270-4.200) uIU/mL Adrenal panel 06/30/23 Range/Units 11:42 Sodium 136 (135-149) mmol/L Potassium 3.4 L (3.6-5.1) mmol/L Chloride 99 (96-114) mmol/L Carbon Dioxide 28 (20-32) mmol/L BUN 14 (5-24) mg/dL Creatinine 0.7 (0.5-1.5) mg/dL Glucose 98 (60-115) mg/dL Calcium 9.2 (8.4-10.6) mg/dL Total Bilirubin 0.5 (0.1-1.5) mg/dL AST 25 (12-35) U/L ALT 16 (4-50) U/L Alkaline Phosphatase 73 (40-150) U/L Total Protein 7.8 (6.0-8.3) g/dL Albumin 4.1 (3.3-5.0) g/dL All other labs normal. Imaging Abdomen CT scan report/results: report reviewed and image reviewed Progress Note:A&P Assessment and plan (1) Duodenal ulcer: Status: Suspected Assessment and Plan: Patient is a 42-year-old male with weight loss and intractable vomiting. Workup is significant for CT imaging demonstrating inflammation of the antrum and duodenum, as well as a small contained perforation on the posterior aspect of the duo versus duodenal diverticulum. At this time patient vital signs are stable and he is nontoxic in appearance. Benign abdominal exam. This is likely a subacute process that has been going on since the beginning of May. No concern at this time for uncontained perforation requiring emergent surgical intervention. Perforation is most likely secondary to peptic ulcer disease. This could be due to H pylori, NSAID use, or stress associated with recent hospitalization. -okay for clear liquids -antiemetics as needed -agree with empiric treatment of H pylori -recommend Gastrografin swallow study Will continue to follow patient while in the hospital, please call with any acute clinical changes, questions or concerns.
--- NOTE | 2023-06-30 18:33 | PC.NURSE ---
end of shift. he is alert to self. Pt is very pleasant and cooperative. mom is here and is loving and caring. Afebrile. Denies pain. Up with SBA. SL is patent. he is on clears. Surgery MD was here to see. no nausea, he is on a clear liquid diet. he is up with SBA. need a stool sample. he is void int he toilet.
[2023-06-30] MEDS: QUETIAPINE 100 MG TABLET 200 MG PO (21:49)
[2023-06-30] MEDS: OMEPRAZOLE 20 MG CAPSULE DR 40 MG PO (21:49)
[2023-06-30] MEDS: SODIUM CHLORIDE 0.9 % (FLUSH) 10 ML SYRINGE 5 ML IVF (21:49)
[2023-06-30] MEDS: ONDANSETRON 2 MG/ML inj 4 MG IVP (22:31)
[2023-07-01] VITALS (7 sets, daily range): BP systolic 109–123; BP diastolic 71–80; PULSE 85–112; RESP 16–20; TEMP 36.7–37.2; O2SAT 90–93
--- NOTE | 2023-07-01 05:14 | PC.NURSE ---
[id number]: Patient pleasant and cooperative. Mother at bedside and supportive. Intermittent cough. Denies pain. SBA. Decreased appetite and intake. According to mother Savanah, patient is a very picky eater. Zofran x1 for Nausea. Appeared to rest well during noc.
[2023-07-01 07:08] LABS: Basophils Absolute Auto 0.03 K/uL (0.00-0.30); Basophils Percent Auto 0.6 % (0.0-3.0); Eosinophils Absolute Auto 0.05 K/uL (0.00-0.50); Eosinophils Percent Auto 0.9 % (0.0-7.0); Hematocrit 34.6 % (37.0-53.0); Hemoglobin* 10.9 gm/dL (13.5-17.5); Immature Granulocytes Abs Auto 0.02 K/uL (0.00-0.30); Immature Granulocytes Pct Auto 0.4 %; Lymphocytes Absolute Auto 1.57 K/uL (0.90-2.90); Lymphocytes Percent Auto 29.7 % (20-44); Mean Corpuscular HGB Conc 32 gm/dL (32-36); Mean Corpuscular Hemoglobin 31 pg (26-34); Mean Corpuscular Volume 99 fL (80-100); Monocytes Percent Auto 6.4 % (0.0-11.0); Neutrophils Absolute Auto 3.27 K/uL (1.7-7.0); Platelet Count* 297 K/uL (140-440); RDW Coefficient of Variation % 15.3 % (11.5-15.5); Red Blood Count 3.48 m/uL (4.30-5.90); White Blood Count* 5.28 K/uL (4.50-11.00)
[2023-07-01 07:18] LABS: Chloride* 100 mmol/L (96-114); Potassium* 3.4 mmol/L (3.6-5.1); Sodium* 135 mmol/L (135-149)
[2023-07-01 07:21] LABS: Creatinine* 0.7 mg/dL (0.5-1.5); Est. Creatinine Clearance* 105.08; Estimated Glomerular Filt Rate 117 ml/min
[2023-07-01 07:22] LABS: Anion Gap 11 mEq/L (7-15); Blood Urea Nitrogen* 13 mg/dL (5-24); Calcium* 8.4 mg/dL (8.4-10.6); Carbon Dioxide* 24 mmol/L (20-32); Glucose* 67 mg/dL (60-115)
[2023-07-01 07:23] LABS: Slide Review Reflex No
[2023-07-01 07:25] LABS: C Reactive Protein* 5.5 mg/dL (0.5-1.0)
[2023-07-01 08:11] LABS: Vitamin B12* 833 pg/mL (243-894)
--- NOTE | 2023-07-01 08:46 | PM.GSPN ---
Subjective Subjective Date Seen: 07/01/23 Interval history: Patient was able to rest last night. Per mom he is feeling hungry. Patient is poor historian. Abdomen with some discomfort during examination, but patient reporting ?it's fine?. No fevers overnight. Has been tolerating water with no emesis. Exam Narrative: Exam Narrative: General: Alert and oriented, nontoxic. Lying comfortably in bed. Abdomen: Soft, some mild tenderness with deep palpation with no guarding or rebound. No peritonitis. Exam stable compared to yesterday. Const: Vital Signs, click to edit/add: Vital Signs - 24 hr 06/30/23 11:09 06/30/23 11:27 06/30/23 12:14 Temperature 99.1 F Pulse Rate [Right Pulse Oximeter] 102 H 80 Pulse Rate [Right Radial] Respiratory Rate 18 18 Blood Pressure [Ri ght Arm] Blood Pressure [Ri ght Upper Arm] 135/82 116/88 Pulse Oximetry 93 96 96 Oxygen Delivery Me thod Room Air 06/30/23 14:00 06/30/23 16:12 06/30/23 16:21 Temperature 97.4 F L Pulse Rate [Right Pulse Oximeter] 84 Pulse Rate [Right Radial] 85 Respiratory Rate 18 20 20 Blood Pressure [Ri ght Arm] 130/94 H Blood Pressure [Ri ght Upper Arm] 116/78 Pulse Oximetry 96 95 95 Oxygen Delivery Me thod Room Air Room Air Room Air 06/30/23 20:37 06/30/23 22:33 07/01/23 03:00 Temperature 98.9 F 99.2 F Pulse Rate [Right Pulse Oximeter] Pulse Rate [Right Radial] 90 108 H Respiratory Rate 20 20 18 Blood Pressure [Ri ght Arm] 119/77 125/68 Blood Pressure [Ri ght Upper Arm] Pulse Oximetry 93 90 Oxygen Delivery Me thod Room Air Room Air Labs/Imaging Labs Labs: WBC 5 Progress Note:A&P Assessment and plan (1) Duodenal ulcer: Status: Suspected Assessment and Plan: Patient hospital day 2 for contained duodenal perforation verses duodenal diverticulum. Noted inflammation of the antrum and duo likely secondary to peptic ulcer disease. He continues on a triple regiment for H pylori ( PPI 40 mg b.i.d. omeprazole/clarithromycin 500 mg b.i.d./amoxicillin 1000 mg b.i.d.). Would recommend continuing with clear liquids and plan for Gastrografin swallow study tomorrow prior to advancing diet. Will continue to follow patient, please call with any acute clinical changes, questions or concerns.
[2023-07-01] MEDS: AMOXICILLIN 250 MG CAPSULE 1000 MG PO ×2 (10:43→20:47)
[2023-07-01] MEDS: CLARITHROMYCIN 500 MG TABLET PO ×2 (10:44→20:47)
[2023-07-01] MEDS: OMEPRAZOLE 20 MG CAPSULE DR 40 MG PO ×2 (10:44→20:47)
--- NOTE | 2023-07-01 11:45 | PM.IMPN1 ---
Progress Note: A&P Assessment and plan (1) Nausea & vomiting: Problem details: Suspected to be due to duodenal ulcer. Clear liquids, antiemetics, empiric treatment of H pylori, holding Bismuth until after Gastrografin evaluation tomorrow. Status: Acute (2) Duodenal ulcer: Problem details: Lesion in the duodenum suspected to be the cause of his vomiting and possibly the right sided pain he is reporting. Empiric treatment for H pylori. Obtain upper GI eyes swallow evaluation with Gastrografin. Appreciate recommendations from Dr. Palacio. Status: Suspected (3) Chronic back pain: Problem details: Stop Celebrex pending evaluation of duodenal ulcer Status: Acute (4) Obstructive sleep apnea: Problem details: Pending outpatient sleep study Status: Suspected Plan 42-year-old male with down syndrome who has had recent nausea and vomiting and findings of probable duodenal ulcer with possible small contained perforation. He is in the hospital for treatment of this, treating for presumed H pylori, clear liquid diet, and planning a Gastrografin swallow evaluation tomorrow. Appreciate General surgery's recommendations. Subjective Time Seen by Provider: 09:23 Date Seen: 07/01/23 Interval history: Dwight's mother, Savanah, was in the room with him. Dwight says he feels fine. His mother says he will say that even when he is not feeling okay. I spoke with Dr. Palacio and the plan is to keep him on clear liquids today. Savanah notes this will be a challenge because Dwight is feeling hungry and is very picky about flavors; he normally just drinks water, no juice. Exam Narrative: Exam Narrative: General: No acute distress. Sleepy, arousable, oriented. Pleasant. No pallor. No jaundice. Oropharynx: Clear. Mucous membranes moist. Cardiovascular: Regular rate and rhythm. No murmurs, gallops, or rubs. Respiratory: Clear to auscultation bilaterally. No wheezes or crackles. Abdomen: Bowel sounds present. Soft, nondistended, mildly tender, no rebound tenderness or guarding. Extremities: No pedal edema. Const: Vital Signs, click to edit/add: Vital Signs - 24 hr 06/30/23 12:14 06/30/23 14:00 06/30/23 16:12 Temperature 97.4 F L Pulse Rate [Right Pulse Oximeter] 80 84 Pulse Rate [Right Radial] 85 Respiratory Rate 18 18 20 Blood Pressure [Ri ght Arm] 130/94 H Blood Pressure [Ri ght Upper Arm] 116/88 116/78 Pulse Oximetry 96 96 95 Oxygen Delivery Me thod Room Air Room Air 06/30/23 16:21 06/30/23 20:37 06/30/23 22:33 Temperature 98.9 F 99.2 F Pulse Rate [Right Pulse Oximeter] Pulse Rate [Right Radial] 90 108 H Respiratory Rate 20 20 20 Blood Pressure [Ri ght Arm] 119/77 125/68 Blood Pressure [Ri ght Upper Arm] Pulse Oximetry 95 93 90 Oxygen Delivery Me thod Room Air Room Air Room Air 07/01/23 03:00 07/01/23 10:56 07/01/23 10:58 Temperature 98.4 F Pulse Rate [Right Pulse Oximeter] Pulse Rate [Right Radial] 112 H 112 H Respiratory Rate 18 18 18 Blood Pressure [Ri ght Arm] 116/79 Blood Pressure [Ri ght Upper Arm] Pulse Oximetry 90 Oxygen Delivery Me thod Room Air Labs Labs: Laboratory Results - last 24 hr 06/30/23 06/30/23 06/30/23 11:42 12:02 16:28 WBC 8.19 RBC 3.87 L Hgb 12.1 L Hct 37.9 MCV 98 MCH 31 MCHC 32 RDW Coeff of [place] 15.3 Plt Count 340 Neut % (Auto) 74.0 H Lymph % (Auto) 19.4 L [place] % (Auto) 5.6 Eos % (Auto) 0.4 Baso % (Auto) 0.4 Neut # (Auto) 6.10 Lymph # (Auto) 1.60 Hudson # (Auto) 0.50 Eos # (Auto) 0.03 Baso # (Auto) 0.03 Abs Immat Gran (auto) 0.02 Imm/Tot Granulo (auto) 0.2 Sodium 136 Potassium 3.4 L Chloride 99 Carbon Dioxide 28 Anion Gap 9 BUN 14 Creatinine 0.7 Estimated Creat Clear Estimated GFR 117 Glucose 98 Lactate 1.1 Calcium 9.2 Iron 62 TIBC 300 % Saturation 21 Total Bilirubin 0.5 Direct Bilirubin 0.4 AST 25 ALT 16 Alkaline Phosphatase 73 Troponin I < 0.01 L C-Reactive Protein 4.9 H NT-Pro-B Natriuret Pep < 20 Total Protein 7.8 Albumin 4.1 Lipase 225 Vitamin B12 TSH 1.550 SARS-CoV-2 (PCR) Negative SARS-CoV-2 Influenza Type A (PCR) Negative PCR FLU A Influenza Type B (PCR) Negative PCR FLU B RSV (PCR) Negative PCR RSV 07/01/23 06:20 WBC 5.28 RBC 3.48 L Hgb 10.9 L Hct 34.6 L MCV 99 MCH 31 MCHC 32 RDW Coeff of [place] 15.3 Plt Count 297 Neut % (Auto) 62.0 Lymph % (Auto) 29.7 Hudson % (Auto) 6.4 Eos % (Auto) 0.9 Baso % (Auto) 0.6 Neut # (Auto) 3.27 Lymph # (Auto) 1.57 Hudson # (Auto) 0.30 Eos # (Auto) 0.05 Baso # (Auto) 0.03 Abs Immat Gran (auto) 0.02 Imm/Tot Granulo (auto) 0.4 Sodium 135 Potassium 3.4 L Chloride 100 Carbon Dioxide 24 Anion Gap 11 BUN 13 Creatinine 0.7 Estimated Creat Clear 105.08 Estimated GFR 117 Glucose 67 Lactate Calcium 8.4 Iron TIBC % Saturation Total Bilirubin Direct Bilirubin AST ALT Alkaline Phosphatase Troponin I C-Reactive Protein 5.5 H NT-Pro-B Natriuret Pep Total Protein Albumin Lipase Vitamin B12 833 TSH SARS-CoV-2 (PCR) Influenza Type A (PCR) Influenza Type B (PCR) RSV (PCR)
[2023-07-01] MEDS: SODIUM CHLORIDE 0.9 % (FLUSH) 10 ML SYRINGE 5 ML IVF ×2 (12:49→20:48)
--- NOTE | 2023-07-01 14:41 | REH.OT ---
OT: Attempted x2 and pt initially sleeping, then requested return to see. Will reschedule eval and clarify role of OT to aid in modifying set up, progression of activity level and safe d/c plan.
--- NOTE | 2023-07-01 20:02 | PC.NURSE ---
end of shift. he is alert date and place. Pt is still very pleasant and cooperative. let pt to sleep in, mom is here and is loving and caring. later dad was here. Afebrile. Denies pain. Up with SBA. SL is patent. Dr. Palacio was here to see. no nausea, he is on a clear liquid diet. need a stool sample. he is drinking and voiding.
[2023-07-01] MEDS: QUETIAPINE 100 MG TABLET 200 MG PO (20:47)
--- NOTE | 2023-07-02 06:06 | PC.NURSE ---
End of shift [id number] ? Pt alert, consistently oriented to self, and cooperative. Pt continent of bowel and bladder. Tolerating RA and clear liquid diet. Family at bedside and able to assist pt with communication and pt needs. Pt denied pain and nausea during shift. Pt observed to sleep during shift, appears to be resting comfortably.
[2023-07-02 07:00] VITALS: BP 116/80; PULSE 95; RESP 16; TEMP 36.6; O2SAT 98
[2023-07-02] MEDS: CLARITHROMYCIN 500 MG TABLET PO (08:57)
[2023-07-02] MEDS: AMOXICILLIN 250 MG CAPSULE 1000 MG PO (08:57)
[2023-07-02] MEDS: OMEPRAZOLE 20 MG CAPSULE DR 40 MG PO (08:58)
[2023-07-02] MEDS: SODIUM CHLORIDE 0.9 % (FLUSH) 10 ML SYRINGE 5 ML IVF (08:58)
[2023-07-02 11:00] VITALS: BP 115/96; PULSE 96; RESP 16; TEMP 36.7; O2SAT 93
[2023-07-02 11:05] VITALS: BMI 30.6
--- NOTE | 2023-07-02 11:08 | PM.IMPN1 ---
Progress Note: A&P Assessment and plan (1) Nausea & vomiting: Problem details: Suspected to be due to duodenal ulcer. Clear liquids, antiemetics, empiric treatment of H pylori, holding Bismuth until after Gastrografin evaluation complete. Status: Acute (2) Duodenal ulcer: Problem details: Lesion in the duodenum suspected to be the cause of his vomiting and possibly the right sided pain he is reporting. Empiric treatment for H pylori. Obtaining upper GI swallow evaluation with Gastrografin today. Appreciate recommendations from Dr. Palacio. Status: Suspected (3) Chronic back pain: Problem details: Stop Celebrex pending evaluation of duodenal ulcer Status: Acute (4) Obstructive sleep apnea: Problem details: Pending outpatient sleep study Status: Suspected Plan 42-year-old male with down syndrome who has had recent nausea and vomiting and findings of probable duodenal ulcer with possible small contained perforation. He is in the hospital for treatment of this, treating for presumed H pylori, clear liquid diet, and a Gastrografin swallow evaluation is in progress today. This will help determine further plan of care. Appreciate General surgery's recommendations. Subjective Time Seen by Provider: 07:44 Date Seen: 07/02/23 Interval history: Samuel is hungry. With encouragement from his dad, who is in the room with him today, he finished all the Gastrografin orally. Follow-through film are planned for today. Appreciate Dr. Palacio's recommendations. Exam Narrative: Exam Narrative: General: No acute distress. Sleepy, arousable, oriented. Pleasant. No pallor. No jaundice. Oropharynx: Clear. Mucous membranes moist. Cardiovascular: Regular rate and rhythm. No murmurs, gallops, or rubs. Respiratory: Clear to auscultation bilaterally. No wheezes or crackles. Abdomen: Bowel sounds present. Soft, nondistended, mildly tender, no rebound tenderness or guarding. Extremities: No pedal edema. Const: Vital Signs, click to edit/add: Vital Signs - 24 hr 07/01/23 16:32 07/01/23 16:51 07/01/23 19:00 Temperature 98.0 F 98.9 F Pulse Rate [Right Radial] 88 88 87 Respiratory Rate 18 18 20 Blood Pressure [Ri ght Arm] 123/72 112/80 Pulse Oximetry 92 92 Oxygen Delivery Me thod Room Air Room Air 07/01/23 23:00 07/02/23 07:00 Temperature 98.4 F 97.9 F Pulse Rate [Right Radial] 85 95 Respiratory Rate 16 16 Blood Pressure [Ri ght Arm] 109/71 116/80 Pulse Oximetry 93 98 Oxygen Delivery Me thod Room Air Room Air
--- NOTE | 2023-07-02 11:40 | XR_ITS ---
Patient: ENEDELIA KEENAN Facility:?[facility] Patient ID:?[id number] Site Patient ID:?[id number]. Site :?[id number] Study:?XRay-Abdomen 1 VIEW: DR. ESTRADA TO READ-07/02/2023 12:10:11 PM Ordering Physician:BRANDON Final Report: Indication: Weight loss, vomiting Technique: Abdomen 1 view, supine portable, post oral administration of water-soluble contrast. Comparison: CT 06/30/2023 Findings: There is no obstruction to the flow of contrast. Contrast is present throughout the small bowel and colon. There is a collection of contrast measuring 1.8 cm to the right of midline associated with the circumscribed collection on the recent CT scan. No extravasation of contrast beyond the margins of this collection. No free air. No pleural effusion. Impression: Contrast extends into the 1.8 cm circumscribed area arising from the duodenum, similar to the prior examination. Unfortunately, no comparison studies are available. A prior CT chest from 09/25/2021 does not include the relevant anatomy. The margins of this collection are circumscribed and most likely represent a duodenal diverticulum with superimposed duodenitis/peptic ulcer disease. However, EGD may ultimately be necessary for definitive exclusion of duodenal ulcer. Dictated by Juanjose Estrada MD @ 07/02/2023 12:19:26 PM Signed by:?Juanjose Estrada MD @07/02/2023 12:19:26 PM (Electronic Signature)
[2023-07-02 12:18] LABS: H pylori Ag Stool* Negative (Negative)
--- NOTE | 2023-07-02 12:59 | PC.NURSE ---
1030: Orders were placed by Dr Palacio for the patient to consume 2- 120ml bottles of 37% Gastrografin. The patient consumed 180ml of the Gastrografin @ 1045 AM. At 1145 Radiology was called up to the patients bedside to complete the imaging. I spoke with pharmacy and it is unable to be put in the [facility] due to it not being in their system. Carolyn LOUIS BSN
--- NOTE | 2023-07-02 13:01 | PM.GSPN ---
Subjective Subjective Date Seen: 07/02/23 Interval history: Patient is feeling very hungry today. No nausea or vomiting. He was able to tolerate drinking the contrast. He is now having diarrhea. Denies any abdominal pain. Exam Narrative: Exam Narrative: General: Alert and oriented, no acute distress Abdomen: Patient declined exam at this time with patient in the bathroom having diarrhea. Const: Vital Signs, click to edit/add: Vital Signs - 24 hr 07/01/23 16:32 07/01/23 16:51 07/01/23 19:00 Temperature 98.0 F 98.9 F Pulse Rate [Right Radial] 88 88 87 Respiratory Rate 18 18 20 Blood Pressure [Ri ght Arm] 123/72 112/80 Pulse Oximetry 92 92 Oxygen Delivery Me thod Room Air Room Air 07/01/23 23:00 07/02/23 07:00 07/02/23 11:00 Temperature 98.4 F 97.9 F 98.1 F Pulse Rate [Right Radial] 85 95 96 Respiratory Rate 16 16 16 Blood Pressure [Ri ght Arm] 109/71 116/80 115/96 H Pulse Oximetry 93 98 93 Oxygen Delivery Me thod Room Air Room Air Room Air Labs/Imaging Labs Labs: No leukocytosis, labs within normal limits. Imaging Imaging: Abdominal x-ray obtained, evidence duodenal diverticulum. No evidence of contrast extravasation and no concern for perforation. Progress Note:A&P Assessment and plan (1) Duodenal ulcer: Status: Suspected Assessment and Plan: Patient hospital day 3 for peptic ulcer disease and duodenal diverticulum. No concern at this time for perforation with contrast study demonstrating presence of diverticulum, no contrast extravasation. Agree with continuing on omeprazole and H pylori treatment. A stool sample was obtained with results pending to confirm diagnosis. Okay to advance diet as tolerated. Would recommend an upper endoscopy as an outpatient in 6-8 weeks for further evaluation. Surgery to sign off, please call with any acute clinical changes, questions or concerns.
[2023-07-02 15:00] VITALS: BP 111/75; PULSE 89; RESP 14; TEMP 36.7; O2SAT 95
--- NOTE | 2023-07-02 15:53 | PM.DS1 ---
DS: Providers Provider Date Seen: 07/02/23 Date of admission: 06/30/23 16:06 Primary care physician: Carrie Pena MD Admitting Clinician: Herber El MD Consults: General surgery Dr. Palacio Attending Physician on discharge: Herber El MD Date of Discharge: 07/02/23 DS: Diagnosis Discharge Diagnosis (1) Duodenal ulcer: Status: Suspected Problem details: Lesion in the duodenum suspected to be the cause of his vomiting and possibly the right sided pain he is reporting. Empiric treatment for H pylori with PPI, clarithromycin, amoxicillin. Upper GI x-ray shows no perforation. Does show diverticulum and possible duodenal ulcer. Recommend EGD in 6-8 weeks, end july or beginning of August 2023 (2) Nausea & vomiting: Status: Acute Problem details: Suspected to be due to duodenal ulcer. Clear liquids, antiemetics, empiric treatment of H pylori, (3) Abdominal pain: Status: Acute Problem details: Due to duodenal ulcer. Improved. Appetite also improved (4) Chronic back pain: Status: Acute Problem details: Stop Celebrex pending evaluation of duodenal ulcer (5) Obstructive sleep apnea: Status: Suspected Problem details: Pending outpatient sleep study DS: Summary Hospital Course Hospital Course: Dwight Hatch is a 42 year old male with down syndrome, frontal temporal dementia, history of celiac disease and arthritis admitted to the hospital with intractable vomiting. Patient is seen with his Marge ROBBINS with additional information obtained from the medical record. Patient was hospitalized here at the beginning of April with pneumonia, suspected to be aspiration pneumonia. He was seen in clinic on May 04 for follow-up of that pneumonia as well as follow-up with suspected obstructive sleep apnea and swallowing difficulties and arthritis in his back with radiculopathy. He was started on Celebrex 200 mg twice daily and referred for sleep study. Since the beginning of May about 6 weeks ago he has had a general decline with poor appetite, nausea and vomiting and occasional complaints of right chest or flank pain. He has lost weight. His weight on May 04 was 88.6 kg. In the last couple days he has had almost nothing to eat or drink and what he has swallowed has been followed by vomiting. He has not urinated in the last 24 hours. He has also been more constipated recently. History are not indicates a history of celiac disease. Details of this are uncertain. Previous surgeries include recurrent repair of a umbilical hernia x3. Patient was treated empirically for duodenal ulcer with PPI and for H pylori with amoxicillin and clarithromycin. He was feeling better and eating quite well. He underwent upper GI x-ray which showed probable duodenal ulcer and duodenal diverticulum. Recommend outpatient EGD in 6-8 weeks. Status at Discharge Functional status at discharge: uses cane/walker Overall status at discharge: patient is progressing back to baseline Time Spent with Patient Time attestation: Total time spent providing and/or coordinating discharge services: Time spent: Greater than 30 minutes Exam Narrative: Exam Narrative: Alert and in no distress. Pleasant. Walking around his room. Const: Vital Signs, click to edit/add: Vital Signs - 24 hr 07/01/23 16:32 07/01/23 16:51 07/01/23 19:00 Temperature 98.0 F 98.9 F Pulse Rate [Right Radial] 88 88 87 Respiratory Rate 18 18 20 Blood Pressure [Ri ght Arm] 123/72 112/80 Pulse Oximetry 92 92 Oxygen Delivery Me thod Room Air Room Air 07/01/23 23:00 07/02/23 07:00 07/02/23 11:00 Temperature 98.4 F 97.9 F 98.1 F Pulse Rate [Right Radial] 85 95 96 Respiratory Rate 16 16 16 Blood Pressure [Ri ght Arm] 109/71 116/80 115/96 H Pulse Oximetry 93 98 93 Oxygen Delivery Me thod Room Air Room Air Room Air Documenting provider has reviewed patient's vital signs: yes DS: Data Data Completed and Pending Completed studies during hospitalization: Procedures Introduction of Other Therapeutic Substance into Respiratory Tract, Via Natural or Artificial Opening (04/18/23) Labs on day of discharge: Labs from last 24 hours 07/02/23 11:42 Stool H. pylori Ag Negative Imaging Abdominal x-ray: Radiologist's impression: Study:?XRay-Abdomen 1 VIEW: DR. ESTRADA TO READ-07/02/2023 12:10:11 PM Ordering Physician:BRANDON Final Report: Indication: Weight loss, vomiting Technique: Abdomen 1 view, supine portable, post oral administration of water-soluble contrast. Comparison: CT 06/30/2023 Findings: There is no obstruction to the flow of contrast. Contrast is present throughout the small bowel and colon. There is a collection of contrast measuring 1.8 cm to the right of midline associated with the circumscribed collection on the recent CT scan. No extravasation of contrast beyond the margins of this collection. No free air. No pleural effusion. Impression: Contrast extends into the 1.8 cm circumscribed area arising from the duodenum, similar to the prior examination. Unfortunately, no comparison studies are available. A prior CT chest from 09/25/2021 does not include the relevant anatomy. The margins of this collection are circumscribed and most likely represent a duodenal diverticulum with superimposed duodenitis/peptic ulcer disease. However, EGD may ultimately be necessary for definitive exclusion of duodenal ulcer. Dictated by Juanjose Estrada MD @ 07/02/2023 12:19:26 PM Discharge Plan Discharge Disposition: Home w/ Parent or Adult Date of Admission: 06/30/23 16:06 Attending Provider on Discharge: Herber El Consulting Providers: Liliya Palacio Primary Care Provider: Carrie Pena Anticipated Discharge Date/Time: 07/02/23 16:05 Discharge Medications: New clarithromycin 500 mg Tablet 500 mg PO BID Qty: 20 0RF omeprazole 20 mg Capsule,Delayed Release(Dr/Ec) 20 mg PO BID Qty: 60 2RF amoxicillin 500 mg capsule 1,000 mg PO BID Qty: 40 0RF Continued albuterol sulfate 90 mcg/actuation HFA aerosol inhaler 2 puff inhalation Q4-6H PRN (Reason: shortness of breath or wheezing) Qty: 6.7 0RF quetiapine 100 mg tablet 100 - 200 mg PO HS fluvoxamine 100 mg tablet 100 mg PO BID One A Day Men Complete 240-25-300 mcg tablet 1 tab PO DAILY lorazepam 1 mg tablet 1 mg PO TID PRN (Reason: anxiety) Discontinued celecoxib 200 mg capsule 200 mg PO BID Discharge Orders: Discharge Order (Routine); Ordered 07/02/23 Ordered By: Herber El Additional Instructions: EGD 6-8 weeks for PUD. Activity Level: Activity as Tolerated Discharge Diet: Regular Follow Up Appointments: Carrie Pena MD [Primary Care Provider] - Forms: [employer] Info Instructions
--- NOTE | 2023-07-02 17:19 | PC.NURSE ---
Discharge Note: The patient discharged home with his father this afternoon. All discharge information regarding follow up, diet recommendations were reviewed with the patients father. No N/V after diet was advanced this afternoon. Although frequent loose stools due to Gastrografin. Discharge paper work was provided. Carolyn LOUIS BSN
--- NOTE | 2023-07-02 17:34 | PC.NURSE ---
Follow up post discharge-- Spoke with pharmacist Horace at [facility] who asked provider to reconsider the script for Clarithromycin because the combination of Seroquel and Clarithromycin may cause a harmful reaction. Spoke with Dr. El who asked to decrease patient's dose of Seroquel by half at bedtime from 200mg to 100mg at HS. Pharmacist was notified and stated that patient's family has been notified as well.
--- NOTE | 2023-07-02 18:48 | REH.OT ---
OT: Met with patient and patient's father/caregiver who reports family has modified ADL set up to meet pt's needs, declines need for OT in hospital for ADLs and no additional AE needs in the hospital were identified. Pt repositioning self in bed with father providing cues. Pt's father had questions about positioning in pt's recliner for home and limited core strength and he reports they have SIZE WORKER 40 hours/week who can assist with HEP, they have [employer] he has used in the past. Recommended they consider follow up with PCP for OP PT for pt/caregiver ed in HEP and he reports they will consider.
== END 2023-07-02 17:15 | disposition home or self-care (01) | DRG 384 ==
LOC: ED 15:02 → MEDSURG 16:07
PROVIDERS: Admitting Provider Family Medicine; Emergency Provider Family Medicine; PCP Family Medicine; Visit Provider Family Medicine
DX: K26.3 Acute duodenal ulcer without hemorrhage or perforation (principal); Z87.01 Personal history of pneumonia (recurrent); F32.9 Major depressive disorder, single episode, unspecified; F42.9 Obsessive-compulsive disorder, unspecified; K90.0 Celiac disease; Q90.9 Down syndrome, unspecified; G89.29 Other chronic pain; M54.9 Dorsalgia, unspecified; R11.2 Nausea with vomiting, unspecified; G31.09 Other frontotemporal neurocognitive disorder; F02.80 Dementia in other diseases classified elsewhere, unspecified severity, without behavioral disturbance, psychotic disturbance, mood disturbance, and anxiety; G47.33 Obstructive sleep apnea (adult) (pediatric); K57.10 Diverticulosis of small intestine without perforation or abscess without bleeding
CPT/HCPCS: 36415; 71260; 74018; 74177; 80048; 80053; 82248; 82607; 83540; 83550; 83605; 83690; 83880; 84443; 84484; 85025; 86140; 87338; 87631; 93005; 94761; 97116; 97161; 97530; 99285; A9270; C9113; J2405; J7030; Q9963; Q9967

== ENCOUNTER 2023-08-27 12:07 | Outpatient (CLI) | payer MEDICARE, MEDICAID, SELFPAY ==
--- NOTE | 2023-08-27 13:08 | W.ANESCHARGE ---
Anesthesia Charges Start Date/Time Anesthesia Start Date: 08/27/23 Anesthesia Start Time: 14:00 Stop Date/Time Anesthesia Stop Date: 08/27/23 Anesthesia Stop Time: 14:25
--- NOTE | 2023-08-27 14:26 | W.ANESCHARGE ---
Anesthesia Charges Start Date/Time Anesthesia Start Date: 08/27/23 Anesthesia Start Time: 14:00 Stop Date/Time Anesthesia Stop Date: 08/27/23 Anesthesia Stop Time: 14:25
== END 2023-08-27 12:08 | disposition home or self-care (01) ==
LOC: OP CLINIC 12:08
PROVIDERS: PCP Family Medicine; Visit Provider Internal Medicine Gastroenterology
DX: K90.0 Celiac disease (principal); K22.70 Barrett's esophagus without dysplasia; K26.9 Duodenal ulcer, unspecified as acute or chronic, without hemorrhage or perforation; K31.89 Other diseases of stomach and duodenum; K31.7 Polyp of stomach and duodenum; K26.3 Acute duodenal ulcer without hemorrhage or perforation
CPT/HCPCS: 00731; 43239; 88305; 88342; J2704; J3490

== ENCOUNTER 2023-12-15 10:25 | Emergency (ER) | payer MEDICARE, MEDICAID, SELFPAY ==
[2023-12-15 10:30] VITALS: BP 99/80; PULSE 105; RESP 24; TEMP 36.8; O2SAT 92
--- NOTE | 2023-12-15 10:52 | CRLHL7_ITS ---
For Patients: As a result of the Cures Act, medical imaging exams and procedure reports are released immediately into your electronic medical record. You may view this report before your referring provider. If you have questions, please contact your health care provider. INDICATION: Pneumonia. COMPARISON: Chest x-ray dated 13 December 2023. FINDINGS: PA and lateral chest x-rays show a normal cardiac silhouette. The lungs show faint patchy airspace opacities bilaterally are not significantly changed. Sharp pleural margins. No pneumothorax. IMPRESSION: 1. Faint patchy airspace opacities in the lungs are not significantly changed. Dictated by Vinicio Lane MD @ 12/15/2023 11:59:04 AM (Electronically Signed)
--- NOTE | 2023-12-15 10:53 | ED_ITS ---
HPI - SOB/Dyspnea General Chief Complaint: Shortness of Breath/Dyspnea Stated Complaint: oxygen level is 87, on antibiotics Time Seen by Provider: 12/15/23 10:42 History of Present Illness HPI Narrative: This 43-year-old male has Down syndrome and comes in with a caregiver for recheck after a diagnosis of pneumonia that occurred at urgent care 2 days ago. At that time he had an x-ray and is started on doxycycline. The patient's caregiver states that he has a history of recurrent pneumonia and his problem list does indicate aspiration pneumonia. He is in today because his oximetry was low with exertion. He arrives here with oximetry ranging from 90-94% at rest. His heart rate is borderline tachycardia at around 100 beats per minute. He is not using accessory muscles for breathing. Related Data Home Medications ?Medication ?Instructions ?Recorded ?Confirmed lorazepam 1 mg tablet 1 mg PO TID PRN anxiety 04/17/23 12/13/23 multivit,calcium,min-folic acid 1 tab PO DAILY 04/17/23 12/13/23 240 mcg-D3 25 mcg-lycop 300 mcg tablet (One A Day Men Complete) fluvoxamine 100 mg tablet 100 mg PO BID 06/30/23 12/13/23 quetiapine 100 mg tablet 100 - 200 mg PO HS 06/30/23 12/13/23 albuterol sulfate 2.5 mg/3 mL 2.5 mg continuous nebulization Q4H 12/13/23 12/13/23 (0.083 %) solution for nebulization PRN cough montelukast 10 mg tablet 10 mg PO DAILY 12/13/23 12/13/23 Previous Rx's ?Medication ?Instructions ?Recorded albuterol sulfate 90 mcg/actuation 2 puff inhalation Q4-6H PRN 06/05/23 aerosol inhaler shortness of breath or wheezing #6.7 grams omeprazole 20 mg capsule,delayed 20 mg PO BID #60 caps 07/02/23 release cefdinir 300 mg capsule 600 mg (2 x 300 mg) PO QDAY 7 days 12/13/23 #14 caps doxycycline hyclate 100 mg tablet 100 mg PO BID 7 days #14 tabs 12/13/23 ipratropium 0.5 mg-albuterol 3 mg 3 ml inhalation Q4H PRN shortness 12/13/23 (2.5 mg base)/3 mL nebulization of breath or wheezing #90 mL soln Allergies Allergy/AdvReac Type Severity Reaction Status Date / Time gluten Allergy Verified 12/13/23 17:15 Review of Systems Status of ROS: Reports: unobtainable due to mental status [facility] Medical History (Updated 12/15/23 @ 12:21 by Asaf Christian MD) Duodenal ulcer ?K26.9 - Duodenal ulcer, unspecified as acute or chronic, without hemorrhage or perforation (ICD-10) Obstructive sleep apnea ?G47.33 - Obstructive sleep apnea (adult) (pediatric) (ICD-10) Chronic back pain ?M54.9 - Dorsalgia, unspecified (ICD-10) ?G89.29 - Other chronic pain (ICD-10) Aspiration pneumonitis ?J69.0 - Pneumonitis due to inhalation of food and vomit (ICD-10) Pneumonia ?J18.9 - Pneumonia, unspecified organism (ICD-10) History of aspiration pneumonia ?Z87.01 - Personal history of pneumonia (recurrent) (ICD-10) Major depressive disorder ?F32.9 - Major depressive disorder, single episode, unspecified (ICD-10) Obsessive compulsive disorder ?F42.9 - Obsessive-compulsive disorder, unspecified (ICD-10) Celiac disease ?K90.0 - Celiac disease (ICD-10) Down syndrome ?Q90.9 - Down syndrome, unspecified (ICD-10) Cough ?R05.9 - Cough, unspecified (ICD-10) Surgical History H/O umbilical hernia repair ?Z98.890 - Other specified postprocedural states (ICD-10) ?Z87.19 - Personal history of other diseases of the digestive system (ICD-10) History of tympanoplasty ?Z98.890 - Other specified postprocedural states (ICD-10) Family History Maternal Grandfather Leukemia Maternal Grandmother Colon cancer Social History (Updated 06/30/23 @ 16:11 by Herber El MD) Narrative: He lives with his parents and there is a certified personal finance counselor, Marge, who is with him 40 hours a week. He does not smoke or drink alcohol. What is your current living situation?: I presently have a place to live Problems where you live: no known problems Problems where you live details: none In the past 12 months, utilities in danger of being shut off: no In past 12 months, lack of transportation kept you from medical appts, meetings, work, or getting things needed for daily living: no In the past 12 mos, have been you worried that your food would run out before you had money to buy more?: never true In the past 12 mos, the food you bought just didn't last and you didn't have money to buy more?: never true Highest level of school completed/degree received: some college, no degree Smoking Status: Never smoker How often do you have a drink containing alcohol: never AUDIT-C Alcohol total score: 0 Non-prescribed substance use: denies use Caffeine: No How often does anyone, including family, friends and others, physically hurt you : never How often does anyone, including family, friends and others, insult or talk down to you: never How often does anyone, including family, friends and others, threaten you with harm: never How often does anyone, including family, friends and others, scream or curse at you: never service: No Exam Narrative: Exam Narrative: Constitutional: Well-developed, well-nourished, no acute distress. HEENT: Normocephalic, atraumatic. Neck: Normal range of motion. Nontender. Supple. Heart: Regular. No murmurs. Normal rate. Intact distal pulses. Lungs: Bilateral upper airway rhonchi. No chest discomfort. No wheezes. Abdomen: Normal bowel sounds. Nontender. No rebound tenderness. Genitalia: Deferred. Back: No midline tenderness. Normal range of motion. Extremities: Normal range of motion. No injury. Skin: Intact. No rash. Warm. No erythema or pallor. Neurologic: No altered sensation. No weakness. Alert and oriented. Psychiatric: No suicidality. No anxiety or depression. No insomnia. Nursing notes and vitals signs are reviewed. Const: Vital Signs, click to edit/add: Vital Signs - 24 hr 12/15/23 10:30 Temperature 98.2 F Pulse Rate [Pulse Oximeter] 105 H Respiratory Rate 24 Blood Pressure [Ri ght Upper Arm] 99/80 Pulse Oximetry 92 Oxygen Delivery Me thod Room Air Course Vital Signs Vital signs: Initial Vital Signs Temperature 98.2 F 12/15/23 10:30 Temperature Source Temporal Artery Scan 12/15/23 10:30 Pulse Rate 105 H 12/15/23 10:30 Respiratory Rate 24 12/15/23 10:30 Blood Pressure 99/80 12/15/23 10:30 Blood Pressure Mean 86 12/15/23 10:30 Blood Pressure Position Supine 12/15/23 10:30 Pulse Oximetry 92 12/15/23 10:30 Oxygen Delivery Method Room Air 12/15/23 10:30 Vital Signs Temperature 98.2 F 12/15/23 10:30 Pulse Rate 105 H 12/15/23 10:30 Respiratory Rate 24 12/15/23 10:30 Blood Pressure 99/80 12/15/23 10:30 Pulse Oximetry 92 12/15/23 10:30 Oxygen Delivery Method Room Air 12/15/23 10:30 Temperature 98.2 F 12/15/23 10:30 Pulse Rate 105 H 12/15/23 10:30 Respiratory Rate 24 12/15/23 10:30 Blood Pressure 99/80 12/15/23 10:30 Pulse Oximetry 92 12/15/23 10:30 Oxygen Delivery Method Room Air 12/15/23 10:30 Medications Administered Medications: Discontinued Medications Generic Name Dose Route Start Last Admin Trade Name Rosana PRN Reason Stop Dose Admin Dexamethasone 10 mg 12/15/23 10:52 12/15/23 11:11 Dexamethasone 10 Mg/Ml Inj PO 12/15/23 10:53 10 mg ONCE ONE Administration MDM - SOB/Dyspnea MDM Narrative Medical decision making narrative: This patient comes in for recheck after a diagnosis of pneumonia. There was concern that he was hypoxic. The patient is maintaining oximetry at around 92- 94% while at rest. He is not using accessory muscles for breathing. The patient is taking doxycycline and does have the albuterol inhaler that can be used as needed. He did receive an oral dose of dexamethasone 10 mg. A repeat x-ray is obtained and shows no new findings or worsening symptoms of pneumonia. Imaging Data Chest x-ray: Radiologist's impression: 1. Faint patchy airspace opacities in the lungs are not significantly changed. Discharge Plan Discharge Clinical Impression: Pneumonia Patient Disposition: Home w/ Parent or Adult Condition: Stable Additional Instructions: Continue current medications as prescribed. Follow up with MD or return if symptoms are worsening. Prescriptions: No Action albuterol sulfate 90 mcg/actuation HFA aerosol inhaler 2 puff inhalation Q4-6H PRN (Reason: shortness of breath or wheezing) Qty: 6.7 0RF albuterol sulfate 2.5 mg /3 mL (0.083 %) solution for nebulization 2.5 mg continuous nebulization Q4H PRN (Reason: cough) montelukast 10 mg tablet 10 mg PO DAILY ipratropium-albuterol 0.5 mg-3 mg(2.5 mg base)/3 mL solution for nebulization 3 ml inhalation Q4H PRN (Reason: shortness of breath or wheezing) Qty: 90 0RF cefdinir 300 mg capsule 600 mg PO QDAY 7 Days Qty: 14 0RF Rx Instructions: OK to do 300mg every 12 hours if GI side effects occur. doxycycline hyclate 100 mg tablet 100 mg PO BID 7 Days Qty: 14 0RF quetiapine 100 mg tablet 100 - 200 mg PO HS fluvoxamine 100 mg tablet 100 mg PO BID omeprazole 20 mg Capsule,Delayed Release(Dr/Ec) 20 mg PO BID Qty: 60 2RF One A Day Men Complete 240-25-300 mcg tablet 1 tab PO DAILY lorazepam 1 mg tablet 1 mg PO TID PRN (Reason: anxiety) Follow Up/Referrals: Carrie Pena MD [Primary Care Provider] - Stand Alone Forms: Tracka[employer] Info Instructions
[2023-12-15] MEDS: dexAMETHasone 10 MG/ML inj PO (11:11)
--- NOTE | 2023-12-15 11:45 | RESP.RT ---
Pt seen in ED per RN request. Pt with coarse insp and expiratory Rhonchi, more prominent in the RUL. PT with coughing on demand and coaching. Chest CPT done in 2 positions for 10 minutes total to RUL. Followed up with [facility] for 20 breaths, with excellent spontaneous coughing during treatment. Instructed caregiver on use for at home.
[2023-12-15 12:28] VITALS: PULSE 89; O2SAT 91
== END 2023-12-15 12:29 | disposition home or self-care (01) ==
PROVIDERS: Emergency Provider Emergency Medicine Emergency Medical Services; PCP Family Medicine
DX: J18.9 Pneumonia, unspecified organism (principal)
CPT/HCPCS: 71046; 99284; J1100

== ENCOUNTER 2023-12-31 12:00 | Inpatient (IN) | payer MEDICARE, MEDICAID, SELFPAY ==
[2023-12-31] VITALS (9 sets, daily range): BP systolic 107–133; BP diastolic 62–87; PULSE 75–113; RESP 20–22; TEMP 36.4–36.9; O2SAT 85–100; BMI 353.9; BMI 35.5
--- NOTE | 2023-12-31 12:33 | CRLHL7_ITS ---
For Patients: As a result of the Century Cures Act, medical imaging exams and procedure reports are released immediately into your electronic medical record. You may view this report before your referring provider. If you have questions, please contact your health care provider. Indication: Shortness of breath Technique: Chest 2 views Comparison: Chest x-ray 12/15/2023 Findings/Impression: Cardiovascular and mediastinum: Heart size and vasculature are normal in caliber and appearance. Mediastinum is within normal limits. Lungs and pleural spaces: No pleural effusion or pneumothorax. Patchy opacities are identified within the lungs. These have somewhat changed in distribution with interval improvement within the left lung compared to the prior exam, however opacities within the right perihilar region and right upper lobe are worsened compared to the prior exam. Bones and soft tissues: Old right 6th rib fracture. Straightening of the thoracic spine. Dictated by Baldemar Matos MD @ 12/31/2023 1:48:17 PM (Electronically Signed)
--- NOTE | 2023-12-31 13:11 | ED.SOB ---
HPI - SOB/Dyspnea General Date Seen: 12/31/23 Chief Complaint: Shortness of Breath/Dyspnea Stated Complaint: +Covid, pneumonia, low O2 Time Seen by Provider: 12/31/23 12:23 Source: patient and family Mode of arrival: ambulatory Limitations: no limitations History of Present Illness HPI Narrative: 43-year-old gentleman with Down syndrome presents here from home history of COVID for the last 4 days, that he took his saturations today, and he was between 70 and 80% on room air, he appeared to be slightly short of breath, he has been coughing. Does have a history of pneumonias, and just recently finished a prescription for antibiotics, and also history of aspiration pneumonias. The whole house is positive for COVID, and they tested him at home. He is brought in by his risk management manager, they tell me there is no history of heart issues as far as they know. Denies a history of blood clots. Denies a history of chest pain, he has had no fevers at home, no vomiting, nausea, there was a choking episode approximately 5 days ago Recently was tested for sleep apnea but they have not received the testing results yet. MD elicited complaint: shortness of breath Context: recent illness Treatment prior to arrival: none Related Data Home oxygen amount: none Home Medications ?Medication ?Instructions ?Recorded ?Confirmed lorazepam 1 mg tablet 1 mg PO TID PRN anxiety 04/17/23 12/31/23 multivit,calcium,min-folic acid 1 tab PO DAILY 04/17/23 12/31/23 240 mcg-D3 25 mcg-lycop 300 mcg tablet (One A Day Men Complete) fluvoxamine 100 mg tablet 100 mg PO BID 06/30/23 12/31/23 quetiapine 100 mg tablet 100 - 200 mg PO HS 06/30/23 12/31/23 albuterol sulfate 2.5 mg/3 mL 2.5 mg continuous nebulization Q4H 12/13/23 12/31/23 (0.083 %) solution for nebulization PRN cough montelukast 10 mg tablet 10 mg PO DAILY 12/13/23 12/31/23 Previous Rx's ?Medication ?Instructions ?Recorded albuterol sulfate 90 mcg/actuation 2 puff inhalation Q4-6H PRN 06/05/23 aerosol inhaler shortness of breath or wheezing #6.7 grams omeprazole 20 mg capsule,delayed 20 mg PO BID #60 caps 07/02/23 release ipratropium 0.5 mg-albuterol 3 mg 3 ml inhalation Q4H PRN shortness 12/13/23 (2.5 mg base)/3 mL nebulization of breath or wheezing #90 mL soln Allergies Allergy/AdvReac Type Severity Reaction Status Date / Time gluten Allergy Verified 12/31/23 12:12 Review of Systems Status of ROS: Reports: 10 or more systems reviewed and unremarkable except as noted in History and below [facility] Medical History Duodenal ulcer ?K26.9 - Duodenal ulcer, unspecified as acute or chronic, without hemorrhage or perforation (ICD-10) Obstructive sleep apnea ?G47.33 - Obstructive sleep apnea (adult) (pediatric) (ICD-10) Chronic back pain ?M54.9 - Dorsalgia, unspecified (ICD-10) ?G89.29 - Other chronic pain (ICD-10) Aspiration pneumonitis ?J69.0 - Pneumonitis due to inhalation of food and vomit (ICD-10) Pneumonia ?J18.9 - Pneumonia, unspecified organism (ICD-10) History of aspiration pneumonia ?Z87.01 - Personal history of pneumonia (recurrent) (ICD-10) Major depressive disorder ?F32.9 - Major depressive disorder, single episode, unspecified (ICD-10) Obsessive compulsive disorder ?F42.9 - Obsessive-compulsive disorder, unspecified (ICD-10) Celiac disease ?K90.0 - Celiac disease (ICD-10) Down syndrome ?Q90.9 - Down syndrome, unspecified (ICD-10) Cough ?R05.9 - Cough, unspecified (ICD-10) Surgical History H/O umbilical hernia repair ?Z98.890 - Other specified postprocedural states (ICD-10) ?Z87.19 - Personal history of other diseases of the digestive system (ICD-10) History of tympanoplasty ?Z98.890 - Other specified postprocedural states (ICD-10) Family History Maternal Grandfather Leukemia Maternal Grandmother Colon cancer Social History Narrative: He lives with his parents and there is a representative personal service, Marge, who is with him 40 hours a week. He does not smoke or drink alcohol. What is your current living situation?: I presently have a place to live Problems where you live: no known problems Problems where you live details: none In the past 12 months, utilities in danger of being shut off: no In past 12 months, lack of transportation kept you from medical appts, meetings, work, or getting things needed for daily living: no In the past 12 mos, have been you worried that your food would run out before you had money to buy more?: never true In the past 12 mos, the food you bought just didn't last and you didn't have money to buy more?: never true Highest level of school completed/degree received: some college, no degree Smoking Status: Never smoker How often do you have a drink containing alcohol: never AUDIT-C Alcohol total score: 0 Non-prescribed substance use: denies use Caffeine: No How often does anyone, including family, friends and others, physically hurt you: never How often does anyone, including family, friends and others, insult or talk down to you: never How often does anyone, including family, friends and others, threaten you with harm: never How often does anyone, including family, friends and others, scream or curse at you: never service: No Exam Narrative: Exam Narrative: I some the triage room because we were busy. He is wearing a mask, he is speaking to me normally, normal Down syndrome Facies is noted. Speaking to me normally, GCS is 15/15. Pupils equal round reactive to light his TMs normal his oropharynx is normal, is neck is supple, coarse rhonchi is noted bilaterally left slightly greater than right. No signs respiratory distress heart sounds no clicks murmurs or gallops are noted, his abdomen is soft and obese, there is no guarding no organomegaly, skin reveals no petechiae rashes he moves all extremities independently well negative Homans sign bilaterally, normal pulses distally. Any new neurologically is intact moving his upper lower extremities normally with normal proximal distal power. He is on oxygen 6 L, now satting at 94% on OxyMask I do not hear any wheezes Const: Vital Signs, click to edit/add: Vital Signs - 24 hr 12/31/23 12:05 12/31/23 12:25 12/31/23 12:26 Temperature 97.8 F Pulse Rate [Pulse Oximeter] 113 H Respiratory Rate 20 Blood Pressure [Ri ght Upper Arm] 125/62 Pulse Oximetry 85 L 94 95 Oxygen Delivery Me thod Room Air OxyMask OxyMask Oxygen Flow Rate 6 6 Documenting provider has reviewed patient's vital signs: yes Course Course ED Course: Differential diagnosis include a viral upper respiratory illness, histoplasmosis, tuberculosis, pneumonia, COPD exacerbation, emphysema, strep throat illness, bronchitis, asthma, reactive airway disease, chronic cough, medication side effects, allergic rhinitis with postnasal drip, foreign body aspiration, aspiration pneumonia, bronchiolitis, and gastroesophageal reflux disease as well as multiple other considerations. I think this is a combination of things for him, with the COVID, along with a history of previous aspiration pneumonias. He had clearly is hypoxic here, and will need admission. We will start with a chest x-ray and laboratory testing go from there. Reevaluation(s) Time of Reevaluation #1: 15:18 Reevaluation #1: Patient remains stable on 5 L of oxygen, saturations 95%, his chest x-ray did show that he has a right sided hilar and right upper lobe pneumonia, possibly consistent with aspiration, I also possibility of COVID pneumonia. Given his hypoxia, and his elevated D-dimer recommendation is also for a chest CT a. We will go ahead and get that, he is accepted for admission, and received 2 doses Zosyn, I spoke to Vital Signs Vital signs: Initial Vital Signs Temperature 97.8 F 12/31/23 12:05 Temperature Source Temporal Artery Scan 12/31/23 12:05 Pulse Rate 113 H 12/31/23 12:05 Respiratory Rate 20 12/31/23 12:05 Blood Pressure 125/62 12/31/23 12:05 Blood Pressure Mean 83 12/31/23 12:05 Blood Pressure Position Sitting 12/31/23 12:05 Pulse Oximetry 85 L 12/31/23 12:05 Oxygen Delivery Method Room Air 12/31/23 12:05 Vital Signs Temperature 97.8 F 12/31/23 12:05 Pulse Rate 113 H 12/31/23 12:05 Respiratory Rate 20 12/31/23 12:05 Blood Pressure 125/62 12/31/23 12:05 Pulse Oximetry 85 L 12/31/23 12:05 Oxygen Delivery Method Room Air 12/31/23 12:05 Temperature 97.8 F 12/31/23 12:05 Pulse Rate 113 H 12/31/23 12:05 Respiratory Rate 20 12/31/23 12:05 Blood Pressure 125/62 12/31/23 12:05 Pulse Oximetry 95 12/31/23 12:26 Oxygen Delivery Method OxyMask 12/31/23 12:26 Oxygen Flow Rate 6 12/31/23 12:26 Medications Administered Medications: Discontinued Medications Generic Name Dose Route Start Last Admin Trade Name Freq PRN Reason Stop Dose Admin Piperacillin Sod/Tazobactam 100 mls @ 200 mls/hr 12/31/23 14:02 12/31/23 14:59 Sod 3.375 gm/ Sodium Chloride IVPB 12/31/23 14:03 Infused ONCE ONE Infusion MDM - SOB/Dyspnea MDM Narrative Medical decision making narrative: Differential diagnosis include a viral upper respiratory illness, histoplasmosis, tuberculosis, pneumonia, COPD exacerbation, emphysema, strep throat illness, bronchitis, asthma, reactive airway disease, chronic cough, medication side effects, allergic rhinitis with postnasal drip, foreign body aspiration, aspiration pneumonia, bronchiolitis, and gastroesophageal reflux disease as well as multiple other considerations. Medical Records Attestation: I reviewed the patient's medical records. Lab Data Attestation: I reviewed the patient's lab results. Labs: Lab Results 12/31/23 12/31/23 Range/Units 12:33 13:39 WBC 11.38 H (4.50-11.00) K/uL RBC 3.69 L (4.30-5.90) m/uL Hgb 9.7 L (13.5-17.5) gm/dL Hct 31.4 L (37.0-53.0) % MCV 85 (80-100) fL MCH 26 (26-34) pg MCHC 31 L (32-36) gm/dL RDW Coeff of [place] 19.8 H (11.5-15.5) % Plt Count 270 (140-440) K/uL Neut % (Auto) 90.8 H (42.0-72.0) % Lymph % (Auto) 6.0 L (20-44) % [place] % (Auto) 2.8 (0.0-11.0) % Eos % (Auto) 0.0 (0.0-7.0) % Baso % (Auto) 0.3 (0.0-3.0) % Neut # (Auto) 10.30 H (1.7-7.0) K/uL Lymph # (Auto) 0.70 L (0.90-2.90) K/uL [place] # (Auto) 0.30 (0.00-0.90) K/UL Eos # (Auto) 0.00 (0.00-0.50) K/uL Baso # (Auto) 0.00 (0.00-0.30) K/uL Abs Immat Gran (auto) 0.00 (0.00-0.30) K/uL Imm/Tot Granulo (auto) 0.1 % INR 1.03 (0.91-1.10) APTT 43 H (23-33) Seconds D-Dimer Quant (PE/DVT) 1.55 H (0.00-0.50) ug/ml Sodium 135 (135-149) mmol/L Potassium 4.1 (3.6-5.1) mmol/L Chloride 97 (96-114) mmol/L Carbon Dioxide 27 (20-32) mmol/L Anion Gap 11 (7-15) mEq/L BUN 13 (5-24) mg/dL Creatinine 0.7 (0.5-1.5) mg/dL Estimated Creat Clear 95.24 Estimated GFR 117 ml/min Glucose 101 (60-115) mg/dL Lactate 0.9 (0.5-1.9) mmol/L Calcium 8.6 (8.4-10.6) mg/dL C-Reactive Protein 20.7 H (0.5-1.0) mg/dL NT-Pro-B Natriuret Pep 156 pg/mL POC Troponin I 0.03 (0.01-0.04) ng/ml Discharge Plan Discharge Clinical Impression: Hypoxic, COVID-19, Pneumonia Cough Qualifiers: Cough type: chronic Qualified Code(s): R05.3 - Chronic cough Patient Disposition: Admitted As Observation Condition: Guarded Activity Level: Light activity
[2023-12-31 13:45] LABS: Lactate* 0.9 mmol/L (0.5-1.9)
[2023-12-31 13:47] LABS: Basophils Percent Auto 0.3 % (0.0-3.0); Hematocrit 31.4 % (37.0-53.0); Hemoglobin* 9.7 gm/dL (13.5-17.5); Immature Granulocytes Pct Auto 0.1 %; Mean Corpuscular HGB Conc 31 gm/dL (32-36); Mean Corpuscular Hemoglobin 26 pg (26-34); Mean Corpuscular Volume 85 fL (80-100); Monocytes Percent Auto 2.8 % (0.0-11.0); Neutrophils Percent Auto 90.8 % (42.0-72.0); Platelet Count* 270 K/uL (140-440); RDW Coefficient of Variation % 19.8 % (11.5-15.5); Red Blood Count 3.69 m/uL (4.30-5.90); White Blood Count* 11.38 K/uL (4.50-11.00)
[2023-12-31 13:48] LABS: Slide Review Reflex No
[2023-12-31 13:54] LABS: Troponin, Point-of-Care* 0.03 ng/ml (0.01-0.04)
[2023-12-31 14:07] LABS: Chloride* 97 mmol/L (96-114); Potassium* 4.1 mmol/L (3.6-5.1); Sodium* 135 mmol/L (135-149)
[2023-12-31 14:10] LABS: Creatinine* 0.7 mg/dL (0.5-1.5); Est. Creatinine Clearance* 95.24; Estimated Glomerular Filt Rate 117 ml/min; INR 1.03 (0.91-1.10); Prothrombin Time 14.1 Seconds
[2023-12-31 14:11] LABS: Anion Gap 11 mEq/L (7-15); Blood Urea Nitrogen* 13 mg/dL (5-24); Calcium* 8.6 mg/dL (8.4-10.6); Carbon Dioxide* 27 mmol/L (20-32); Glucose* 101 mg/dL (60-115); Partial Thromboplastin Time* 43 Seconds (23-33)
[2023-12-31 14:13] LABS: D Dimer Quantitative* 1.55 ug/ml (0.00-0.50)
[2023-12-31] MEDS: PIPERACILLIN/TAZOBACTAM 3.375 GM in 0.9 % SODIUM CHLORIDE Mini-bag 100 ML IVPB ×2 (14:20→20:27)
[2023-12-31 14:29] LABS: C Reactive Protein* 20.7 mg/dL (0.5-1.0); NT Pro B Type NatriureticPept* 156 pg/mL
[2023-12-31] MEDS: 0.9 % SODIUM CHLORIDE 500 ML 500 ML IV (14:40)
--- NOTE | 2023-12-31 14:41 | CRLHL7_ITS ---
For Patients: As a result of the Century Cures Act, medical imaging exams and procedure reports are released immediately into your electronic medical record. You may view this report before your referring provider. If you have questions, please contact your health care provider. Indication: SOB, COVID POSITIVE, ELEVATED D DIMER Technique: CT angiogram of the chest was performed for evaluation of pulmonary embolism. 95 mL of Isovue 370 intravenous contrast was administered. Comparison: Same day radiograph. Findings: CARDIOVASCULAR: Diagnostic quality: Contrast opacification of the pulmonary arterial circulation is adequate for assessment of pulmonary embolism. Study is not significantly limited by respiratory motion artifact. Pulmonary arteries: No filling defects to suggest pulmonary embolism. Not enlarged. Heart: No interventricular septal deviation. Normal in size. No significant coronary artery calcification. No significant valvular calcification. Pericardium: Small to moderate pericardial effusion. Thoracic aorta: No significant abnormality. Aberrant course of the right subclavian artery. REMAINING CHEST: Medical devices: None. Thyroid: Normal. Lymph nodes: No supraclavicular, axillary, mediastinal, or hilar lymphadenopathy. Other mediastinal structures: No significant abnormality. Lung parenchyma: Moderate patchy right greater than left-sided airspace opacities. Airways: Bronchial wall thickening. Pleura: Trace right pleural effusion. Chest wall: No significant abnormality. Upper abdomen: No significant abnormality. Musculoskeletal: Mild chronic healed bilateral rib fractures. Impression: 1. No acute pulmonary embolism. 2. Moderate patchy [id number]-nlhg-left areas sided airspace opacities are compatible with multifocal infection. Bronchial wall thickening may represent airways infection or inflammation. Trace right pleural effusion. 3. Small to moderate pericardial effusion. Please note that all CT scans at this facility use dose modulation, iterative reconstruction, and/or weight-based dosing when appropriate to reduce radiation dose to as low as reasonably achievable. Dictated by Elias Reddy MD @ 12/31/2023 4:25:32 PM (Electronically Signed)
--- NOTE | 2023-12-31 16:20 | RESP.RT ---
Patient up in bed on OxyMask, weaning by Nurse to 2 Lpm with SaO2 96%. [facility] with patient, uses well, good chest shake, promoted congested, productive cough, swallowed secretions.
[2023-12-31] MEDS: ACETAMINOPHEN 325 MG TABLET 975 MG PO (17:34)
[2023-12-31] MEDS: dexAMETHasone 2 MG TABLET 6 MG PO (17:35)
--- NOTE | 2023-12-31 19:44 | PC.NURSE ---
Nursing Care Hours: [id number] Pt this shift arrived from ED on w/c with home ENGINE HEAD REPAIRER present. SB assist to bathroom. BP and pulse stable. Required 3L oxymask to keep sats above 90%. Was able to titrate down to 1L. Cough noted. Afebrile. No c/o pain but ENGINE HEAD REPAIRER says he would say ow during cough making her think that he has a sore throat. Rest of pt family c/o sore throat with their illness. Acetaminophen given. IV patent and running, ENGINE HEAD REPAIRER given education on Remdesivir. Tele on.
[2023-12-31] MEDS: QUETIAPINE 100 MG TABLET PO (21:01)
[2023-12-31] MEDS: OMEPRAZOLE 20 MG CAPSULE DR PO (21:01)
[2023-12-31] MEDS: MONTELUKAST 10 MG TABLET PO (21:01)
[2023-12-31] MEDS: BUDESONIDE 0.5 MG/2ML NEB NEB (21:01)
--- NOTE | 2023-12-31 21:23 | P.IMHP_ITS ---
Hospitalist- H&P: HPI History of Present Illness Time Seen by Provider: 17:30 Date Seen: 12/31/23 Chief complaint: +Covid, pneumonia, low O2 Narrative: Dwight Hatch is a 43 year old male with Down's syndrome and frontotemporal dementia whose POWER GENERATING PLANT OPERATOR is with him and gives history. She tells me that Samuel has had recurrent aspiration pneumonia since his last hospitalization in June. These seem almost constant, according to her. About two or three weeks ago, he had just finished a course of antibiotics for aspriation pneumonia and then last week he was choking and started coughing and SOB again. On Sunday his whole family (including him) tested positive for Covid. Today his oxygen saturations were as low as 72% on room air and he appeared short of breath. Due to Covid, his parents cannot come in and be with him today. Review of Systems Status of ROS: Reports: unobtainable due to medical condition (frontotemporal dementia) [facility] Medical History (Updated 12/31/23 @ 22:00 by Octavia Gonzalez MD) Frontotemporal dementia ?G31.09 - Other frontotemporal neurocognitive disorder (ICD-10) ?F02.80 - Dementia in other diseases classified elsewhere, unspecified severity, without behavioral disturbance, psychotic disturbance, mood disturbance, and anxiety (ICD-10) Duodenal ulcer ?K26.9 - Duodenal ulcer, unspecified as acute or chronic, without hemorrhage or perforation (ICD-10) Obstructive sleep apnea ?G47.33 - Obstructive sleep apnea (adult) (pediatric) (ICD-10) Chronic back pain ?M54.9 - Dorsalgia, unspecified (ICD-10) ?G89.29 - Other chronic pain (ICD-10) Aspiration pneumonitis ?J69.0 - Pneumonitis due to inhalation of food and vomit (ICD-10) Pneumonia ?J18.9 - Pneumonia, unspecified organism (ICD-10) History of aspiration pneumonia ?Z87.01 - Personal history of pneumonia (recurrent) (ICD-10) Major depressive disorder ?F32.9 - Major depressive disorder, single episode, unspecified (ICD-10) Obsessive compulsive disorder ?F42.9 - Obsessive-compulsive disorder, unspecified (ICD-10) Celiac disease ?K90.0 - Celiac disease (ICD-10) Down syndrome ?Q90.9 - Down syndrome, unspecified (ICD-10) Surgical History (Updated 12/31/23 @ 21:37 by Octavia Gonzalez MD) H/O esophagogastroduodenoscopy ?Z98.890 - Other specified postprocedural states (ICD-10) H/O umbilical hernia repair ?Z98.890 - Other specified postprocedural states (ICD-10) ?Z87.19 - Personal history of other diseases of the digestive system (ICD-10) History of tympanoplasty ?Z98.890 - Other specified postprocedural states (ICD-10) Family History Maternal Grandfather Leukemia Maternal Grandmother Colon cancer Social History (Updated 12/31/23 @ 21:37 by Octavia Gonzalez MD) Narrative: He lives with his parents and there is a attendant arcade, 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 He does not smoke or drink alcohol. What is your current living situation?: I presently have a place to live Problems where you live: no known problems Problems where you live details: NA In the past 12 months, utilities in danger of being shut off: no In past 12 months, lack of transportation kept you from medical appts, meetings, work, or getting things needed for daily living: no In the past 12 mos, have been you worried that your food would run out before you had money to buy more?: never true In the past 12 mos, the food you bought just didn't last and you didn't have money to buy more?: never true Highest level of school completed/degree received: high school graduate Smoking Status: Never smoker How often do you have a drink containing alcohol: never How often do you have six or more drinks on one occasion: Never AUDIT-C Alcohol total score: 0 Non-prescribed substance use: denies use Caffeine: No How often does anyone, including family, friends and others, physically hurt you : unable to answer How often does anyone, including family, friends and others, insult or talk down to you: unable to answer How often does anyone, including family, friends and others, threaten you with harm: unable to answer How often does anyone, including family, friends and others, scream or curse at you: unable to answer service: No Meds Home Medications and Allergies Home Medications ?Medication ?Instructions ?Recorded ?Confirmed ?Type lorazepam 1 mg tablet 0.25 mg PO TID PRN anxiety 04/17/23 12/31/23 History multivit,calcium,min-folic acid 1 tab PO DAILY 04/17/23 12/31/23 History 240 mcg-D3 25 mcg-lycop 300 mcg tablet (One A Day Men Complete) fluvoxamine 100 mg tablet 100 mg PO BID 06/30/23 12/31/23 History quetiapine 100 mg tablet 100 - 200 mg PO HS 06/30/23 12/31/23 History albuterol sulfate 2.5 mg/3 mL 2.5 mg continuous nebulization Q4H 12/13/23 12/31/23 History (0.083 %) solution for nebulization PRN cough montelukast 10 mg tablet 10 mg PO HS 12/13/23 12/31/23 History acetaminophen 650 mg 1,300 mg PO Q12H PRN 12/31/23 12/31/23 History tablet,extended release (8 Hour Pain Reliever) budesonide 0.5 mg/2 mL suspension 0.5 mg inhalation BID 12/31/23 12/31/23 History for nebulization cholecalciferol (vitamin D3) 50 50 mcg PO DAILY 12/31/23 12/31/23 History mcg (2,000 unit) capsule ipratropium 0.5 mg-albuterol 3 mg 3 ml inhalation Q6H PRN shortness 12/31/23 12/31/23 History (2.5 mg base)/3 mL nebulization of breath or wheezing soln quetiapine 25 mg tablet (Seroquel) 12.5 mg PO QPM 12/31/23 12/31/23 History Allergies Allergy/AdvReac Type Severity Reaction Status Date / Time gluten Allergy Verified 12/31/23 15:34 Exam Narrative: Exam Narrative: General: No acute distress. Facial appearance consistent with Down syndrome. Awake, alert, oriented to self. He is on 3 L Oxymask satting in the mid 90s. HEENT: Normocephalic atraumatic, pupils equally round and reactive to light and accommodation. Oropharynx clear. Mucous membranes are moist. No cervical lymphadenopathy, thyromegaly or carotid bruits. No JVD. Cardiovascular: Regular rate and rhythm. No murmurs, gallops, or rubs. Chest: No increased work of breathing. Coarse upper airway sounds. Crackles in the right middle to low chest. Abdomen: Bowel sounds present. Soft, nondistended, nontender. No hepatosplenomegaly or masses. Extremities: No edema, no cyanosis or clubbing. Skin: No jaundice, no pallor, no rashes. Const: Vital Signs, click to edit/add: Vital Signs - 24 hr 12/31/23 12:05 12/31/23 12:25 12/31/23 12:26 Temperature 97.8 F Pulse Rate [Pulse Oximeter] 113 H Pulse Rate [Right Pulse Oximeter] Respiratory Rate 20 Blood Pressure [Ri ght Arm] Blood Pressure [Ri ght Upper Arm] 125/62 Pulse Oximetry 85 L 94 95 Oxygen Delivery Me thod Room Air OxyMask OxyMask Oxygen Flow Rate 6 6 12/31/23 12:32 12/31/23 12:32 12/31/23 15:40 Temperature 98.4 F Pulse Rate [Pulse Oximeter] Pulse Rate [Right Pulse Oximeter] 92 Respiratory Rate Blood Pressure [Ri ght Arm] 133/87 Blood Pressure [Ri ght Upper Arm] Pulse Oximetry 97 100 95 Oxygen Delivery Me thod OxyMask OxyMask Oxygen Flow Rate 8 2 12/31/23 15:40 12/31/23 16:16 12/31/23 16:29 Temperature Pulse Rate [Pulse Oximeter] Pulse Rate [Right Pulse Oximeter] Respiratory Rate 22 Blood Pressure [Ri ght Arm] Blood Pressure [Ri ght Upper Arm] Pulse Oximetry 96 96 96 Oxygen Delivery Me thod OxyMask OxyMask Oxygen Flow Rate 2 2 12/31/23 19:00 Temperature 98.2 F Pulse Rate [Pulse Oximeter] Pulse Rate [Right Pulse Oximeter] 89 Respiratory Rate 22 Blood Pressure [Ri ght Arm] 107/74 Blood Pressure [Ri ght Upper Arm] Pulse Oximetry 93 Oxygen Delivery Me thod OxyMask Oxygen Flow Rate 1 Hospitalist - H&P: Result Labs Labs: Short CBC 12/31/23 Range/Units 13:39 WBC 11.38 H (4.50-11.00) K/uL Hgb 9.7 L (13.5-17.5) gm/dL Hct 31.4 L (37.0-53.0) % Plt Count 270 (140-440) K/uL BMP 12/31/23 13:39 Sodium 135 Potassium 4.1 Chloride 97 Carbon Dioxide 27 BUN 13 Creatinine 0.7 Glucose 101 Calcium 8.6 12/31/2023 EKG: Normal sinus rhythm, 99 beats per minute. Normal EKG. Ordering Physician: Zack Urbina M.D. Date of Service: 12/31/23 Procedure(s): XR chest 2V Accession Number(s): [id number] cc: Carrie Pena M.D.; Zack Urbina M.D.~ For Patients: As a result of the Cures Act, medical imaging exams and procedure reports are released immediately into your electronic medical record. You may view this report before your referring provider. If you have questions, please contact your health care provider. Indication: Shortness of breath Technique: Chest 2 views Comparison: Chest x-ray 12/15/2023 Findings/Impression: Cardiovascular and mediastinum: Heart size and vasculature are normal in caliber and appearance. Mediastinum is within normal limits. Lungs and pleural spaces: No pleural effusion or pneumothorax. Patchy opacities are identified within the lungs. These have somewhat changed in distribution with interval improvement within the left lung compared to the prior exam, however opacities within the right perihilar region and right upper lobe are worsened compared to the prior exam. Bones and soft tissues: Old right 6th rib fracture. Straightening of the thoracic spine. Dictated by Baldemar Matos MD @ 12/31/2023 1:48:17 PM (Electronically Signed) Ordering Physician: Zack Urbina M.D. Date of Service: 12/31/23 Procedure(s): CT angio chest PE protocol Accession Number(s): [id number] cc: Carrie Pena M.D.; Zack Urbina M.D.~ For Patients: As a result of the Cures Act, medical imaging exams and procedure reports are released immediately into your electronic medical record. You may view this report before your referring provider. If you have questions, please contact your health care provider. Indication: SOB, COVID POSITIVE, ELEVATED D DIMER Technique: CT angiogram of the chest was performed for evaluation of pulmonary embolism. 95 mL of Isovue 370 intravenous contrast was administered. Comparison: Same day radiograph. Findings: CARDIOVASCULAR: Diagnostic quality: Contrast opacification of the pulmonary arterial circulation is adequate for assessment of pulmonary embolism. Study is not significantly limited by respiratory motion artifact. Pulmonary arteries: No filling defects to suggest pulmonary embolism. Not enlarged. Heart: No interventricular septal deviation. Normal in size. No significant coronary artery calcification. No significant valvular calcification. Pericardium: Small to moderate pericardial effusion. Thoracic aorta: No significant abnormality. Aberrant course of the right subclavian artery. REMAINING CHEST: Medical devices: None. Thyroid: Normal. Lymph nodes: No supraclavicular, axillary, mediastinal, or hilar lymphadenopathy. Other mediastinal structures: No significant abnormality. Lung parenchyma: Moderate patchy right greater than left-sided airspace opacities. Airways: Bronchial wall thickening. Pleura: Trace right pleural effusion. Chest wall: No significant abnormality. Upper abdomen: No significant abnormality. Musculoskeletal: Mild chronic healed bilateral rib fractures. Impression: 1. No acute pulmonary embolism. 2. Moderate patchy deqod-nexgsel-qvps-left areas sided airspace opacities are compatible with multifocal infection. Bronchial wall thickening may represent airways infection or inflammation. Trace right pleural effusion. 3. Small to moderate pericardial effusion. Please note that all CT scans at this facility use dose modulation, iterative reconstruction, and/or weight-based dosing when appropriate to reduce radiation dose to as low as reasonably achievable. Dictated by Elias Reddy MD @ 12/31/2023 4:25:32 PM (Electronically Signed) Assessment and Plan Assessment and plan (1) Acute hypoxemic respiratory failure due to COVID-19: Problem comment: - Multifactorial due to Covid and suspected aspiration pneumonia. This is also complicated by severe sleep apnea (recently diagnosed at [facility]). Status: Acute (2) COVID-19: Problem comment: - Since he is hypoxic, I have started him on Remdesivir and dexamethasone. Will monitor for any rapid worsening or increasing oxygen needs, as we would need to add baricitinib in those situations. - COVID precautions - Patient animal care supervisor has not noted any weakness. I do not think PT/OT would be helpful at this time. Monitor. Status: Acute (3) Aspiration pneumonia: Problem comment: - Has recurrent aspiration pneumonia - Start zosyn - Obtain speech consult - Continue home nebs, respiratory therapy consult, vibratory pep Status: Suspected (4) Obstructive sleep apnea: Problem comment: - 12/28/23 Sleep study (Dr. Raymundo Espinoza, [facility]) showed severe sleep apnea with marked hypoxemia. Recommended to d/w PCP starting auto-titrating CPAP 5-20 cm. I do not think this conversation as taken place yet as this study results came back just 3 days ago. And he has had COVID that whole time. - respiratory therapy consult Status: Chronic (5) Normocytic anemia: Problem comment: - h/o duodenal ulcer in June of this year - acute on chronic. No reports of bleeding. No signs of bleeding on exam. - Check iron, B12, folate, recheck Hgb in am. Status: Acute
[2024-01-01] VITALS (8 sets, daily range): BP systolic 108–122; BP diastolic 62–78; PULSE 65–87; RESP 18–22; TEMP 36.3–36.8; O2SAT 92–100
[2024-01-01] MEDS: PIPERACILLIN/TAZOBACTAM 3.375 GM in 0.9 % SODIUM CHLORIDE Mini-bag 100 ML IVPB ×4 (02:42→22:06)
--- NOTE | 2024-01-01 05:04 | PC.NURSE ---
Shift note: Pt has been on 1L oxygen at the start of the shift at 1900. When pt was sleeping at 2200, nurse noted periods of apnea which occur several times within a minute, dropping the O2 sat to as low as 45%. This low O2 rapidly rise to above 90% within seconds of drop. This has been the occurrence throughout the night, especially when pt is sleeping. O2 level increased to 4L to improve the O2 sat. MD informed and ordered to maintain pt on the oxygen and continue to monitor. No fever recorded but pt had periods of perspirations. FISH BIN TENDER has been with pt throughout the night. No cough recorded.
[2024-01-01 06:38] LABS: Iron* 13 ug/dL (49-181)
[2024-01-01 06:48] LABS: Percent Iron Saturation 4 % (20-50); Total Iron Binding Capacity 302 ug/dL (261-462)
[2024-01-01 07:25] LABS: Vitamin B12* 646 pg/mL (243-894)
[2024-01-01] MEDS: SODIUM CHLORIDE 0.9 % (FLUSH) 10 ML SYRINGE 5 ML IVF ×2 (08:22→20:45)
[2024-01-01] MEDS: BUDESONIDE 0.5 MG/2ML NEB NEB ×2 (09:11→20:44)
[2024-01-01] MEDS: OMEPRAZOLE 20 MG CAPSULE DR PO ×2 (09:11→20:43)
[2024-01-01] MEDS: MULTIVITAMIN/MINERALS 1 TABLET 1 TAB PO (09:11)
[2024-01-01 09:22] LABS: Chloride* 104 mmol/L (96-114); Potassium* 4.4 mmol/L (3.6-5.1); Sodium* 142 mmol/L (135-149)
[2024-01-01 09:24] LABS: Creatinine* 0.6 mg/dL (0.5-1.5); Est. Creatinine Clearance* 111.11; Estimated Glomerular Filt Rate 122 ml/min
[2024-01-01 09:25] LABS: Anion Gap 8 mEq/L (7-15); Blood Urea Nitrogen* 14 mg/dL (5-24); Carbon Dioxide* 30 mmol/L (20-32); Glucose* 134 mg/dL (60-115)
[2024-01-01 09:26] LABS: Calcium* 8.6 mg/dL (8.4-10.6)
[2024-01-01 09:28] LABS: Basophils Absolute Auto 0.01 K/uL (0.00-0.30); Basophils Percent Auto 0.1 % (0.0-3.0); Hematocrit 33.9 % (37.0-53.0); Mean Corpuscular HGB Conc 30 gm/dL (32-36); Mean Corpuscular Hemoglobin 26 pg (26-34); Mean Corpuscular Volume 89 fL (80-100); Monocytes Percent Auto 0.8 % (0.0-11.0); Neutrophils Percent Auto 94.1 % (42.0-72.0); Platelet Count* 275 K/uL (140-440); RDW Coefficient of Variation % 20.3 % (11.5-15.5); Red Blood Count 3.81 m/uL (4.30-5.90); White Blood Count* 7.64 K/uL (4.50-11.00)
--- NOTE | 2024-01-01 09:38 | RESP.RT ---
Patient seen today by RT. Worked with patient on use of Aerobika device. Level 3. Patient was able to participate in therapy. Productive cough generated and swallowed by patient. Respiratory Therapy will continue to follow.
[2024-01-01 09:41] LABS: C Reactive Protein* 25.7 mg/dL (0.5-1.0)
[2024-01-01 09:47] LABS: Slide Review Acceptable Review (Acceptable); Slide Review Reflex Yes
--- NOTE | 2024-01-01 11:58 | P.IMPN_ITS ---
Progress Note: A&P Assessment and plan (1) Acute hypoxemic respiratory failure due to COVID-19: Problem details: - Multifactorial due to Covid and suspected aspiration pneumonia. This is also complicated by severe sleep apnea (recently diagnosed at [facility]). - O2 saturations 85% on room air in ED - continue oxygen supplementation, maintaining saturations >92%, weaning as able - respiratory therapy following, aerobika - echo ordered for 12/31 Status: Acute (2) COVID-19: Problem details: - Since he is hypoxic, I have started him on Remdesivir and dexamethasone. Will monitor for any rapid worsening or increasing oxygen needs, as we would need to add baricitinib in those situations. - COVID precautions - Patient after school caregiver has not noted any weakness. I do not think PT/OT would be helpful at this time. Monitor. Status: Acute (3) Aspiration pneumonia: Problem details: - Has recurrent aspiration pneumonia - continue Zosyn. Leukocytosis resolved, CRP remains mildly elevated - Obtain speech consult - 01/01 - Continue home nebs, respiratory therapy consult, vibratory pep Status: Suspected (4) Obstructive sleep apnea: Problem details: - 12/28/23 Sleep study (Dr. Raymundo Espinoza, [facility]) showed severe sleep apnea with marked hypoxemia. Recommended to d/w PCP starting auto-titrating CPAP 5-20 cm. I do not think this conversation as taken place yet as this study results came back just 3 days ago. And he has had COVID that whole time. - respiratory therapy following Status: Chronic (5) Normocytic anemia: Problem details: - h/o duodenal ulcer in June of this year - acute on chronic. No reports of bleeding. No signs of bleeding on exam. - hemoglobin 10, stable, iron 13, TIBC 302, B12 646, folate pending Status: Acute Time Spent With Patient Total time spent: Total time spent caring for the patient today was 45 minutes. This includes time spent for the visit reviewing the chart, time spent during the visit, time spent after the visit and documentation and planning in coordination of care. Subjective Date Seen: 01/01/24 Interval history: Patient is seen with caregiver, Meagan, at bedside. She reports no significant change since admission. Patient is sleeping, easily woken. Denies pain of any sort. Has been tolerating orals without vomiting or diarrhea. Has remained afebrile. Uses oxygen while sleeping only. Exam Narrative: Exam Narrative: PHYSICAL EXAM General: Pleasant, NAD HEENT: Normocephalic, atraumatic, sclera white, EOMI, oral mucosa moist Cardiovascular: RRR, S1S2. No pitting edema Pulmonary: Diffuse coarse breath sounds throughout, no dyspnea Abdominal: Soft, nondistended, NTTP Neurological: Alert, answering questions appropriately, cranial nerves intact, no focal findings Extremities: No gross joint deformity or swelling. AROMI. Neurovascularly intact Skin: Warm, dry. Const: Vital Signs, click to edit/add: Vital Signs - 24 hr 12/31/23 12:05 12/31/23 12:25 12/31/23 12:26 Temperature 97.8 F Pulse Rate Pulse Rate [Pulse Oximeter] 113 H Pulse Rate [Right Pulse Oximeter] Respiratory Rate 20 Blood Pressure [Ri ght Arm] Blood Pressure [Ri ght Upper Arm] 125/62 Pulse Oximetry 85 L 94 95 Oxygen Delivery Me thod Room Air OxyMask OxyMask Oxygen Flow Rate 6 6 12/31/23 12:32 12/31/23 12:32 12/31/23 15:40 Temperature 98.4 F Pulse Rate Pulse Rate [Pulse Oximeter] Pulse Rate [Right Pulse Oximeter] 92 Respiratory Rate Blood Pressure [Ri ght Arm] 133/87 Blood Pressure [Ri ght Upper Arm] Pulse Oximetry 97 100 95 Oxygen Delivery Me thod OxyMask OxyMask Oxygen Flow Rate 8 2 12/31/23 15:40 12/31/23 16:16 12/31/23 16:29 Temperature Pulse Rate Pulse Rate [Pulse Oximeter] Pulse Rate [Right Pulse Oximeter] Respiratory Rate 22 Blood Pressure [Ri ght Arm] Blood Pressure [Ri ght Upper Arm] Pulse Oximetry 96 96 96 Oxygen Delivery Me thod OxyMask OxyMask Oxygen Flow Rate 2 2 12/31/23 19:00 12/31/23 23:00 12/31/23 23:00 Temperature 98.2 F Pulse Rate 75 Pulse Rate [Pulse Oximeter] Pulse Rate [Right Pulse Oximeter] 89 88 Respiratory Rate 22 22 Blood Pressure [Ri ght Arm] 107/74 Blood Pressure [Ri ght Upper Arm] Pulse Oximetry 93 Oxygen Delivery Me thod OxyMask Oxygen Flow Rate 1 12/31/23 23:00 12/31/23 23:00 01/01/24 02:44 Temperature 97.6 F 97.4 F L Pulse Rate Pulse Rate [Pulse Oximeter] Pulse Rate [Right Pulse Oximeter] 88 83 Respiratory Rate 22 22 22 Blood Pressure [Ri ght Arm] 122/71 122/68 Blood Pressure [Ri ght Upper Arm] Pulse Oximetry 93 93 92 Oxygen Delivery Me thod OxyMask OxyMask OxyMask Oxygen Flow Rate 2 2 4 01/01/24 07:00 01/01/24 07:00 01/01/24 07:00 Temperature Pulse Rate 87 Pulse Rate [Pulse Oximeter] Pulse Rate [Right Pulse Oximeter] 84 Respiratory Rate 22 22 Blood Pressure [Ri ght Arm] Blood Pressure [Ri ght Upper Arm] Pulse Oximetry 95 Oxygen Delivery Me thod OxyMask Oxygen Flow Rate 4 01/01/24 07:00 01/01/24 09:35 01/01/24 09:42 Temperature 97.6 F Pulse Rate Pulse Rate [Pulse Oximeter] Pulse Rate [Right Pulse Oximeter] 84 Respiratory Rate 22 Blood Pressure [Ri ght Arm] 116/78 Blood Pressure [Ri ght Upper Arm] Pulse Oximetry 95 Oxygen Delivery Me thod OxyMask OxyMask OxyMask Oxygen Flow Rate 4 4 4 Labs Labs: Laboratory Results - last 24 hr 12/31/23 12/31/23 01/01/24 12:33 13:39 06:10 WBC 11.38 H 7.64 RBC 3.69 L 3.81 L Hgb 9.7 L 10.0 L Hct 31.4 L 33.9 L MCV 85 89 MCH 26 26 MCHC 31 L 30 L RDW Coeff of [place] 19.8 H 20.3 H Plt Count 270 275 Neut % (Auto) 90.8 H 94.1 H Lymph % (Auto) 6.[address] [place] % (Auto) 2.8 0.8 Eos % (Auto) 0.0 0.0 Baso % (Auto) 0.3 0.1 Neut # (Auto) 10.30 H 7.20 H Lymph # (Auto) 0.[address] [place] # (Auto) 0.30 0.10 Eos # (Auto) 0.00 0.00 Baso # (Auto) 0.00 0.01 Abs Immat Gran (auto) 0.00 0.00 Imm/Tot Granulo (auto) 0.1 0.0 Diff Slide Review Acceptable Review INR 1.03 APTT 43 H D-Dimer Quant (PE/DVT) 1.55 H Sodium 135 142 Potassium 4.1 4.4 Chloride 97 104 Carbon Dioxide 27 30 Anion Gap 11 8 BUN 13 14 Creatinine 0.7 0.6 Estimated Creat Clear 95.24 111.11 Estimated GFR 117 122 Glucose 101 134 H Lactate 0.9 Calcium 8.6 8.6 Iron 13 L TIBC 302 % Saturation 4 L C-Reactive Protein 20.7 H 25.7 H NT-Pro-B Natriuret Pep 156 Vitamin B12 646 POC Troponin I 0.03
[2024-01-01] MEDS: ACETAMINOPHEN 325 MG TABLET 975 MG PO (15:33)
[2024-01-01] MEDS: dexAMETHasone 2 MG TABLET 6 MG PO (17:50)
[2024-01-01] MEDS: QUETIAPINE 25 MG TABLET 12.5 MG PO (17:50)
--- NOTE | 2024-01-01 19:04 | PC.NURSE ---
End of shift: patient is pleasant and cooperative. Patient on 2L oxy mask throughout day and tolerating well. Patient tolerating a reg diet, SBA to BR and afebrile this shift. IV in left AC SL. caregiver in room with patient throughout the day.
[2024-01-01] MEDS: MONTELUKAST 10 MG TABLET PO (20:43)
[2024-01-01] MEDS: QUETIAPINE 100 MG TABLET PO (20:44)
[2024-01-02 03:00] VITALS: BP 117/77; PULSE 59; RESP 20; TEMP 36.6; O2SAT 94
[2024-01-02] MEDS: PIPERACILLIN/TAZOBACTAM 3.375 GM in 0.9 % SODIUM CHLORIDE Mini-bag 100 ML IVPB ×2 (03:34→10:46)
[2024-01-02 06:37] LABS: Hematocrit 31.4 % (37.0-53.0); Hemoglobin* 9.4 gm/dL (13.5-17.5); Mean Corpuscular HGB Conc 30 gm/dL (32-36); Mean Corpuscular Hemoglobin 26 pg (26-34); Mean Corpuscular Volume 87 fL (80-100); Platelet Count* 240 K/uL (140-440); Red Blood Count 3.61 m/uL (4.30-5.90); White Blood Count* 4.52 K/uL (4.50-11.00)
[2024-01-02 06:44] LABS: Slide Review Reflex No
--- NOTE | 2024-01-02 06:46 | PC.NURSE ---
End of shift [id number]: patient is pleasant and cooperative. Patient on 1L oxy mask during the evening and 2L oxy mask throughout the night, tolerating well. Patient tolerating a reg diet/fluids. SBA in room. Pt took a shower in the evening. IV in left AC SL. caregiver in room with patient throughout shift. Pt expressed no pain present verbally and nonverbally. Pt appears resting comfortably with call light in reach. ?
[2024-01-02 07:00] LABS: Chloride* 102 mmol/L (96-114); Potassium* 3.9 mmol/L (3.6-5.1); Sodium* 140 mmol/L (135-149)
[2024-01-02 07:03] LABS: Anion Gap 7 mEq/L (7-15); Blood Urea Nitrogen* 13 mg/dL (5-24); Carbon Dioxide* 31 mmol/L (20-32); Creatinine* 0.5 mg/dL (0.5-1.5); Est. Creatinine Clearance* 133.33; Estimated Glomerular Filt Rate 129 ml/min
[2024-01-02 07:04] LABS: Calcium* 8.3 mg/dL (8.4-10.6); Glucose* 132 mg/dL (60-115)
[2024-01-02 07:19] LABS: C Reactive Protein* 16.5 mg/dL (0.5-1.0)
[2024-01-02 08:30] VITALS: PULSE 90
[2024-01-02 08:36] VITALS: BP 123/90; PULSE 82; RESP 20; TEMP 36.6; O2SAT 90
[2024-01-02] MEDS: BUDESONIDE 0.5 MG/2ML NEB NEB (08:37)
[2024-01-02] MEDS: MULTIVITAMIN/MINERALS 1 TABLET 1 TAB PO (08:38)
[2024-01-02] MEDS: OMEPRAZOLE 20 MG CAPSULE DR PO (08:38)
[2024-01-02] MEDS: SODIUM CHLORIDE 0.9 % (FLUSH) 10 ML SYRINGE 5 ML IVF (08:38)
[2024-01-02] MEDS: ACETAMINOPHEN 325 MG TABLET 975 MG PO (09:07)
[2024-01-02 11:31] VITALS: O2SAT 85; O2SAT 89; O2SAT 92
--- NOTE | 2024-01-02 12:03 | PM.DS1 ---
DS: Providers Provider Date Seen: 01/02/24 Date of admission: 12/31/23 16:29 Primary care physician: Carrie Pena MD Admitting Clinician: Herber El MD Consults: 12/31/23 16:29 Consult to Respiratory Therapy [CONS] Routine Comment: Reason(s) for RT Consult:: Consult 12/31/23 21:56 Consult to Speech Therapy [CONS] Routine Comment: Reason(s) for Speech Consult:: Swallowing Difficulty Attending Physician on discharge: Amairani Rg [facility] Date of Discharge: 01/02/24 DS: Diagnosis Discharge Diagnosis (1) Acute hypoxemic respiratory failure due to COVID-19: Status: Acute Problem details: - Multifactorial due to Covid and suspected aspiration pneumonia. This is also complicated by severe sleep apnea (recently diagnosed at [facility]). - O2 saturations 85% on room air in ED - continue oxygen supplementation, maintaining saturations >92%, weaning as able. Weaned to room air during daytime hours. Still requiring oxygen at nighttime in setting of recently diagnosed severe ELY, awaiting CPAP. - respiratory therapy following, aerobika - echocardiogram 12/31 Final Impressions: 1. Normal left ventricular size, normal wall thickness, normal global systolic function, calculated EF of 65 %. 2. Right ventricular cavity size is normal, global systolic RV function is normal. 3. Normal left atrium size. 4. The aortic valve is normal, no stenosis and trivial regurgitation. 5. The mitral valve is normal, trace mitral regurgitation. 6. Tricuspid valve is normal. 7. Small to moderate circumferential pericardial effusion. (2) COVID-19: Status: Acute Problem details: - Since he is hypoxic, I have started him on Remdesivir and dexamethasone. Will monitor for any rapid worsening or increasing oxygen needs, as we would need to add baricitinib in those situations. Given oxygen need only at nighttime, will discontinue any further dosing of remdesivir and dexamethasone on discharge. - COVID precautions - Patient ocular care technologist has not noted any weakness. I do not think PT/OT would be helpful at this time. Monitor. (3) Aspiration pneumonia: Status: Suspected Problem details: - Has recurrent aspiration pneumonia - continue Zosyn. Leukocytosis resolved, CRP remains mildly elevated. Discharged on oral Augmentin and azithromycin. - speech therapy consulted, recommending outpatient modified barium swallow study. PCP to arrange - Continue home nebs, respiratory therapy consult, vibratory pep (4) Obstructive sleep apnea: Status: Chronic Problem details: - 12/28/23 Sleep study (Dr. Raymundo Espinoza [facility]) showed severe sleep apnea with marked hypoxemia. Recommended to d/w PCP starting auto-titrating CPAP 5-20 cm. I do not think this conversation as taken place yet as this study results came back just 3 days ago. And he has had COVID that whole time. - respiratory therapy following. Patient to discharge home with oxygen for nighttime. Will need to follow up to have his CPAP fitted and delivered. (5) Normocytic anemia: Status: Acute Problem details: - h/o duodenal ulcer in June of this year - acute on chronic. No reports of bleeding. No signs of bleeding on exam. - hemoglobin 10, stable, iron 13, TIBC 302, B12 646, folate pending. Further workup and management per PCP following discharge DS: Summary Hospital Course Hospital Course: [age] year old male was admitted to the medical floor for further management COVID with aspiration pneumonia. Course of care and details as noted above. Initially hypoxic, weaned to room air during daytime hours. Still requiring oxygen at nighttime (baseline in setting of severe ELY), awaiting CPAP fitting and delivery. Discharged home with oral Augmentin and azithromycin. Received 2 doses dexamethasone and remdesivir prior to discharge. Follow-up for CPAP fitting. Speech therapy assessed, recommending outpatient modified barium swallow study. Remainder of chronic medical comorbidities were monitored and managed with home medications. Status at Discharge Functional status at discharge: independent ambulation Overall status at discharge: patient is back to baseline Time Spent with Patient Time attestation: Total time spent providing and/or coordinating discharge services: Exam Narrative: Exam Narrative: PHYSICAL EXAM General: Pleasant, conversant, NAD Cardiovascular: RRR Pulmonary: No dyspnea on room air Neurological: Alert, answering questions appropriately Skin: Warm, dry. Const: Vital Signs, click to edit/add: Vital Signs - 24 hr 01/01/24 15:00 01/01/24 15:00 01/01/24 15:00 Temperature 97.6 F Pulse Rate 83 Pulse Rate [Right Pulse Oximeter] 86 86 Respiratory Rate 20 20 Blood Pressure [Ri ght Arm] 108/77 Pulse Oximetry 95 Oxygen Delivery Me thod OxyMask Oxygen Flow Rate 2 01/01/24 16:29 01/01/24 17:22 01/01/24 19:00 Temperature 98.1 F Pulse Rate Pulse Rate [Right Pulse Oximeter] 65 Respiratory Rate 18 18 Blood Pressure [Ri ght Arm] 119/62 Pulse Oximetry 95 93 Oxygen Delivery Me thod OxyMask OxyMask Oxygen Flow Rate 2 2 01/01/24 22:14 01/01/24 23:00 01/01/24 23:00 Temperature 98.2 F Pulse Rate Pulse Rate [Right Pulse Oximeter] 84 84 Respiratory Rate 18 Blood Pressure [Ri ght Arm] 112/73 Pulse Oximetry 100 97 Oxygen Delivery Me thod OxyMask OxyMask Oxygen Flow Rate 2 1 01/01/24 23:00 01/02/24 03:00 01/02/24 08:36 Temperature 98 F Pulse Rate 79 Pulse Rate [Right Pulse Oximeter] 59 L Respiratory Rate 20 20 Blood Pressure [Ri ght Arm] 117/77 Pulse Oximetry 94 90 Oxygen Delivery Me thod OxyMask Room Air Oxygen Flow Rate 2 01/02/24 08:36 Temperature 97.8 F Pulse Rate Pulse Rate [Right Pulse Oximeter] 82 Respiratory Rate 20 Blood Pressure [Ri ght Arm] 123/90 H Pulse Oximetry 90 Oxygen Delivery Me thod Room Air Oxygen Flow Rate DS: Data Data Completed and Pending Completed studies during hospitalization: Procedures Introduction of Other Therapeutic Substance into Respiratory Tract, Via Natural or Artificial Opening (04/18/23) Labs on day of discharge: Labs from last 24 hours 01/02/24 06:28 WBC 4.52 RBC 3.61 L Hgb 9.4 L Hct 31.4 L MCV 87 MCH 26 MCHC 30 L Plt Count 240 Sodium 140 Potassium 3.9 Chloride 102 Carbon Dioxide 31 Anion Gap 7 BUN 13 Creatinine 0.5 Estimated Creat Clear 133.33 Estimated GFR 129 Glucose 132 H Calcium 8.3 L C-Reactive Protein 16.5 H Preliminary micro results at discharge 12/31/23 13:39 Blood Culture - Preliminary Blood NO GROWTH AFTER 24 HOURS Imaging CTA chest: Attestation: I have reviewed the pertinent imaging results. Radiologist's impression: CT angiogram of the chest was performed for evaluation of pulmonary embolism. 95 mL of Isovue 370 intravenous contrast was administered. Comparison: Same day radiograph. Findings: CARDIOVASCULAR: Diagnostic quality: Contrast opacification of the pulmonary arterial circulation is adequate for assessment of pulmonary embolism. Study is not significantly limited by respiratory motion artifact. Pulmonary arteries: No filling defects to suggest pulmonary embolism. Not enlarged. Heart: No interventricular septal deviation. Normal in size. No significant coronary artery calcification. No significant valvular calcification. Pericardium: Small to moderate pericardial effusion. Thoracic aorta: No significant abnormality. Aberrant course of the right subclavian artery. REMAINING CHEST: Medical devices: None. Thyroid: Normal. Lymph nodes: No supraclavicular, axillary, mediastinal, or hilar lymphadenopathy. Other mediastinal structures: No significant abnormality. Lung parenchyma: Moderate patchy right greater than left-sided airspace opacities. Airways: Bronchial wall thickening. Pleura: Trace right pleural effusion. Chest wall: No significant abnormality. Upper abdomen: No significant abnormality. Musculoskeletal: Mild chronic healed bilateral rib fractures. Impression: 1. No acute pulmonary embolism. 2. Moderate patchy [id number]-left areas sided airspace opacities are compatible with multifocal infection. Bronchial wall thickening may represent airways infection or inflammation. Trace right pleural effusion. 3. Small to moderate pericardial effusion. Discharge Plan Discharge Disposition: Home, Self-Care Date of Admission: 12/31/23 16:29 Attending Provider on Discharge: Amairani Rg Primary Care Provider: Carrie Pena Condition: Guarded Anticipated Discharge Date/Time: 01/02/24 11:02 Discharge Medications: New azithromycin 500 mg tablet 500 mg PO DAILY 3 Days Qty: 3 0RF amoxicillin-pot clavulanate 875-125 mg tablet 1 tab PO BID Qty: 10 0RF Continued albuterol sulfate 90 mcg/actuation HFA aerosol inhaler 2 puff inhalation Q4-6H PRN (Reason: shortness of breath or wheezing) Qty: 6.7 0RF albuterol sulfate 2.5 mg /3 mL (0.083 %) solution for nebulization 2.5 mg continuous nebulization Q4H PRN (Reason: cough) montelukast 10 mg tablet 10 mg PO HS quetiapine 100 mg tablet 100 - 200 mg PO HS fluvoxamine 100 mg tablet 100 mg PO BID omeprazole 20 mg Capsule,Delayed Release(Dr/Ec) 20 mg PO BID Qty: 60 2RF acetaminophen [8 Hour Pain Reliever] 650 mg tablet extended release 1,300 mg PO Q12H PRN budesonide 0.5 mg/2 mL suspension for nebulization 0.5 mg inhalation BID cholecalciferol (vitamin D3) 50 mcg (2,000 unit) capsule 50 mcg PO DAILY quetiapine [Seroquel] 25 mg tablet 12.5 mg PO QPM ipratropium-albuterol 0.5 mg-3 mg(2.5 mg base)/3 mL solution for nebulization 3 ml inhalation Q6H PRN (Reason: shortness of breath or wheezing) One A Day Men Complete 240-25-300 mcg tablet 1 tab PO DAILY lorazepam 1 mg tablet 0.25 mg PO TID PRN (Reason: anxiety) Discharge Orders: Discharge Order (Routine); Ordered 01/02/24 Ordered By: Amairani Rg Patient Education: Amoxicillin/Clavulanate Potassium (By mouth), Azithromycin (By mouth), Aspiration Pneumonia (GEN), COVID-19 (Coronavirus Disease 2019) (GEN) Additional Instructions: Continue 2 antibiotics until completed. Continue duonebs 4 times daily and albuterol nebs every 4 hours as needed. Continue to use Aerobika. Continue to use oxygen overnight as needed until CPAP is ordered. It is recommended you have a modified barium swallow study as an outpatient. Activity Level: Activity as Tolerated Follow Up Appointments: Carrie Pena MD [Primary Care Provider] - 01/08/24 2:40 pm ([facility] for follow-up.) Forms: [employer] Info Instructions
--- NOTE | 2024-01-02 14:27 | PC.NURSE ---
The patient discharged home with one of his primary caregivers. All discharge information was sent and reviewed with the primary caregiver. IV was removed. Educated regarding probiotic use while taking antibiotic and risk for upset stomach and diarrhea. Home oxygen was sent with the patient as well. Carolyn LOUIS BSN
[2024-01-02 18:54] LABS: Folate, Serum >22.3 ng/mL (>=5.9)
== END 2024-01-02 13:30 | disposition home or self-care (01) | DRG 177 ==
LOC: ED 12:53 → MEDSURG 15:03
PROVIDERS: Physician Assistant; Admitting Provider Family Medicine; Emergency Provider Family Medicine; PCP Family Medicine; Visit Provider Family Medicine
DX: U07.1 COVID-19 (principal); J69.0 Pneumonitis due to inhalation of food and vomit; J96.01 Acute respiratory failure with hypoxia; G47.33 Obstructive sleep apnea (adult) (pediatric); D64.9 Anemia, unspecified; Q90.9 Down syndrome, unspecified; K90.0 Celiac disease; G31.09 Other frontotemporal neurocognitive disorder; F02.80 Dementia in other diseases classified elsewhere, unspecified severity, without behavioral disturbance, psychotic disturbance, mood disturbance, and anxiety; F32.9 Major depressive disorder, single episode, unspecified
CPT/HCPCS: 36415; 71046; 71275; 80048; 82607; 82746; 83540; 83550; 83605; 83880; 84484; 85025; 85027; 85379; 85610; 85730; 86140; 87040; 92610; 93005; 93306; 94664; 94761; 99284; 99285; A9153; A9270; J2543; J7030; J7050; J7626; Q9967

== ENCOUNTER 2024-02-21 11:21 | Inpatient (IN) | payer MEDICARE, MEDICAID, SELFPAY ==
[2024-02-21] VITALS (34 sets, daily range): BP systolic 95–127; BP diastolic 61–83; PULSE 92–108; RESP 16–24; TEMP 36.4–38.4; O2SAT 89–98; BMI 36.6
--- NOTE | 2024-02-21 11:40 | ED_ITS ---
HPI - General Adult General Time Seen by Provider: 11:40 Date Seen: 02/21/24 Chief complaint: Fever Stated complaint: oxygen is at 3 liters, was at 80 when he woke up Time Seen by Provider: 02/21/24 11:25 Source: patient, RN notes reviewed and old records reviewed Mode of arrival: ambulatory Limitations: no limitations History of Present Illness HPI narrative: This 43-year-old male with underlying Down syndrome, severe obstructive sleep apnea, COVID with hypoxia and hospitalization December 30 through January 01, history of recurrent aspiration pneumonia is coming in with fever starting yesterday, has been 101. He got extended release Tylenol this morning around 830. He has had coarse sound in cough. He has been using intermittent oxygen since his hospitalization in December but not all the time. This morning he was in the 80s when he woke up, has been on 3 L nasal cannula oxygen since then consistently. They note he has had recent antibiotic use. He did start was Zosyn in the hospital in December, was discharged on Augmentin and ZPak. He reportedly was given a Z-Isael on January 30 in clinic. On February 04 on clinic follow-up he was given Augmentin 875 mg b.i.d. for 7 days and then a prednisone taper with 30 mg for 2 days, 20 mg for 2 days and 10 mg for 2 days. They note his appetite is fine. They have no other concerns about any definitive source of infection. He did undergo a sleep study with Dr. Espinoza in December and showed severe sleep apnea with marked hypoxemia. They are using CPAP, they note that it is not always giving a great tight seal. Related Data Home Medications ?Medication ?Instructions ?Recorded ?Confirmed lorazepam 1 mg tablet 0.25 mg PO TID PRN anxiety 04/17/23 02/21/24 multivit,calcium,min-folic acid 1 tab PO DAILY 04/17/23 02/21/24 240 mcg-D3 25 mcg-lycop 300 mcg tablet (One A Day Men Complete) fluvoxamine 100 mg tablet 100 mg PO BID 06/30/23 02/21/24 quetiapine 100 mg tablet 300 mg PO HS 06/30/23 02/21/24 albuterol sulfate 2.5 mg/3 mL 2.5 mg continuous nebulization Q4H 12/13/23 02/21/24 (0.083 %) solution for nebulization PRN cough montelukast 10 mg tablet 10 mg PO HS 12/13/23 02/21/24 acetaminophen 650 mg 1,300 mg PO Q12H PRN 12/31/23 02/21/24 tablet,extended release (8 Hour Pain Reliever) budesonide 0.5 mg/2 mL suspension 0.5 mg inhalation BID 12/31/23 02/21/24 for nebulization cholecalciferol (vitamin D3) 50 50 mcg PO DAILY 12/31/23 02/21/24 mcg (2,000 unit) capsule ipratropium 0.5 mg-albuterol 3 mg 3 ml inhalation Q6H PRN shortness 12/31/23 02/21/24 (2.5 mg base)/3 mL nebulization of breath or wheezing soln quetiapine 25 mg tablet (Seroquel) 12.5 mg PO QPM 12/31/23 02/21/24 budesonide 1 inh inhalation BID 02/21/24 02/21/24 gabapentin 300 mg capsule 300 mg PO TID 02/21/24 02/21/24 Previous Rx's ?Medication ?Instructions ?Recorded albuterol sulfate 90 mcg/actuation 2 puff inhalation Q4-6H PRN 06/05/23 aerosol inhaler shortness of breath or wheezing #6.7 grams omeprazole 20 mg capsule,delayed 20 mg PO BID #60 caps 07/02/23 release Allergies Allergy/AdvReac Type Severity Reaction Status Date / Time gluten Allergy Verified 02/21/24 12:29 Review of Systems Status of ROS: Reports: 6 or more systems reviewed and unremarkable except as noted in History and below [facility] Medical History Frontotemporal dementia ?G31.09 - Other frontotemporal neurocognitive disorder (ICD-10) ?F02.80 - Dementia in other diseases classified elsewhere, unspecified severity, without behavioral disturbance, psychotic disturbance, mood disturbance, and anxiety (ICD-10) Duodenal ulcer ?K26.9 - Duodenal ulcer, unspecified as acute or chronic, without hemorrhage or perforation (ICD-10) Obstructive sleep apnea ?G47.33 - Obstructive sleep apnea (adult) (pediatric) (ICD-10) Chronic back pain ?M54.9 - Dorsalgia, unspecified (ICD-10) ?G89.29 - Other chronic pain (ICD-10) Aspiration pneumonitis ?J69.0 - Pneumonitis due to inhalation of food and vomit (ICD-10) Pneumonia ?J18.9 - Pneumonia, unspecified organism (ICD-10) History of aspiration pneumonia ?Z87.01 - Personal history of pneumonia (recurrent) (ICD-10) Major depressive disorder ?F32.9 - Major depressive disorder, single episode, unspecified (ICD-10) Obsessive compulsive disorder ?F42.9 - Obsessive-compulsive disorder, unspecified (ICD-10) Celiac disease ?K90.0 - Celiac disease (ICD-10) Down syndrome ?Q90.9 - Down syndrome, unspecified (ICD-10) Surgical History (Updated 12/31/23 @ 21:37 by Octavia Gonzalez MD) H/O esophagogastroduodenoscopy ?Z98.890 - Other specified postprocedural states (ICD-10) H/O umbilical hernia repair ?Z98.890 - Other specified postprocedural states (ICD-10) ?Z87.19 - Personal history of other diseases of the digestive system (ICD-10) History of tympanoplasty ?Z98.890 - Other specified postprocedural states (ICD-10) Family History Maternal Grandfather Leukemia Maternal Grandmother Colon cancer Social History (Updated 12/31/23 @ 21:37 by Octavia Gonzalez MD) Narrative: He lives with his parents and there 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 He does not smoke or drink alcohol. What is your current living situation?: I presently have a place to live Problems where you live: no known problems Problems where you live details: NA In the past 12 months, utilities in danger of being shut off: no In past 12 months, lack of transportation kept you from medical appts, meetings, work, or getting things needed for daily living: no In the past 12 mos, have been you worried that your food would run out before you had money to buy more?: never true In the past 12 mos, the food you bought just didn't last and you didn't have mon ey to buy more?: never true Highest level of school completed/degree received: high school graduate Smoking Status: Never smoker How often do you have a drink containing alcohol: never How often do you have six or more drinks on one occasion: Never AUDIT-C Alcohol total score: 0 Non-prescribed substance use: denies use Caffeine: No How often does anyone, including family, friends and others, physically hurt you : unable to answer How often does anyone, including family, friends and others, insult or talk down to you: unable to answer How often does anyone, including family, friends and others, threaten you with harm: unable to answer How often does anyone, including family, friends and others, scream or curse at you: unable to answer service: No Exam Const: Vital Signs, click to edit/add: Vital Signs - 24 hr 02/21/24 11:38 02/21/24 11:39 02/21/24 11:40 Temperature 101.2 F H Pulse Rate 103 H 105 H Pulse Rate [Pulse Oximeter] 105 H Respiratory Rate 22 Blood Pressure 95/61 Blood Pressure [Ri ght Upper Arm] 95/61 Pulse Oximetry 90 92 91 Oxygen Delivery Me thod OxyMask [place] Nasal Ca nnula Nasal Cannula Oxygen Flow Rate 2 2 2 02/21/24 11:45 02/21/24 11:48 02/21/24 11:50 Temperature Pulse Rate 101 H Pulse Rate [Pulse Oximeter] Respiratory Rate Blood Pressure Blood Pressure [Ri ght Upper Arm] Pulse Oximetry 94 95 98 Oxygen Delivery Me thod OxyMask OxyMask Oxygen Flow Rate 3 02/21/24 12:00 02/21/24 12:26 02/21/24 12:30 Temperature Pulse Rate 106 H 101 H 101 H Pulse Rate [Pulse Oximeter] Respiratory Rate Blood Pressure Blood Pressure [Ri ght Upper Arm] Pulse Oximetry 96 95 93 Oxygen Delivery Me thod OxyMask OxyMask OxyMask Oxygen Flow Rate 02/21/24 12:37 02/21/24 12:45 02/21/24 13:00 Temperature Pulse Rate 100 100 108 H Pulse Rate [Pulse Oximeter] Respiratory Rate Blood Pressure 121/83 Blood Pressure [Ri ght Upper Arm] Pulse Oximetry 94 96 92 Oxygen Delivery Me thod OxyMask OxyMask Oxygen Flow Rate 3 02/21/24 13:03 02/21/24 13:15 02/21/24 13:30 Temperature Pulse Rate 102 H 96 99 Pulse Rate [Pulse Oximeter] Respiratory Rate Blood Pressure 114/75 Blood Pressure [Ri ght Upper Arm] Pulse Oximetry 94 95 93 Oxygen Delivery Me thod OxyMask OxyMask OxyMask Oxygen Flow Rate 3 3 3 02/21/24 13:31 02/21/24 13:32 02/21/24 13:45 Temperature Pulse Rate 101 H 105 H 105 H Pulse Rate [Pulse Oximeter] Respiratory Rate 22 Blood Pressure 103/72 Blood Pressure [Ri ght Upper Arm] Pulse Oximetry 93 95 92 Oxygen Delivery Me thod OxyMask Oxygen Flow Rate 3 02/21/24 14:00 02/21/24 14:02 02/21/24 14:15 Temperature Pulse Rate 101 H 104 H 101 H Pulse Rate [Pulse Oximeter] Respiratory Rate Blood Pressure 106/63 Blood Pressure [Ri ght Upper Arm] Pulse Oximetry 94 93 93 Oxygen Delivery Me thod Oxygen Flow Rate 02/21/24 14:30 02/21/24 14:31 Temperature Pulse Rate 100 101 H Pulse Rate [Pulse Oximeter] Respiratory Rate Blood Pressure 114/72 Blood Pressure [Ri ght Upper Arm] Pulse Oximetry 95 92 Oxygen Delivery Me thod Oxygen Flow Rate Blood pressures on the lower side today when I look back in his records. He is alert, interactive. He is not coughing. Looks somewhat pale but this honestly is how I remember him from prior visits. Sclera clear. Speech is clear, seems to be a baseline. Neck is thick, note no masses, cannot appreciate any jugular venous distension but might be difficult to ascertain. He has coarse lung sounds but no wheezing or underlying crackles heard. He is not tachypneic. Underlying heart sounds could be heard, hear no murmur, normal S1-S2, no S3-S4. Abdomen is soft, no rebound or guarding, no tenderness, no masses, no organomegaly noted. He is moving extremities, skin without rash. Documenting provider has reviewed patient's vital signs: yes Course Course ED Course: This 43-year-old male has worsening hypoxia, fever. This most definitely is recurrent respiratory infection, has certainly coarse lung sounds. Have discussed that we probably should just proceed with chest CT imaging, would do PE protocol given his recent COVID. Will redo the viral testing, will do the COVID antigen as it is possible the COVID PCR still could show potential viral pathogen in the airway. Reviewed with them that the antigen will let us know if he is still shedding or not. Blood culture will be done, full complement of labs. This really seems like it is probably respiratory in focus, can expand if we are not finding etiology. Will give him a L of fluids and see how he responds. Did go on up-to-date in review current guidelines. He has had recent hospitalization, multiple rounds of antibiotics. I do think this increases his risk for MRSA, will initiate vancomycin in this antibiotic regimen. I have also ordered Zosyn. He will likely need a atypical agent and will talk to the hospitalist. Not sure if they really want to go with azithromycin again, might consider doxycycline. Reevaluation(s) Time of Reevaluation #1: 13:49 Reevaluation #1: Patient complaining of some leg and back pain, did have extra-strength Tylenol around 830 this morning. Still has his fever, will try some IV Toradol. We will hopefully be talking to the hospitalist shortly about admission. Consultations Consultation #1: Have spoken with hospitalist Dr. Roberto. She accepts the patient. Discussed antibiotics such as using doxycycline or not other atypical agent, she will decide on this. No steroids at this point either. Time: 15:06 Vital Signs Vital signs: Initial Vital Signs Temperature 101.2 F H 02/21/24 11:38 Temperature Source Temporal Artery Scan 02/21/24 11:38 Pulse Rate 105 H 02/21/24 11:38 Respiratory Rate 22 02/21/24 11:38 Blood Pressure 95/61 02/21/24 11:38 Blood Pressure Mean 72 02/21/24 11:38 Blood Pressure Position Semi-Fowlers 02/21/24 11:38 Pulse Oximetry 90 02/21/24 11:38 Oxygen Delivery Method OxyMask 02/21/24 11:38 Oxygen Flow Rate 2 02/21/24 11:38 Vital Signs Temperature 101.2 F H 02/21/24 11:38 Pulse Rate 105 H 02/21/24 11:38 Respiratory Rate 22 02/21/24 11:38 Blood Pressure 95/61 02/21/24 11:38 Pulse Oximetry 90 02/21/24 11:38 Oxygen Delivery Method OxyMask 02/21/24 11:38 Oxygen Flow Rate 2 02/21/24 11:38 Temperature 101.2 F H 02/21/24 11:38 Pulse Rate 101 H 02/21/24 14:31 Respiratory Rate 22 02/21/24 13:31 Blood Pressure 114/72 02/21/24 14:31 Pulse Oximetry 92 02/21/24 14:31 Oxygen Delivery Method OxyMask 02/21/24 13:31 Oxygen Flow Rate 3 02/21/24 13:31 Medications Administered Medications: Generic Name Dose Route Start Last Admin Trade Name Freq PRN Reason Stop Dose Admin Sodium Chloride 1,000 mls @ 500 mls/hr 02/21/24 13:42 02/21/24 13:56 0.9 % Sodium Chloride 1000 Ml IV 02/21/24 15:41 500 mls/hr .Q2H ANIBAL Administration Discontinued Medications Generic Name Dose Route Start Last Admin Trade Name Freq PRN Reason Stop Dose Admin Sodium Chloride 1,000 mls @ 1,000 mls/hr 02/21/24 11:51 02/21/24 13:27 0.9 % Sodium Chloride 1000 Ml IV 02/21/24 12:50 Infused .Q1H ANIBAL Infusion Piperacillin Sod/Tazobactam 100 mls @ 200 mls/hr 02/21/24 12:25 02/21/24 13: 27 Sod 3.375 gm/ Sodium Chloride IVPB 02/21/24 12:26 Infused ONCE ONE Infusion Vancomycin/PEG/NADA/Lysine/Water 1.75 gm in 350 mls @ 200 mls/hr 02/21/24 13:00 02/21/24 13:27 Vancomycin 1.75 Gm/350 Ml IVPB 02/21/24 14:44 200 mls/hr ONCE ONE Administration Protocol Medical Decision Making Lab Data Lab results reviewed: Yes I reviewed the patient's lab results Lab results narrative: His hemoglobin seems to be stable from last hospitalization. D-dimer is still mildly elevated. His procalcitonin is just borderline, C reactive protein is elevated but down from his hospitalization in December. Labs: Lab Results 02/21/24 02/21/24 Range/Units 12:05 12:20 WBC 9.48 (4.50-11.00) K/uL RBC 3.55 L (4.30-5.90) m/uL Hgb 9.4 L (13.5-17.5) gm/dL Hct 30.6 L (37.0-53.0) % MCV 86 (80-100) fL MCH 27 (26-34) pg MCHC 31 L (32-36) gm/dL RDW Coeff of [place] 21.3 H (11.5-15.5) % Plt Count 273 (140-440) K/uL Neut % (Auto) 88.3 H (42.0-72.0) % Lymph % (Auto) 5.5 L (20-44) % [place] % (Auto) 5.0 (0.0-11.0) % Eos % (Auto) 0.5 (0.0-7.0) % Baso % (Auto) 0.5 (0.0-3.0) % Neut # (Auto) 8.40 H (1.7-7.0) K/uL Lymph # (Auto) 0.50 L (0.90-2.90) K/uL [place] # (Auto) 0.50 (0.00-0.90) K/UL Eos # (Auto) 0.05 (0.00-0.50) K/uL Baso # (Auto) 0.05 (0.00-0.30) K/uL Abs Immat Gran (auto) 0.02 (0.00-0.30) K/uL Imm/Tot Granulo (auto) 0.2 % D-Dimer Quant (PE/DVT) 1.34 H (0.00-0.50) ug/ml VBG pH 7.412 (7.32-7.43) VBG pCO2 47 (40-50) mmHG VBG pO2 71.7 H (25-47) mmHG VBG HCO3 30 H (21-28) mmol/L Sodium 135 (135-149) mmol/L Potassium 3.9 (3.6-5.1) mmol/L Chloride 103 (96-114) mmol/L Carbon Dioxide 25 (20-32) mmol/L Anion Gap 7 (7-15) mEq/L BUN 12 (5-24) mg/dL Creatinine 0.5 (0.5-1.5) mg/dL Estimated GFR 129 ml/min Glucose 79 (60-115) mg/dL Lactate 1.2 (0.5-1.9) mmol/L Calcium 7.1 L (8.4-10.6) mg/dL Total Bilirubin 0.3 (0.1-1.5) mg/dL AST 48 H (12-35) U/L ALT 40 (4-50) U/L Alkaline Phosphatase 59 (40-150) U/L Troponin I < 0.01 L (0.01-0.04) ng/mL C-Reactive Protein 12.6 H (0.5-1.0) mg/dL NT-Pro-B Natriuret Pep 26 pg/mL Total Protein 6.2 (6.0-8.3) g/dL Albumin 3.3 (3.3-5.0) g/dL Procalcitonin 0.25 (<0.50) ng/mL SARS-CoV-2 (PCR) Negative SARS-CoV-2 (Negative) Influenza Type A (PCR) Negative PCR FLU A (Negative) Influenza Type B (PCR) Negative PCR FLU B (Negative) RSV (PCR) Negative PCR RSV (Negative) SARS-CoV-2 Ag (Rapid) Negative (Negative) Imaging Data CT scan - chest: Attestation: I have reviewed the pertinent imaging results. Radiologist's impression: Patient: ENEDELIA KEENAN Facility:?[facility] Patient ID:?[id number] Site Patient ID:?[id number]. Site :?[id number] Study:?CT-Chest Angio PE 95CC ISOVUE 370-02/21/2024 12:33:25 PM Ordering Physician:Desiree Chavez Final Report: Indication: WORSENING HYPOXIA, FEVER, RECENT COVID Technique: CTA chest, pulmonary embolism protocol, utilizing 95 mL Isovue 370 Comparison: CTA chest on January 10, 2024 Findings: CARDIOVASCULAR: Diagnostic quality: Contrast opacification of the pulmonary arterial circulation is adequate for assessment of pulmonary embolism. Study is not significantly limited by respiratory motion artifact. Pulmonary arteries: No filling defects to suggest pulmonary embolism. Not enlarged. Regions of decreased attenuation in the distal segmental and subsegmental pulmonary arteries are favored to represent contrast mixing artifact, similar in appearance compared to prior exam. Heart: Normal in size with no CT evidence of right heart strain. No significant coronary artery calcification. No significant valvular calcification. Pericardium: Small to moderate pericardial effusion, stable. Thoracic aorta: No significant abnormality. Aberrant course of the right subclavian artery. REMAINING CHEST: Thyroid: Normal. Lymph nodes: No lymphadenopathy. Other mediastinal structures: No significant abnormality. Lung parenchyma: Improvement in previously visualized bilateral moderate patchy airspace opacities with some persistent opacities seen in the bilateral upper and right middle and lower lobes with some atelectatic changes seen in the medial and basilar aspect of the left lower lobe. Airways: Bronchial wall thickening. Pleura: Trace right pleural effusion. Chest wall: No significant abnormality. Upper abdomen: No significant abnormality. Musculoskeletal: No acute abnormality. Remote, healed rib fractures. Impression: 1. No pulmonary embolism. 2. Improvement in previously visualized bilateral moderate patchy airspace opacities with some persistent opacities seen bilaterally and some atelectatic changes seen in the left lung base. 3. Stable pericardial effusion. Please note that all CT scans at this facility use dose modulation, iterative reconstruction, and/or weight-based dosing when appropriate to reduce radiation dose to as low as reasonably achievable. Dictated by Nico Smith MD @ 02/21/2024 12:45:56 PM (Electronic Signature) ECG Data Attestation: I personally reviewed and interpreted this ECG as follows: (Sinus tachycardia, 103 beats per minute. No definitive ischemic change, no infarct noted.) Prior ECG tracings: available for review Discharge Plan Discharge Clinical Impression: Hypoxia Pneumonia Qualifiers: Pneumonia type: due to unspecified organism Laterality: bilateral Lung location: unspecified part of lung Qualified Code(s): J18.9 - Pneumonia, unspecified organism Fever Qualifiers: Fever type: unspecified Qualified Code(s): R50.9 - Fever, unspecified Prescriptions: No Action albuterol sulfate 90 mcg/actuation HFA aerosol inhaler 2 puff inhalation Q4-6H PRN (Reason: shortness of breath or wheezing) Qty: 6.7 0RF albuterol sulfate 2.5 mg /3 mL (0.083 %) solution for nebulization 2.5 mg continuous nebulization Q4H PRN (Reason: cough) montelukast 10 mg tablet 10 mg PO HS quetiapine 100 mg tablet 300 mg PO HS fluvoxamine 100 mg tablet 100 mg PO BID omeprazole 20 mg Capsule,Delayed Release(Dr/Ec) 20 mg PO BID Qty: 60 2RF acetaminophen [8 Hour Pain Reliever] 650 mg tablet extended release 1,300 mg PO Q12H PRN budesonide 0.5 mg/2 mL suspension for nebulization 0.5 mg inhalation BID cholecalciferol (vitamin D3) 50 mcg (2,000 unit) capsule 50 mcg PO DAILY quetiapine [Seroquel] 25 mg tablet 12.5 mg PO QPM ipratropium-albuterol 0.5 mg-3 mg(2.5 mg base)/3 mL solution for nebulization 3 ml inhalation Q6H PRN (Reason: shortness of breath or wheezing) One A Day Men Complete 240-25-300 mcg tablet 1 tab PO DAILY lorazepam 1 mg tablet 0.25 mg PO TID PRN (Reason: anxiety) gabapentin 300 mg capsule 300 mg PO TID budesonide [Pulmicort] 1 inh inhalation BID Follow Up/Referrals: Carrie Pena MD [Primary Care Provider] -
--- NOTE | 2024-02-21 11:48 | CRLHL7_ITS ---
For Patients: As a result of the Century Cures Act, medical imaging exams and procedure reports are released immediately into your electronic medical record. You may view this report before your referring provider. If you have questions, please contact your health care provider. Indication: WORSENING HYPOXIA, FEVER, RECENT COVID Technique: CTA chest, pulmonary embolism protocol, utilizing 95 mL Isovue 370 Comparison: CTA chest on January 10, 2024 Findings: CARDIOVASCULAR: Diagnostic quality: Contrast opacification of the pulmonary arterial circulation is adequate for assessment of pulmonary embolism. Study is not significantly limited by respiratory motion artifact. Pulmonary arteries: No filling defects to suggest pulmonary embolism. Not enlarged. Regions of decreased attenuation in the distal segmental and subsegmental pulmonary arteries are favored to represent contrast mixing artifact, similar in appearance compared to prior exam. Heart: Normal in size with no CT evidence of right heart strain. No significant coronary artery calcification. No significant valvular calcification. Pericardium: Small to moderate pericardial effusion, stable. Thoracic aorta: No significant abnormality. Aberrant course of the right subclavian artery. REMAINING CHEST: Thyroid: Normal. Lymph nodes: No lymphadenopathy. Other mediastinal structures: No significant abnormality. Lung parenchyma: Improvement in previously visualized bilateral moderate patchy airspace opacities with some persistent opacities seen in the bilateral upper and right middle and lower lobes with some atelectatic changes seen in the medial and basilar aspect of the left lower lobe. Airways: Bronchial wall thickening. Pleura: Trace right pleural effusion. Chest wall: No significant abnormality. Upper abdomen: No significant abnormality. Musculoskeletal: No acute abnormality. Remote, healed rib fractures. Impression: 1. No pulmonary embolism. 2. Improvement in previously visualized bilateral moderate patchy airspace opacities with some persistent opacities seen bilaterally and some atelectatic changes seen in the left lung base. 3. Stable pericardial effusion. Please note that all CT scans at this facility use dose modulation, iterative reconstruction, and/or weight-based dosing when appropriate to reduce radiation dose to as low as reasonably achievable. Dictated by Nico Simth MD @ 02/21/2024 12:45:56 PM (Electronically Signed)
[2024-02-21] MEDS: 0.9 % SODIUM CHLORIDE 1000 ml 1,000 ML IV (12:08)
[2024-02-21 12:22] LABS: Basophils Absolute Auto 0.05 K/uL (0.00-0.30); Basophils Percent Auto 0.5 % (0.0-3.0); Eosinophils Absolute Auto 0.05 K/uL (0.00-0.50); Eosinophils Percent Auto 0.5 % (0.0-7.0); Hematocrit 30.6 % (37.0-53.0); Hemoglobin* 9.4 gm/dL (13.5-17.5); Immature Granulocytes Abs Auto 0.02 K/uL (0.00-0.30); Immature Granulocytes Pct Auto 0.2 %; Lymphocytes Percent Auto 5.5 % (20-44); Mean Corpuscular HGB Conc 31 gm/dL (32-36); Mean Corpuscular Hemoglobin 27 pg (26-34); Mean Corpuscular Volume 86 fL (80-100); Neutrophils Percent Auto 88.3 % (42.0-72.0); Platelet Count* 273 K/uL (140-440); RDW Coefficient of Variation % 21.3 % (11.5-15.5); Red Blood Count 3.55 m/uL (4.30-5.90); White Blood Count* 9.48 K/uL (4.50-11.00)
[2024-02-21 12:29] LABS: HCO3 VBG 30 mmol/L (21-28); Lactate* 1.2 mmol/L (0.5-1.9); PCO2 VBG 47 mmHG (40-50); PO2 VBG 71.7 mmHG (25-47); pH VBG 7.412 (7.32-7.43)
[2024-02-21 12:30] LABS: Slide Review Reflex No
[2024-02-21 12:42] LABS: Albumin* 3.3 g/dL (3.3-5.0); Chloride* 103 mmol/L (96-114); Potassium* 3.9 mmol/L (3.6-5.1); Sodium* 135 mmol/L (135-149)
[2024-02-21 12:44] LABS: Bilirubin Total* 0.3 mg/dL (0.1-1.5); Creatinine* 0.5 mg/dL (0.5-1.5); Estimated Glomerular Filt Rate 129 ml/min
[2024-02-21 12:45] LABS: Alanine Aminotransferase* 40 U/L (4-50); Alkaline Phosphatase* 59 U/L (40-150); Anion Gap 7 mEq/L (7-15); Aspartate Amino Transferase* 48 U/L (12-35); Blood Urea Nitrogen* 12 mg/dL (5-24); Calcium* 7.1 mg/dL (8.4-10.6); Carbon Dioxide* 25 mmol/L (20-32); Glucose* 79 mg/dL (60-115); Total Protein* 6.2 g/dL (6.0-8.3)
[2024-02-21] MEDS: PIPERACILLIN/TAZOBACTAM 3.375 GM in 0.9 % SODIUM CHLORIDE Mini-bag 100 ML IVPB (12:54)
[2024-02-21 12:58] LABS: SARS Antigen* Negative (Negative)
[2024-02-21 12:59] LABS: C Reactive Protein* 12.6 mg/dL (0.5-1.0); NT Pro B Type NatriureticPept* 26 pg/mL; Troponin I* < 0.01 ng/mL (0.01-0.04)
[2024-02-21 13:00] LABS: D Dimer Quantitative* 1.34 ug/ml (0.00-0.50)
[2024-02-21 13:02] LABS: Procalcitonin* 0.25 ng/mL (<0.50)
[2024-02-21 13:07] LABS: PCR FLU A Negative PCR FLU A (Negative); PCR FLU B Negative PCR FLU B (Negative); PCR RSV Negative PCR RSV (Negative); SARS PCR* Negative SARS-CoV-2 (Negative)
[2024-02-21] MEDS: VANCOMYCIN 1.75 GM/350 ML 1.75 GM/350 ML PIGGYBACK IVPB (13:27)
[2024-02-21] MEDS: 0.9 % SODIUM CHLORIDE 1000 ml 1,000 ML 500 ML IV (13:56)
[2024-02-21] MEDS: KETOROLAC 15 MG/ML inj IVP (15:28)
--- NOTE | 2024-02-21 18:39 | P.IMHP_ITS ---
Hospitalist- H&P: HPI History of Present Illness Date Seen: 02/21/24 Chief complaint: oxygen is at 3 liters, was at 80 when he woke up Narrative: ADMISSION HISTORY AND PHYSICAL - HOSPITALIST Chief Complaint: Fever, congested cough HPI: 43-year-old trisomy 21 male with a history of recurrent pneumonia, severe ELY, obesity, obsessive-compulsive disorder and celiac presents to the emergency room with worsening cough, fever and hypoxia. 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 They noted his O2 sats to be in the low to mid 80s and fever to 99-100. He seemed listless getting up this morning. He was brought into the emergency room for further evaluation. He has had multiple emergency room/urgent care/primary care visits over the last year. He was last hospitalized in December with aspiration pneumonia and COVID. He has had multiple rounds of antibiotics. He has been diagnosed with obstructive sleep apnea, severe. He has had appropriate follow-up with sleep medicine and is wearing a CPAP with moderate success. At his admission in December he did have a bedside swallow evaluation. A full fluoroscopic swallow eval was recommended as an outpatient. His parents have not followed up on this as they feel changing his diet would be a significant quality of life issue with minimal JUAN. He does remain full code and has extremely attentive family. He sees Carrie [facility]arro in the [facility]. Antibiotics in the last 6 months: 02/05/2024 Augmentin 875 mg x7 days (with prednisone) 01/31/2024 Zithromax Z-Isael 01/02/2024 azithromycin and Augmentin at discharge December of 2023 admission: Zosyn 12/15/2023 Ceftin x7 days plus doxycycline x7 days 12/13/2023 Ceftin and doxycycline 10/04/2023 azithromycin and amoxicillin 07/02/2023 clarithromycin (as part of duodenal ulcer tx) ER COURSE: CODE STATUS: FULL CODE EMERGENCY CONTACT PLAN: Savanah Hatch Rel To Pat Mother Cell I've updated the PFSH, medications and allergies in the Expanse tabs. INVESTIGATIONS: LABS/MICRO/ECG/IMAGING Arrival temperature 101.2? F, current temperature 97.5? F Normotensive 127/75 Pulse in the mid 90s as high as 105 this morning Pulse ox 88-90 % on 3 L OxyMask Respiratory rate 16 to 24, unlabored White blood cell count normal. His anemia is at his baseline Normal platelets. Blood gas is reassuring. No elevation in his CO2. His bicarb is 30. His electrolytes are normal, normal renal function, normal sugar. His lactate is normal. CRP is moderately elevated at 12.6. His troponin is undetectable. Procalcito fausto is normal. BNP normal. Negative COVID, negative rapid antigen. Negative flu. Negative RSV. CTA 1. No pulmonary embolism. 2. Improvement in previously visualized bilateral moderate patchy airspace opacities with some persistent opacities seen bilaterally and some atelectatic changes seen in the left lung base. 3. Stable pericardial effusion. REVIEW OF SYSTEMS: 12-point ROS completed with patient and negative unless otherwise stated in HPI or below. PHYSICAL EXAM: CONSTITUTIONAL: agreeable, comfortable. no air hunger. answers yes to most questions; repeats me. SITE AUDITOR bedside. VITAL SIGNS: see record. HEENT: Normocephalic, atraumatic. PERRL, EOMI, conjunctivae pink, no scleral icterus. Ears and nose externally normal. Pharynx normal. NECK: No JVD. No carotid bruit, no thyromegaly, no adenopathy. CHEST: bilateral rhonchi. no wheezes. HEART: S1 and S2 normal. No harsh murmurs. MUSCULOSKELETAL: No gross joint deformity or swelling. NEURO: Cranial nerves intact. Grossly intact. No asymmetric findings. SKIN: No rashes, petechiae, concerning changes PSYCHIATRIC: Euthymic. ADMIT TO MEDSURG: FLOOR CARE DVT: SCDs; ambulation GI: PO intake Time spent: Today I spent 75 minutes seeing the patient, discussing the patient with ER staff, reviewing Expanse and EPIC notes/diagnostics, discussing the care plan with our care time that includes social work, PT/OT, pharmacy, RT, [place] [facility] and documenting my impressions and plan in the medical record. [facility] Medical History (Updated 02/21/24 @ 19:14 by Brooklyn Roberto MD) Trisomy 21 ?Q90.9 - Down syndrome, unspecified (ICD-10) Recurrent aspiration pneumonia ?J69.0 - Pneumonitis due to inhalation of food and vomit (ICD-10) Frontotemporal dementia ?G31.09 - Other frontotemporal neurocognitive disorder (ICD-10) ?F02.80 - Dementia in other diseases classified elsewhere, unspecified severity, without behavioral disturbance, psychotic disturbance, mood disturbance, and anxiety (ICD-10) Duodenal ulcer ?K26.9 - Duodenal ulcer, unspecified as acute or chronic, without hemorrhage or perforation (ICD-10) Obstructive sleep apnea ?G47.33 - Obstructive sleep apnea (adult) (pediatric) (ICD-10) Chronic back pain ?M54.9 - Dorsalgia, unspecified (ICD-10) ?G89.29 - Other chronic pain (ICD-10) Pneumonia ?J18.9 - Pneumonia, unspecified organism (ICD-10) Major depressive disorder ?F32.9 - Major depressive disorder, single episode, unspecified (ICD-10) Obsessive compulsive disorder ?F42.9 - Obsessive-compulsive disorder, unspecified (ICD-10) Celiac disease ?K90.0 - Celiac disease (ICD-10) Surgical History (Updated 12/31/23 @ 21:37 by Octavia Gonzalez MD) H/O esophagogastroduodenoscopy ?Z98.890 - Other specified postprocedural states (ICD-10) H/O umbilical hernia repair ?Z98.890 - Other specified postprocedural states (ICD-10) ?Z87.19 - Personal history of other diseases of the digestive system (ICD-10) History of tympanoplasty ?Z98.890 - Other specified postprocedural states (ICD-10) Family History Maternal Grandfather Leukemia Maternal Grandmother Colon cancer Social History (Updated 12/31/23 @ 21:37 by Octavia Gonzalez MD) Narrative: He lives with his parents and there is a personal attendant, 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 He does not smoke or drink alcohol. What is your current living situation?: I presently have a place to live Problems where you live: no known problems Problems where you live details: N/A In the past 12 months, utilities in danger of being shut off: no In past 12 months, lack of transportation kept you from medical appts, meetings, work, or getting things needed for daily living: no In the past 12 mos, have been you worried that your food would run out before you had money to buy more?: never true In the past 12 mos, the food you bought just didn't last and you didn't have money to buy more?: never true Highest level of school completed/degree received: high school graduate Smoking Status: Never smoker How often do you have a drink containing alcohol: never How often do you have six or more drinks on one occasion: Never AUDIT-C Alcohol total score: 0 Non-prescribed substance use: denies use Caffeine: No How often does anyone, including family, friends and others, physically hurt you : never How often does anyone, including family, friends and others, insult or talk down to you: never How often does anyone, including family, friends and others, threaten you with harm: never How often does anyone, including family, friends and others, scream or curse at you: never service: No Meds Home Medications and Allergies Home Medications ?Medication ?Instructions ?Recorded ?Confirmed ?Type lorazepam 1 mg tablet 0.25 mg PO TID PRN anxiety 04/17/23 02/21/24 History fluvoxamine 100 mg tablet 100 mg PO BID 06/30/23 02/21/24 History albuterol sulfate 2.5 mg/3 mL 2.5 mg inhalation Q4H PRN cough 12/13/23 02/21/24 History (0.083 %) solution for nebulization montelukast 10 mg tablet 10 mg PO HS 12/13/23 02/21/24 History acetaminophen 650 mg 1,300 mg PO BID 12/31/23 02/21/24 History tablet,extended release (8 Hour Pain Reliever) budesonide 0.5 mg/2 mL suspension 0.5 mg inhalation BID 12/31/23 02/21/24 History for nebulization cholecalciferol (vitamin D3) 50 50 mcg PO DAILY 12/31/23 02/21/24 History mcg (2,000 unit) capsule Lactobacillus acidophilus 10 10,000 mmu cells PO DAILY 02/21/24 02/21/24 History billion cell capsule (Probiotic) gabapentin 300 mg capsule 900 mg PO HS 02/21/24 02/21/24 History quetiapine 300 mg tablet 300 mg PO HS 02/21/24 02/21/24 History Allergies Allergy/AdvReac Type Severity Reaction Status Date / Time gluten Allergy Verified 02/21/24 12:29 Exam Const: Vital Signs, click to edit/add: Vital Signs - 24 hr 02/21/24 11:38 02/21/24 11:39 02/21/24 11:40 Temperature 101.2 F H Pulse Rate 103 H 105 H Pulse Rate [Pulse Oximeter] 105 H Respiratory Rate 22 Blood Pressure 95/61 Blood Pressure [Le ft Arm] Blood Pressure [Ri ght Upper Arm] 95/61 Pulse Oximetry 90 92 91 Oxygen Delivery Me thod OxyMask [place] Nasal [place] nn[place] Nasal Cannula Oxygen Flow Rate 2 2 2 02/21/24 11:45 02/21/24 11:48 02/21/24 11:50 Temperature Pulse Rate 101 H Pulse Rate [Pulse Oximeter] Respiratory Rate Blood Pressure Blood Pressure [Le ft Arm] Blood Pressure [Ri ght Upper Arm] Pulse Oximetry 94 95 98 Oxygen Delivery Me thod OxyMask OxyMask Oxygen Flow Rate 3 02/21/24 12:00 02/21/24 12:26 02/21/24 12:30 Temperature Pulse Rate 106 H 101 H 101 H Pulse Rate [Pulse Oximeter] Respiratory Rate Blood Pressure Blood Pressure [Le ft Arm] Blood Pressure [Ri ght Upper Arm] Pulse Oximetry 96 95 93 Oxygen Delivery Me thod OxyMask OxyMask OxyMask Oxygen Flow Rate 02/21/24 12:37 02/21/24 12:45 02/21/24 13:00 Temperature Pulse Rate 100 100 108 H Pulse Rate [Pulse Oximeter] Respiratory Rate Blood Pressure 121/83 Blood Pressure [Le ft Arm] Blood Pressure [Ri ght Upper Arm] Pulse Oximetry 94 96 92 Oxygen Delivery Me thod OxyMask OxyMask Oxygen Flow Rate 3 02/21/24 13:03 02/21/24 13:15 02/21/24 13:30 Temperature Pulse Rate 102 H 96 99 Pulse Rate [Pulse Oximeter] Respiratory Rate Blood Pressure 114/75 Blood Pressure [Le ft Arm] Blood Pressure [Ri ght Upper Arm] Pulse Oximetry 94 95 93 Oxygen Delivery Me thod OxyMask OxyMask OxyMask Oxygen Flow Rate 3 3 3 02/21/24 13:31 02/21/24 13:32 02/21/24 13:45 Temperature Pulse Rate 101 H 105 H 105 H Pulse Rate [Pulse Oximeter] Respiratory Rate 22 Blood Pressure 103/72 Blood Pressure [Le ft Arm] Blood Pressure [Ri ght Upper Arm] Pulse Oximetry 93 95 92 Oxygen Delivery Me thod OxyMask Oxygen Flow Rate 3 02/21/24 14:00 02/21/24 14:02 02/21/24 14:15 Temperature Pulse Rate 101 H 104 H 101 H Pulse Rate [Pulse Oximeter] Respiratory Rate Blood Pressure 106/63 Blood Pressure [Le ft Arm] Blood Pressure [Ri ght Upper Arm] Pulse Oximetry 94 93 93 Oxygen Delivery Me thod Oxygen Flow Rate 02/21/24 14:30 02/21/24 14:31 02/21/24 14:32 Temperature Pulse Rate 100 101 H 92 Pulse Rate [Pulse Oximeter] Respiratory Rate Blood Pressure 114/72 Blood Pressure [Le ft Arm] Blood Pressure [Ri ght Upper Arm] Pulse Oximetry 95 92 95 Oxygen Delivery Me thod Oxygen Flow Rate 02/21/24 14:45 02/21/24 15:00 02/21/24 15:02 Temperature Pulse Rate 105 H 95 98 Pulse Rate [Pulse Oximeter] Respiratory Rate Blood Pressure 113/67 Blood Pressure [Le ft Arm] Blood Pressure [Ri ght Upper Arm] Pulse Oximetry 93 94 95 Oxygen Delivery Me thod Oxygen Flow Rate 02/21/24 15:15 02/21/24 15:37 02/21/24 15:37 Temperature 97.5 F L Pulse Rate 95 Pulse Rate [Pulse Oximeter] 94 Respiratory Rate 16 24 Blood Pressure Blood Pressure [Le ft Arm] 127/75 Blood Pressure [Ri ght Upper Arm] Pulse Oximetry 95 97 90 Oxygen Delivery Me thod OxyMask Nasal Cannula Oxygen Flow Rate 3 1 02/21/24 17:23 02/21/24 17:44 02/21/24 17:44 Temperature Pulse Rate Pulse Rate [Pulse Oximeter] Respiratory Rate Blood Pressure Blood Pressure [Le ft Arm] Blood Pressure [Ri ght Upper Arm] Pulse Oximetry 90 89 89 Oxygen Delivery Me thod Nasal Cannula Nasal Cannula Oxygen Flow Rate 1 1 Hospitalist - H&P: Result Labs Labs: Short CBC 02/21/24 Range/Units 12:05 WBC 9.48 (4.50-11.00) K/uL Hgb 9.4 L (13.5-17.5) gm/dL Hct 30.6 L (37.0-53.0) % Plt Count 273 (140-440) K/uL BMP 02/21/24 12:05 Sodium 135 Potassium 3.9 Chloride 103 Carbon Dioxide 25 BUN 12 Creatinine 0.5 Glucose 79 Calcium 7.1 L Cardiac Enzymes 02/21/24 Range/Units 12:05 Troponin I < 0.01 L (0.01-0.04) ng/mL Liver Function 02/21/24 Range/Units 12:05 Total Bilirubin 0.3 (0.1-1.5) mg/dL AST 48 H (12-35) U/L ALT 40 (4-50) U/L Alkaline Phosphatase 59 (40-150) U/L Albumin 3.3 (3.3-5.0) g/dL Assessment and Plan Assessment and plan (1) Recurrent aspiration pneumonia: Problem comment: -multiple events this year -speech therapy consulted during last admission (Dec), recommending outpatient modified barium swallow study. reviewed EPIC; I don't see that this was done. -I do not think this is bacterial; I suspect he has has recurrent aspiration events; fevers with the acute pneumonitis insult. I did not continue the zosyn or vanc. I did standard CAP abx but an argument can be made for no abx. There is no elevation in WBC, CRP or Procal. His imaging is stable, there is no air hunger or ongoing fever. -The struggle will be his quality of life and his eating and thickened foods/liquids for an aspiration prevention. It is possible that nutrition can try a few interventions but ultimately accepting recurrent pneumonitis and education on goals of care and supportive care at home is the path forward. Status: Acute (2) Acute hypoxemic respiratory failure: Problem comment: -supportive cares: oxygen by oximask, CPAP with bleed in, ISP, etc Status: Acute (3) Trisomy 21: Status: Acute (4) Obstructive sleep apnea: Problem comment: - 12/28/23 Sleep study (Dr. Raymundo Espinoza [facility]) showed severe sleep apnea with marked hypoxemia. -follows with sleep medicine. compliance with CPAP has been decent but air leak/efficacy has been a question Status: Chronic (5) Normocytic anemia: Problem comment: - h/o duodenal ulcer in June of 2023 - acute on chronic. No reports of bleeding. No signs of bleeding on exam. - hemoglobin 10, stable, iron 13, TIBC 302, B12 646, folate pending. - Further workup and management per PCP following discharge Status: Acute (6) Celiac disease: Problem comment: Gluten free diet Status: Acute
[2024-02-21 19:34] LABS: Legionella pneumo Ag Urine L. pneumo Negative (Negative); S pneumo Ag Urine S. pneumo Negative (Negative)
[2024-02-21] MEDS: cefTRIAXone 1 GM in 0.9 % SODIUM CHLORIDE Mini-bag 100 ML IVPB (19:54)
[2024-02-21] MEDS: AZITHROMYCIN 250 MG TABLET PO (19:54)
[2024-02-21] MEDS: GABAPENTIN 300 MG CAPSULE 900 MG PO (20:37)
[2024-02-21] MEDS: BUDESONIDE 0.5 MG/2ML NEB NEB (20:37)
[2024-02-21] MEDS: MONTELUKAST 10 MG TABLET PO (20:37)
[2024-02-21] MEDS: QUETIAPINE 100 MG TABLET 300 MG PO (20:37)
[2024-02-21] MEDS: SODIUM CHLORIDE 0.9 % (FLUSH) 10 ML SYRINGE 5 ML IVF (20:39)
[2024-02-22] VITALS (10 sets, daily range): BP systolic 107–151; BP diastolic 65–94; PULSE 80–109; RESP 18–22; TEMP 36.1–36.8; O2SAT 89–96
--- NOTE | 2024-02-22 06:24 | PC.NURSE ---
End of shift [id number]:? Pt oriented to self. Pt accompanied by father. Pt remained afebrile during shift. Pt is arousable to name/touch. Speech is coherent with occasional mumbling.?Pt denies pain during shift. Pt showed no nonverbal cues of pain during shift. Pt is continent of the bladder. SBA. SL. LSCTA while awake. Pt has a gargled noise intermittently while sleeping. CIPAP applied during sleep. Pts 02 sats during rest would drop to 40% and increase back up to 80%. notified. Pt currently on 4L with CIPAP in place and remaining around 90%. Continuing to monitor. Pt appears resting with call light in reach. ?
[2024-02-22] MEDS: OMEPRAZOLE 20 MG CAPSULE DR PO ×2 (06:33→18:58)
[2024-02-22 06:42] LABS: HCO3 VBG 29 mmol/L (21-28); PCO2 VBG 50 mmHG (40-50); pH VBG 7.369 (7.32-7.43)
[2024-02-22 06:47] LABS: Hematocrit 29.7 % (37.0-53.0); Hemoglobin* 9.1 gm/dL (13.5-17.5); Mean Corpuscular HGB Conc 31 gm/dL (32-36); Mean Corpuscular Hemoglobin 27 pg (26-34); Mean Corpuscular Volume 87 fL (80-100); Platelet Count* 256 K/uL (140-440); White Blood Count* 7.64 K/uL (4.50-11.00)
[2024-02-22 06:49] LABS: Slide Review Reflex No
[2024-02-22 06:58] LABS: Chloride* 101 mmol/L (96-114); Potassium* 4.3 mmol/L (3.6-5.1); Sodium* 135 mmol/L (135-149)
[2024-02-22 07:01] LABS: Creatinine* 0.6 mg/dL (0.5-1.5); Est. Creatinine Clearance* 116.22; Estimated Glomerular Filt Rate 122 ml/min
[2024-02-22 07:02] LABS: Anion Gap 7 mEq/L (7-15); Blood Urea Nitrogen* 13 mg/dL (5-24); Calcium* 8.1 mg/dL (8.4-10.6); Carbon Dioxide* 27 mmol/L (20-32); Glucose* 89 mg/dL (60-115)
[2024-02-22 07:18] LABS: C Reactive Protein* 20.4 mg/dL (0.5-1.0); Procalcitonin* 0.54 ng/mL (<0.50)
--- NOTE | 2024-02-22 10:31 | NUTR.NU ---
RDN with MD consult for gluten-free diet and recurrent aspiration. Patient admitted for recurrent aspiration pneumonia. He has a medical history of celiac disease and down syndrome. Current weight 193 lbs; height 5ft 1in; BMI 36.6 kg/m2. His weight has been stable recently. Current diet is Regular with small portions. RDN had visited patient during previous hospitalizations in April 2023 and June 2023. RDN visited with patient and PRINCIPAL RESEARCH ECONOMIST (parents not available at this time) whom reports his appetite has been normal before hospitalization. I informed patient's PRINCIPAL RESEARCH ECONOMIST that we do offer gluten-free frozen meals from a certified gluten-free factory, or family is more than welcome to bring in food for patient. I also mentioned to patient's PRINCIPAL RESEARCH ECONOMIST that I can provide some diet modifications recommendations related to texture and liquid consistency to patient, however since a Barium Swallow Study has not been done yet as was recommended during previous hospitalization, these recommendations will not be based off of SPeech Therapy recommendations. Per IDT today, MD reported patient's parents feel like it would not be beneficial to change patient's diet as he would not understand the changes and enjoys eating. Patient's PRINCIPAL RESEARCH ECONOMIST reported the same concerns and declined diet education at this time. She will inform patient's parents of conversation and they will reach out if they have questions or concerns. No nutrition interventions at this time. RDN will continue to monitor and follow-up prn.
[2024-02-22] MEDS: SODIUM CHLORIDE 0.9 % (FLUSH) 10 ML SYRINGE 5 ML IVF (11:20)
[2024-02-22] MEDS: BUDESONIDE 0.5 MG/2ML NEB NEB ×2 (11:20→20:41)
[2024-02-22] MEDS: ALBUTEROL SULFATE 2.5 MG/3 ML VIAL.NEB NEB (11:24)
--- NOTE | 2024-02-22 11:58 | PM.IMPN1 ---
Progress Note: A&P Assessment and plan (1) Recurrent aspiration pneumonia: Problem details: -multiple events this year Dr. Roberto: -speech therapy consulted during last admission (Dec), recommending outpatient modified barium swallow study. reviewed EPIC; I don't see that this was done. -I do not think this is bacterial; I suspect he has has recurrent aspiration events; fevers with the acute pneumonitis insult. I did not continue the zosyn or vanc. I did standard CAP abx but an argument can be made for no abx. There is no elevation in WBC, CRP or Procal. His imaging is stable, there is no air hunger or ongoing fever. -The struggle will be his quality of life and his eating and thickened foods/liquids for an aspiration prevention. It is possible that nutrition can try a few interventions but ultimately accepting recurrent pneumonitis and education on goals of care and supportive care at home is the path forward. 02/22/24 - Discussion with patient's mother today who is aware that barium swallow study is recommended, but notes that it would not change what they do with his diet due to quality of life concerns. This is understandable. Will hold off on speech evaluation as I do not think it would change any recommendations at this point other than to continue to recommend outpatient barium swallow study. Patient's mother is understanding that he continues to be at risk for recurrent aspiration pneumonia and pneumonitis. - white count is not elevated, but procalcitonin and CRP are elevated more so today than yesterday. He is tachycardic and requiring more oxygen than at baseline. Continue ceftriaxone and azithromycin and monitor yet overnight. I anticipate he may even need 2 nights yet in the hospital. I discussed that with his mother. Status: Acute (2) Acute hypoxemic respiratory failure: Problem details: -supportive cares: oxygen by oxymask, CPAP with bleed in, ISP, etc - will have respiratory therapy see today to discuss using aerobika with albuterol nebs at home to try to increase phlegm expectoration. Status: Acute (3) Trisomy 21: Problem details: - also has history of frontotemporal dementia Status: Chronic (4) Obstructive sleep apnea: Problem details: - 12/28/23 Sleep study (Dr. Raymundo Espinoza [facility]) showed severe sleep apnea with marked hypoxemia. -follows with sleep medicine. compliance with CPAP has been decent but air leak/efficacy has been a question Status: Chronic (5) Normocytic anemia: Problem details: - h/o duodenal ulcer in June of 2023 - acute on chronic. No reports of bleeding. No signs of bleeding on exam. - hemoglobin 10, stable, iron 13, TIBC 302, B12 646, folate pending. - Further workup and management per PCP following discharge Status: Acute (6) Celiac disease: Problem details: Gluten free diet Status: Chronic Plan - mother and WET PROCESS HEAD MILLER noted that patient uses scheduled acetaminophen chronically for back pain. I have changed the p.r.n. acetaminophen order to a scheduled order as they give it to him at home. - VTE prophylaxis with SCDs Subjective Time Seen by Provider: 10:30 Date Seen: 02/22/24 Interval history: Samuel's mother, Savanah, and WET PROCESS HEAD MILLER are here with him today. His mother tells me that Samuel seems to be doing better today. She notes that he is feistier today. She tells me that at baseline he has a lot of phlegm production and she wonders if he is aspirating on phlegm at home. The use a vibratory pep device at home on occasion. There are times where he seems different, a little more quiet and unsteady, where that they will check his oxygen levels and these are low, so they put on a bit of oxygen via nasal cannula. He does not need oxygen all the time, but they have been using it for him multiple times per week even at rest for the past couple months. He gets 2 L per minute bled in through his CPAP at night for obstructive sleep apnea. Vaishali tells me that they discussed doing an outpatient fluoroscopic swallow evaluation with his primary care provider, but they have not done it yet because she is not sure what they would do with the results. She notes that he would not be able to change his diet, and that would affect his quality of life quite a bit. We discussed how his heart rate remains mildly elevated today, some of the inflammatory markers are elevated yet, and he is still requiring more oxygen here than he does at home. They are understanding that I would like him to stay in the hospital yet on IV antibiotics until these things start to improve. Exam Narrative: Exam Narrative: General: No acute distress. Talkative. Awake, alert, oriented x3. No pallor. No jaundice. Oropharynx: Clear. Mucous membranes moist. Cardiovascular: Mildly tachycardic, regular. No murmurs, gallops, or rubs. Respiratory: Bilateral rhonchi throughout and scattered wheezes throughout. Const: Vital Signs, click to edit/add: Vital Signs - 24 hr 02/21/24 12:00 02/21/24 12:26 02/21/24 12:30 Temperature Pulse Rate 106 H 101 H 101 H Pulse Rate [Pulse Oximeter] Respiratory Rate Blood Pressure Blood Pressure [Le ft Arm] Pulse Oximetry 96 95 93 Oxygen Delivery Me thod OxyMask OxyMask OxyMask Oxygen Flow Rate 02/21/24 12:37 02/21/24 12:45 02/21/24 13:00 Temperature Pulse Rate 100 100 108 H Pulse Rate [Pulse Oximeter] Respiratory Rate Blood Pressure 121/83 Blood Pressure [Le ft Arm] Pulse Oximetry 94 96 92 Oxygen Delivery Me thod OxyMask OxyMask Oxygen Flow Rate 3 02/21/24 13:03 02/21/24 13:15 02/21/24 13:30 Temperature Pulse Rate 102 H 96 99 Pulse Rate [Pulse Oximeter] Respiratory Rate Blood Pressure 114/75 Blood Pressure [Le ft Arm] Pulse Oximetry 94 95 93 Oxygen Delivery Me thod OxyMask OxyMask OxyMask Oxygen Flow Rate 3 3 3 02/21/24 13:31 02/21/24 13:32 02/21/24 13:45 Temperature Pulse Rate 101 H 105 H 105 H Pulse Rate [Pulse Oximeter] Respiratory Rate 22 Blood Pressure 103/72 Blood Pressure [Le ft Arm] Pulse Oximetry 93 95 92 Oxygen Delivery Me thod OxyMask Oxygen Flow Rate 3 02/21/24 14:00 02/21/24 14:02 02/21/24 14:15 Temperature Pulse Rate 101 H 104 H 101 H Pulse Rate [Pulse Oximeter] Respiratory Rate Blood Pressure 106/63 Blood Pressure [Le ft Arm] Pulse Oximetry 94 93 93 Oxygen Delivery Me thod Oxygen Flow Rate 02/21/24 14:30 02/21/24 14:31 02/21/24 14:32 Temperature Pulse Rate 100 101 H 92 Pulse Rate [Pulse Oximeter] Respiratory Rate Blood Pressure 114/72 Blood Pressure [Le ft Arm] Pulse Oximetry 95 92 95 Oxygen Delivery Me thod Oxygen Flow Rate 02/21/24 14:45 02/21/24 15:00 02/21/24 15:02 Temperature Pulse Rate 105 H 95 98 Pulse Rate [Pulse Oximeter] Respiratory Rate Blood Pressure 113/67 Blood Pressure [Le ft Arm] Pulse Oximetry 93 94 95 Oxygen Delivery Me thod Oxygen Flow Rate 02/21/24 15:15 02/21/24 15:37 02/21/24 15:37 Temperature 97.5 F L Pulse Rate 95 Pulse Rate [Pulse Oximeter] 94 Respiratory Rate 16 24 Blood Pressure Blood Pressure [Le ft Arm] 127/75 Pulse Oximetry 95 97 90 Oxygen Delivery Me thod OxyMask Nasal Cannula Oxygen Flow Rate 3 1 02/21/24 17:23 02/21/24 17:44 02/21/24 17:44 Temperature Pulse Rate Pulse Rate [Pulse Oximeter] Respiratory Rate Blood Pressure Blood Pressure [Le ft Arm] Pulse Oximetry 90 89 89 Oxygen Delivery Me thod Nasal Cannula Nasal Cannula Oxygen Flow Rate 1 1 02/21/24 19:00 02/21/24 22:50 02/21/24 23:00 Temperature 98 F 98.5 F Pulse Rate Pulse Rate [Pulse Oximeter] 100 105 H 105 H Respiratory Rate 18 22 Blood Pressure Blood Pressure [Le ft Arm] 122/77 114/68 Pulse Oximetry 90 90 Oxygen Delivery Me thod Nasal Cannula Nasal Cannula Oxygen Flow Rate 0.5 1 02/21/24 23:00 02/22/24 03:00 Temperature 98.2 F Pulse Rate Pulse Rate [Pulse Oximeter] 108 H Respiratory Rate 22 21 Blood Pressure Blood Pressure [Le ft Arm] 107/75 Pulse Oximetry 90 90 Oxygen Delivery Me thod Nasal Cannula Nasal Cannula Oxygen Flow Rate 1 4 Labs Labs: Laboratory Results - last 24 hr 02/21/24 02/21/24 02/21/24 12:05 12:20 18:50 WBC 9.48 RBC 3.55 L Hgb 9.4 L Hct 30.6 L MCV 86 MCH 27 MCHC 31 L RDW Coeff of [place] 21.3 H Plt Count 273 Neut % (Auto) 88.3 H Lymph % (Auto) 5.5 L [place] % (Auto) 5.0 Eos % (Auto) 0.5 Baso % (Auto) 0.5 Neut # (Auto) 8.40 H Lymph # (Auto) 0.50 L [place] # (Auto) 0.50 Eos # (Auto) 0.05 Baso # (Auto) 0.05 Abs Immat Gran (auto) 0.02 Imm/Tot Granulo (auto) 0.2 D-Dimer Quant (PE/DVT) 1.34 H VBG pH 7.412 VBG pCO2 47 VBG pO2 71.7 H VBG HCO3 30 H Sodium 135 Potassium 3.9 Chloride 103 Carbon Dioxide 25 Anion Gap 7 BUN 12 Creatinine 0.5 Estimated Creat Clear Estimated GFR 129 Glucose 79 Lactate 1.2 Calcium 7.1 L Total Bilirubin 0.3 AST 48 H ALT 40 Alkaline Phosphatase 59 Troponin I < 0.01 L C-Reactive Protein 12.6 H NT-Pro-B Natriuret Pep 26 Total Protein 6.2 Albumin 3.3 Procalcitonin 0.25 Urine L. pneumophilia Ag L. pneumo Negative Urine Strep pneumoniae Ag S. pneumo Negative SARS-CoV-2 (PCR) Negative SARS-CoV-2 Influenza Type A (PCR) Negative PCR FLU A Influenza Type B (PCR) Negative PCR FLU B RSV (PCR) Negative PCR RSV SARS-CoV-2 Ag (Rapid) Negative 02/22/24 05:59 WBC 7.64 RBC 3.40 L Hgb 9.1 L Hct 29.7 L MCV 87 MCH 27 MCHC 31 L RDW Coeff of [place] Plt Count 256 Neut % (Auto) Lymph % (Auto) [place] % (Auto) Eos % (Auto) Baso % (Auto) Neut # (Auto) Lymph # (Auto) [place] # (Auto) Eos # (Auto) Baso # (Auto) Abs Immat Gran (auto) Imm/Tot Granulo (auto) D-Dimer Quant (PE/DVT) VBG pH 7.369 VBG pCO2 50 VBG pO2 148.0 H VBG HCO3 29 H Sodium 135 Potassium 4.3 Chloride 101 Carbon Dioxide 27 Anion Gap 7 BUN 13 Creatinine 0.6 Estimated Creat Clear 116.22 Estimated GFR 122 Glucose 89 Lactate Calcium 8.1 L Total Bilirubin AST ALT Alkaline Phosphatase Troponin I C-Reactive Protein 20.4 H NT-Pro-B Natriuret Pep Total Protein Albumin Procalcitonin 0.54 H Urine L. pneumophilia Ag Urine Strep pneumoniae Ag SARS-CoV-2 (PCR) Influenza Type A (PCR) Influenza Type B (PCR) RSV (PCR) SARS-CoV-2 Ag (Rapid)
[2024-02-22] MEDS: ACETAMINOPHEN 500 MG TABLET 1000 MG PO (15:02)
[2024-02-22] MEDS: AZITHROMYCIN 250 MG TABLET PO (18:59)
[2024-02-22] MEDS: cefTRIAXone 1 GM in 0.9 % SODIUM CHLORIDE Mini-bag 100 ML IVPB (18:59)
--- NOTE | 2024-02-22 19:20 | RESP.RT ---
Patient has nocturnal O2 that bleeds into his HomeCPAP. Caregivers state that they have been starting to use the O2 during the day as well as they have noticed his SATs dropping as he has been aspirating more of his oral secretions over the past few months. He is able to do his nebs and Aerobika with little instruction and has a strong cough.
[2024-02-22] MEDS: MONTELUKAST 10 MG TABLET PO (20:40)
[2024-02-22] MEDS: QUETIAPINE 100 MG TABLET 300 MG PO (20:41)
[2024-02-22] MEDS: ACETAMINOPHEN 650 MG TABLET ER 1300 MG PO (20:41)
[2024-02-22] MEDS: GABAPENTIN 300 MG CAPSULE 900 MG PO (20:41)
[2024-02-23 03:44] VITALS: BP 130/71; PULSE 86; RESP 18; TEMP 36.1; O2SAT 91
--- NOTE | 2024-02-23 06:14 | PC.NURSE ---
Pt alert, oriented and vitally stable. 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 Pt afebrile throughout shift. Pt removed IV, tip intact. Consulted with Dr. Millard whom said we did not need to reinsert at this time. Pt is continent, moves via SBA tolerates well. Pt uses CPAP throughout the night and tolerates well. Pt on 2 L NC with O2 stats 88-95%. Pt appears to be resting, call light in reach.
[2024-02-23] MEDS: OMEPRAZOLE 20 MG CAPSULE DR PO (06:33)
[2024-02-23 07:00] VITALS: BP 96/77; PULSE 96; RESP 18; TEMP 37.2; O2SAT 92
[2024-02-23 07:34] LABS: Basophils Percent Auto 0.8 % (0.0-3.0); Eosinophils Percent Auto 4.6 % (0.0-7.0); Hematocrit 32.5 % (37.0-53.0); Hemoglobin* 9.6 gm/dL (13.5-17.5); Immature Granulocytes Pct Auto 0.8 %; Lymphocytes Percent Auto 19.8 % (20-44); Mean Corpuscular HGB Conc 30 gm/dL (32-36); Mean Corpuscular Hemoglobin 26 pg (26-34); Mean Corpuscular Volume 88 fL (80-100); Monocytes Percent Auto 7.2 % (0.0-11.0); Neutrophils Percent Auto 66.8 % (42.0-72.0); Platelet Count* 222 K/uL (140-440); RDW Coefficient of Variation % 21.2 % (11.5-15.5); White Blood Count* 3.73 K/uL (4.50-11.00)
[2024-02-23 07:37] LABS: Slide Review Reflex Yes
[2024-02-23 07:46] LABS: Albumin* 3.7 g/dL (3.3-5.0); Chloride* 99 mmol/L (96-114)
[2024-02-23 07:47] LABS: Sodium* 138 mmol/L (135-149)
[2024-02-23 07:49] LABS: Bilirubin Total* 0.1 mg/dL (0.1-1.5); Creatinine* 0.5 mg/dL (0.5-1.5); Est. Creatinine Clearance* 139.47; Estimated Glomerular Filt Rate 129 ml/min
[2024-02-23 07:50] LABS: Alanine Aminotransferase* 32 U/L (4-50); Alkaline Phosphatase* 85 U/L (40-150); Anion Gap 6 mEq/L (7-15); Aspartate Amino Transferase* 27 U/L (12-35); Blood Urea Nitrogen* 10 mg/dL (5-24); Calcium* 8.4 mg/dL (8.4-10.6); Carbon Dioxide* 33 mmol/L (20-32); Glucose* 105 mg/dL (60-115)
[2024-02-23 08:11] LABS: C Reactive Protein* 19.6 mg/dL (0.5-1.0)
[2024-02-23 08:26] LABS: Slide Review Acceptable Review (Acceptable)
--- NOTE | 2024-02-23 09:03 | PM.DS1 ---
DS: Providers Provider Time Seen by Provider: 07:59 Date Seen: 02/23/24 Date of admission: 02/21/24 17:44 Primary care physician: Carrie Pena MD Admitting Clinician: Katrina Williamson MD Consults: 02/21/24 17:44 Consult to Nutrition [CONS] Routine Comment: Reason for consult:: Nutritional Consult Comment: gluten free; likely aspirating Consult to Occupational Therapy [CONS] Routine Comment: Reason(s) for OT Consult:: Evaluate and Treat Any Restrictions?:: No Restrictions Consult to Physical Therapy [CONS] Routine Comment: Reason(s) for PT Consult:: Evaluate and Treat Any Restrictions?:: No Restrictions Consult to Respiratory Therapy [CONS] Routine Comment: Reason(s) for RT Consult:: Consult Attending Physician on discharge: Octavia Gonzalez MD DS: Diagnosis Discharge Diagnosis (1) Acute hypoxemic respiratory failure: Status: Acute Problem details: - 02/21/24 supportive cares: oxygen by oxymask, CPAP with bleed in, ISP, etc - 02/21 will have respiratory therapy see today to discuss using aerobika with albuterol nebs at home to try to increase phlegm expectoration. - 02/22 Oxygen needs have decreased to what he has been using at home over the past few months (2) Recurrent aspiration pneumonia: Status: Acute Problem details: -multiple events this year Dr. Roberto: -speech therapy consulted during last admission (Dec), recommending outpatient modified barium swallow study. reviewed EPIC; I don't see that this was done. -I do not think this is bacterial; I suspect he has has recurrent aspiration events; fevers with the acute pneumonitis insult. I did not continue the zosyn or vanc. I did standard CAP abx but an argument can be made for no abx. There is no elevation in WBC, CRP or Procal. His imaging is stable, there is no air hunger or ongoing fever. -The struggle will be his quality of life and his eating and thickened foods/liquids for an aspiration prevention. It is possible that nutrition can try a few interventions but ultimately accepting recurrent pneumonitis and education on goals of care and supportive care at home is the path forward. 02/22/24 - Discussion with patient's mother today who is aware that barium swallow study is recommended, but notes that it would not change what they do with his diet due to quality of life concerns. This is understandable. Will hold off on speech evaluation as I do not think it would change any recommendations at this point other than to continue to recommend outpatient barium swallow study. Patient's mother is understanding that he continues to be at risk for recurrent aspiration pneumonia and pneumonitis. - white count is not elevated, but procalcitonin and CRP are elevated more so today than yesterday. He is tachycardic and requiring more oxygen than at baseline. Continue ceftriaxone and azithromycin and monitor yet overnight. I anticipate he may even need 2 nights yet in the hospital. I discussed that with his mother. 02/22 Patient's father was with him overnight and this morning. Oxygen needs have returned to baseline. He has been afebrile for almost 48 hours. WBC, CRP improving. Tachycardia has resolved. Transition to oral antibiotics and discharge home today. F/u with PCP this coming week. (3) Trisomy 21: Status: Chronic Problem details: - also has history of frontotemporal dementia (4) Obstructive sleep apnea: Status: Chronic Problem details: - [facility] with marked hypoxemia. -follows with sleep medicine. compliance with CPAP has been decent but air leak/efficacy has been a question (5) Normocytic anemia: Status: Acute Problem details: - h/o duodenal ulcer in June of 2023 - acute on chronic. No reports of bleeding. No signs of bleeding on exam. - hemoglobin 10, stable, iron 13, TIBC 302, B12 646, folate pending. - Further workup and management per PCP following discharge (6) Celiac disease: Status: Chronic Problem details: Gluten free diet DS: Summary Hospital Course Hospital Course: Per H&P: 43-year-old trisomy 21 male with a history of recurrent pneumonia, severe ELY, obesity, obsessive-compulsive disorder and celiac presents to the emergency room with worsening cough, fever and hypoxia. 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 They noted his O2 sats to be in the low to mid 80s and fever to 99-100. He seemed listless getting up this morning. He was brought into the emergency room for further evaluation. He has had multiple emergency room/urgent care/primary care visits over the last year. He was last hospitalized in December with aspiration pneumonia and COVID. He has had multiple rounds of antibiotics. He has been diagnosed with obstructive sleep apnea, severe. He has had appropriate follow-up with sleep medicine and is wearing a CPAP with moderate success. At his admission in December he did have a bedside swallow evaluation. A full fluoroscopic swallow eval was recommended as an outpatient. His parents have not followed up on this as they feel changing his diet would be a significant quality of life issue with minimal JUAN. He does remain full code and has extremely attentive family. He sees Carrie Chaparro in the [facility]. Antibiotics in the last 6 months: 02/05/2024 Augmentin 875 mg x7 days (with prednisone) 01/31/2024 Zithromax Z-Isael 01/02/2024 azithromycin and Augmentin at discharge December of 2023 admission: Zosyn 12/15/2023 Ceftin x7 days plus doxycycline x7 days 12/13/2023 Ceftin and doxycycline 10/04/2023 azithromycin and amoxicillin 07/02/2023 clarithromycin (as part of duodenal ulcer tx) Samuel was feeling better yesterday, but was still mildly tachycardic. Today he has been afebrile for almost 48 hours, is no longer tachycardic, white count and CRP are improving, and his oxygen needs have returned to baseline. I have spoken with his father who is comfortable taking him home today in this improved and stable condition. He has been on IV ceftriaxone and azithromycin and I am switching him over to cefpodoxime plus azithromycin for home going. He will also have his usual Pulmicort and albuterol nebs along with a vibratory pep device for use at home. I will have him follow-up with his primary care provider this coming week. Please see diagnoses above for further details. Time Spent with Patient Time attestation: Total time spent providing and/or coordinating discharge services: Exam Narrative: Exam Narrative: General: No acute distress. Talkative. Awake, alert, oriented x3. No pallor. No jaundice. Oropharynx: Clear. Mucous membranes moist. Cardiovascular: Regular rate and rhythm. No murmurs, gallops, or rubs. Respiratory: Bilateral rhonchi throughout, slightly better than yesterday, and rare scattered wheezes throughout. Const: Vital Signs, click to edit/add: Vital Signs - 24 hr 02/22/24 13:00 02/22/24 15:00 02/22/24 15:00 Temperature 98 F Pulse Rate [Pulse Oximeter] 103 H 95 Respiratory Rate 20 20 20 Blood Pressure [Le ft Arm] 131/94 H Pulse Oximetry 96 93 Oxygen Delivery Me thod Nasal Cannula Room Air Oxygen Flow Rate 2 2 02/22/24 15:06 02/22/24 17:44 02/22/24 19:00 Temperature 97.8 F 98.3 F Pulse Rate [Pulse Oximeter] 95 90 Respiratory Rate 20 22 Blood Pressure [Le ft Arm] 151/86 H 135/83 Pulse Oximetry 93 93 94 Oxygen Delivery Me thod Room Air Nasal Cannula Oxygen Flow Rate 2 02/22/24 22:09 02/22/24 22:10 02/22/24 23:14 Temperature 96.9 F L Pulse Rate [Pulse Oximeter] 90 80 Respiratory Rate 22 18 Blood Pressure [Le ft Arm] 116/65 Pulse Oximetry 94 89 Oxygen Delivery Me thod Nasal Cannula CPAP Oxygen Flow Rate 2 2 02/23/24 03:44 Temperature 97.0 F L Pulse Rate [Pulse Oximeter] 86 Respiratory Rate 18 Blood Pressure [Le ft Arm] 130/71 Pulse Oximetry 91 Oxygen Delivery Me thod CPAP Oxygen Flow Rate 2 DS: Data Data Completed and Pending Completed studies during hospitalization: Ordering Physician: Kathy De Dios M.D. Date of Service: 02/21/24 Procedure(s): CT angio chest PE protocol Accession Number(s): [id number] cc: Carrie Pena M.D.; Kathy De Dios M.D.~ For Patients: As a result of the Cures Act, medical imaging exams and procedure reports are released immediately into your electronic medical record. You may view this report before your referring provider. If you have questions, please contact your health care provider. Indication: WORSENING HYPOXIA, FEVER, RECENT COVID Technique: CTA chest, pulmonary embolism protocol, utilizing 95 mL Isovue 370 Comparison: CTA chest on January 10, 2024 Findings: CARDIOVASCULAR: Diagnostic quality: Contrast opacification of the pulmonary arterial circulation is adequate for assessment of pulmonary embolism. Study is not significantly limited by respiratory motion artifact. Pulmonary arteries: No filling defects to suggest pulmonary embolism. Not enlarged. Regions of decreased attenuation in the distal segmental and subsegmental pulmonary arteries are favored to represent contrast mixing artifact, similar in appearance compared to prior exam. Heart: Normal in size with no CT evidence of right heart strain. No significant coronary artery calcification. No significant valvular calcification. Pericardium: Small to moderate pericardial effusion, stable. Thoracic aorta: No significant abnormality. Aberrant course of the right subclavian artery. REMAINING CHEST: Thyroid: Normal. Lymph nodes: No lymphadenopathy. Other mediastinal structures: No significant abnormality. Lung parenchyma: Improvement in previously visualized bilateral moderate patchy airspace opacities with some persistent opacities seen in the bilateral upper and right middle and lower lobes with some atelectatic changes seen in the medial and basilar aspect of the left lower lobe. Airways: Bronchial wall thickening. Pleura: Trace right pleural effusion. Chest wall: No significant abnormality. Upper abdomen: No significant abnormality. Musculoskeletal: No acute abnormality. Remote, healed rib fractures. Impression: 1. No pulmonary embolism. 2. Improvement in previously visualized bilateral moderate patchy airspace opacities with some persistent opacities seen bilaterally and some atelectatic changes seen in the left lung base. 3. Stable pericardial effusion. Please note that all CT scans at this facility use dose modulation, iterative reconstruction, and/or weight-based dosing when appropriate to reduce radiation dose to as low as reasonably achievable. Dictated by Nico Smith MD @ 02/21/2024 12:45:56 PM (Electronically Signed) Labs on day of discharge: Labs from last 24 hours 02/23/24 07:26 WBC 3.73 L RBC 3.70 L Hgb 9.6 L Hct 32.5 L MCV 88 MCH 26 MCHC 30 L RDW Coeff of [place] 21.2 H Plt Count 222 Neut % (Auto) 66.8 Lymph % (Auto) 19.8 L [place] % (Auto) 7.2 Eos % (Auto) 4.6 Baso % (Auto) 0.8 Neut # (Auto) 2.50 Lymph # (Auto) 0.70 L [place] # (Auto) 0.30 Eos # (Auto) 0.20 Baso # (Auto) 0.00 Abs Immat Gran (auto) 0.00 Imm/Tot Granulo (auto) 0.8 Diff Slide Review Acceptable Review Sodium 138 Potassium 4.0 Chloride 99 Carbon Dioxide 33 H Anion Gap 6 L BUN 10 Creatinine 0.5 Estimated Creat Clear 139.47 Estimated GFR 129 Glucose 105 Calcium 8.4 Total Bilirubin 0.1 AST 27 ALT 32 Alkaline Phosphatase 85 C-Reactive Protein 19.6 H Total Protein 7.0 Albumin 3.7 Preliminary micro results at discharge 02/21/24 12:05 Blood Culture - Preliminary Blood NO GROWTH AFTER 24 HOURS Discharge Plan Discharge Disposition: Home, Self-Care Date of Admission: 02/21/24 17:44 Attending Provider on Discharge: Octavia Gonzalez Primary Care Provider: Carrie Pena Condition: Improved Anticipated Discharge Date/Time: 02/23/24 09:10 Discharge Medications: New azithromycin 250 mg Tablet 250 mg PO DAILY@18 3 Days Qty: 3 0RF acetaminophen 500 mg Tablet 1,000 mg PO DAILY@15 Qty: 60 0RF cefpodoxime 200 mg Tablet 200 mg PO BID 8 Days Qty: 16 0RF Rx Instructions: Start evening 02/23/24 Continued albuterol sulfate 2.5 mg /3 mL (0.083 %) solution for nebulization 2.5 mg inhalation Q4H PRN (Reason: cough) Rx Instructions: PER NEBULIZER montelukast 10 mg tablet 10 mg PO HS fluvoxamine 100 mg tablet 100 mg PO BID omeprazole 20 mg Capsule,Delayed Release(Dr/Ec) 20 mg PO BID Qty: 60 2RF acetaminophen [8 Hour Pain Reliever] 650 mg tablet extended release 1,300 mg PO BID budesonide 0.5 mg/2 mL suspension for nebulization 0.5 mg inhalation BID cholecalciferol (vitamin D3) 50 mcg (2,000 unit) capsule 50 mcg PO DAILY lorazepam 1 mg tablet 0.25 mg PO TID PRN (Reason: anxiety) gabapentin 300 mg capsule 900 mg PO HS quetiapine 300 mg tablet 300 mg PO HS Probiotic 10 billion cell capsule 10,000 mmu cells PO DAILY Discharge Orders: Discharge Order (Routine); Ordered 02/23/24 Ordered By: Octavia Gonzalez Additional Instructions: - According to Dr. Pena's note from 02/05/24, she has referred you to Pulmonology. I recommended making/keeping that appointment. - Finish all antibiotics as prescribed. - Take a probiotic while on antibiotics and for about a month afterward. Activity Level: No Restrictions Discharge Diet: Regular Follow Up Appointments: Carrie Pena MD [Primary Care Provider] - (3-5 days with CBC) Forms: [facility] Info Instructions
[2024-02-23] MEDS: BUDESONIDE 0.5 MG/2ML NEB NEB (09:25)
[2024-02-23] MEDS: ACETAMINOPHEN 650 MG TABLET ER 1300 MG PO (09:25)
[2024-02-23 10:16] VITALS: RESP 18; O2SAT 92
--- NOTE | 2024-02-23 10:18 | RESP.RT ---
Patient up in chair, sleeps in chair with Home CPAP, 2 Lpm oxygen in line. Use last night with slight mask leak, patient has short chin hankins. BBS with expiratory wheeze, more noticeable on RLL. Clears with cough. Patient using Aerobika well, good exhalation producing good loose cough, with moderate sounding amount of secretions, patient swallowed. Patient has good chest shake.
--- NOTE | 2024-02-23 12:01 | PC.NURSE ---
Discharge: patient discharged today at 1034 accompanied by mom and dad. VSS. RA. a/o, Hx of special needs/trisomy 21. Patient up SBA to BR and hallway, tolerated activity well. Discharge paperwork signed and caregivers verbalized understanding.
== END 2024-02-23 10:34 | disposition home or self-care (01) | DRG 177 ==
LOC: ED 12:14 → MEDSURG 15:26
PROVIDERS: Family Medicine; Admitting Provider Family Medicine; Emergency Provider Family Medicine; PCP Family Medicine; Visit Provider Family Medicine
DX: J69.0 Pneumonitis due to inhalation of food and vomit (principal); J96.01 Acute respiratory failure with hypoxia; Q90.9 Down syndrome, unspecified; G47.33 Obstructive sleep apnea (adult) (pediatric); G31.09 Other frontotemporal neurocognitive disorder; F02.80 Dementia in other diseases classified elsewhere, unspecified severity, without behavioral disturbance, psychotic disturbance, mood disturbance, and anxiety; F32.9 Major depressive disorder, single episode, unspecified; F42.9 Obsessive-compulsive disorder, unspecified; K90.0 Celiac disease; E66.9 Obesity, unspecified; D64.9 Anemia, unspecified; G89.29 Other chronic pain; M54.9 Dorsalgia, unspecified; R00.0 Tachycardia, unspecified; Z68.37 Body mass index [BMI] 37.0-37.9, adult
CPT/HCPCS: 36415; 71275; 80048; 80053; 82803; 83605; 83880; 84145; 84484; 85025; 85027; 85379; 86140; 87040; 87081; 87426; 87449; 87631; 87804; 87899; 93005; 94640; 94664; 94761; 97110; 97116; 97162; 97166; 97530; 99284; 99285; A9270; J0696; J1885; J2543; J3372; J7030; J7626; Q9967

== ENCOUNTER 2024-05-19 16:23 | Emergency (ER) | payer MEDICARE, MEDICAID, SELFPAY ==
--- OUTSIDE RECORDS SUMMARY | 2024-05-19 16:25 | XMS_ITS | Clinical Summary ---
Author Organization [facility] Address [place], [place] [address] Care Team Providers Care Saddle Stitch Operator Name Role Phone Carrie Pena MD Primary Care Provide r Allergies Active Allergy Reactions Criticality Noted Date Comments Celecoxib Vomiting 07/26/2023 Gluten Diarrhea 08/06/2012 Medications cholecalciferol (VITAMIN D-3) 2,000 unit capsule Take 1 capsule by mouth once daily. 0 015 Active acetaminophen SR (Tylenol Arthritis Pain) 650 mg Extended-Release tablet Max acetaminophen dose: 4000mg in 24 hrs., 1300 mg twice daily 024 Active omeprazole (PRILOSEC) 20 mg Delayed-Release capsuleIndication s:Chronic GERD TAKE 1 CAPSULE BY MOUTH TWICE A DAY 180 Capsule 3 024 Active wheelchairIndicat ions:Down's syndrome,Dementia in Alzheimer's disease (HC),Lumbar radiculopathy,DDD (degenerative disc disease), lumbar Wheelchair: lt wt with leg rests: (Swing away Length of need: 99 months 1 Each 024 Active NebulizerIndicati ons:Recurrent aspiration pneumonia (HC) Nebulizer, disposable neb kit x 4, reuseable neb kit x 1, mask x 1, filters x 1. Frequency of use: daily; Medication: albuterol nebs 2.5 mg Length of need: 99 months 1 Each 024 Active budesonide (PULMICORT RESPULES) 0.5 mg/2 mL neb suspensionIndicat ions:Mild intermittent asthma with exacerbation Inhale 2 mL (0.5 mg) via a nebulizer two times daily. 120 mL Active albuterol-ipratro pium (DUONEB) (2.5-0.5 mg) in 3 mL NEBULIZATION solutionIndicatio ns:Mild intermittent asthma with exacerbation Inhale 3 mL via a nebulizer every 6 hours if needed for Shortness Of Breath or Wheezing 2nd choice. Active CPAPIndications:O SA (obstructive sleep apnea) CPAP (E0601) machine for home use at pressure: 5-18 , Choice of mask (A7030 or A7034) w/full face cushion (A7031) x1/mo, nasal cushion (A7032) x2/mo, or nasal pillows (A7033) x 2/mo; Length of Need: 99 months; Frequency of use: Daily 1 Each Active overnight oximetryIndicatio ns:ELY (obstructive sleep apnea) For home use. On Room Air yes; On Oxygen ; On CPAP yes; On BiPAP no 1 Each Active albuterol 0.083% (2.5 mg/3 mL) neb solutionIndicatio ns:Recurrent aspiration pneumonia (HC),Chronic cough INHALE 3 ML (2.5 MG) VIA A NEBULIZER EVERY 4 HOURS IF NEEDED FOR COUGH 1ST CHOICE. 75 mL 2 Active traZODone (DESYREL) 50 mg tabletIndications :Insomnia, unspecified type Take 1-2 Tablets (50-100 mg) by mouth at bedtime if needed for Sleep. 31 Tablet 5 Active gabapentin (NEURONTIN) 300 mg capsuleIndication s:Pain,Agitation due to dementia (HC),Major neurocognitive disorder, due to frontotemporal lobar degeneration, with behavioral disturbance, severe (HC) Take 1 Capsule (300 mg) by mouth two times daily AND 3 Capsules (900 mg) at bedtime. 450 Capsule 1 Active montelukast (SINGULAIR) 10 mg tabletIndications :Recurrent aspiration pneumonia (HC),Chronic cough TAKE 1 TABLET (10 MG) BY MOUTH AT BEDTIME. 30 Tablet 3 024 Active fluvoxaMINE (LUVOX) 100 mg tabletIndications :Major neurocognitive disorder, due to frontotemporal lobar degeneration, with behavioral disturbance, severe (HC) TAKE 1 TABLET (100 MG) BY MOUTH TWO TIMES DAILY. 180 Tablet 025 Active LORazepam (ATIVAN) 0.5 mg tabIndications:Mo od disorder (HC) TAKE 1/2 TABLET BY MOUTH THREE TIMES DAILY NEEDED FOR ANXIETY (AGITATION). 90 Tablet 2 025 Active multivit with vrw-TM-xrpguvoz (ONE-A-DAY MEN'S MULTIVITAMIN) 400-300 mcg tab Take by mouth. 0 015 2024 Discontinued(* Med complete/Regim en complete/Level of care change) LORazepam (ATIVAN) 0.5 mg tabIndications:Mo od disorder (HC) Take 0.5 Tablets (0.25 mg) by mouth 3 times daily if needed for Anxiety (Agitation). 90 Tablet 024 2024 Discontinued fluvoxaMINE (LUVOX) 100 mg tabletIndications :Major neurocognitive disorder, due to frontotemporal lobar degeneration, with behavioral disturbance, severe (HC) Take 1 Tablet (100 mg) by mouth two times daily. 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 Acne nuchae keloidalis 11/08/2011 OCD (obsessive compulsive disorder) 11/04/2008 Celiac disease 01/17/2007 Down's syndrome 08/29/2006 Resolved Problems Problem Noted Date Diagnosed Date Resolved Date Aspiration pneumonia 08/14/2012 015 Localized superficial swelling, mass, or lump 10/22/19 11 08/23/2013 Major depression in complete remission 11/04/2008 08/23/2013 Major depression in complete remission 11/04/2008 11/04/2008 Loss of weight 01/17/2007 11/04/2008 Encounters Date Type Department Care Team Description 04/24/2024 Refill [facility] [address] [facility] [place] [address] Marge Nguyen MD Refill Request (Lorazepam) 04/23/2024 Telephone [facility] [address] [place] [place] [address] Carrie Pena MD Abnormal Lab Results 04/23/2024 Orders Only [facility] [address] [facility] [place] [address] Carrie Pena MD <No scans attached> 04/15/2024 1:00 PM ASSET PROTECTION MANAGER Orders Only [facility] [address] [facility] [place] [address] Lab, [place] [facility] 04/15/2024 Refill [facility] [address] [place] [address] Marge Nguyen MD Refill Request (Fluvoxamine) 04/15/2024 Travel 04/02/2024 Refill [facility] [address] [place] [address] Carrie Pena MD Refill Request (Montelukast) 03/18/2024 9:15 AM ASSET PROTECTION MANAGER Telemedicine [facility] [address] [place] [address] Marge Nguyen MD Telehealth; Medication Management (Things are going better) 03/15/2024 Refill [facility] [address] [place] [address] Marge Nguyen MD Refill Request (Gabapentin) 03/09/2024 Telephone [facility] [address] [place] [address] Carrie Pena MD Abnormal Lab Results 03/07/2024 Travel 02/26/2024 10:15 AM ASSET PROTECTION MANAGER Telemedicine [facility] [address] [place] [address] Marge Nguyen MD Telehealth 02/26/2024 Travel 02/25/2024 2:15 PM ASSET PROTECTION MANAGER Office Visit [facility] [address] [place] [address] Prosper Alvarado MD Hospital F/U 02/25/2024 Telephone [facility] [address] [place] [address] Pulmonary, Ulsc Screening 02/25/2024 Travel 02/25/2024 Refill [facility] [address] [place] [address] Marge Nguyne MD Refill Request (Fluvoxamine) 02/23/2024 Orders Only [facility] Scanner 1 scan: (1-Ord) [facility], MULTIPLE LABS, 02/23/2024 02/21/2024 Orders Only [facility] Scanner 1 scan: (1-Ord) BORDERLINE ECG, 02/21/2024 02/21/2024 Orders Only [facility] Scanner 1 scan: (1-Ord) [facility], CT ANGIO CHEST PE PROTOCOL, 02/21/2024 from Last 3 Months Immunizations Name Administration Dates Next Due COVID-19 vaccine (Moderna 10 0mcg/0.5mL) BEKA MANCINI 07/21/2020,06/23/2020 Hepatitis B (Adult) 02/05/2003,03/20/2002,2000 Influenza, IIV4 01/24/2017 Td (Age >=7 Years) 08/26/2004 Tdap 10/21/2010 Family History Medical History Relation Name Comments Cancer Maternal Grandfather leukemi a age 52 Cancer-colon Maternal Grandmother Age 70 Diabetes Other Maternal aunts/ uncles Relation Name Status Comments Brother 1 Alive Brother 2 Alive Brother 3 Alive Brother 4 Alive Father Alive Maternal Grandfather Maternal Grandmother Mother Alive Other Sister 1 Alive Sister 2 Alive Social History Tobacco Use Types Packs/Day Years Used Date Smoking Tobacco: Never Smokeless Tobacco: Never Tobacco Cessation:Counseling Given: Yes Alcohol Use Standard Drinks/Week Comments No 0 (1 standard drink = 0.6 oz pur e alcohol) Social Connections Answer Date Recorded Do you often feel lonely or isolated from those around you? 0 11/22/2023 Financial Resource Strain Answer Date R ecorded Difficulty of Paying Living Expenses 3 11/22/2023 Difficulty of Paying Living Expenses Not on file 11/22/2023 Food Insecurity Answer Date Recorded Do you worry your food will run out before you are able to buy more? 1 11/22/2023 Transportation Needs Answer Date Record ed Does lack of transportation keep you from medica l appointments? 1 11/22/2023 Does lack of transportation keep you from work, meetings or getting things that you need? 1 11/22/2023 Housing Stability Answer Date Recorded What is your housing situation today? 1 11/22/2023 Utilities Answer Date Recorded Do you have trouble paying f or utilities (for example, heat, electricity, water, phone)? 1 11/22/2023 Sex and Gender Information Value Date Recorded Sex Assigned at Not on file Legal Sex Male 5:26 AM ASSET PROTECTION MANAGER Gender Identity Not on file Sexual Orientation Not on file Occupation Industry Job Start Date Job End Date Alf Not on file Not on file Not on file Obstetrics History Last Filed Vital Signs Vital Sign Reading Time Taken Comments Blood Pressure 111/78 02/25/2024 2:12 PM ASSET PROTECTION MANAGER Pulse 95 02/25/2024 2:12 PM ASSET PROTECTION MANAGER Temperature 36.4 C (97.6 F) 02/25/2024 2:12 PM ASSET PROTECTION MANAGER Respiratory Rate 18 05/03/2021 10:37 AM ASSET PROTECTION MANAGER Oxygen Saturation 88% 02/25/2024 2:12 PM ASSET PROTECTION MANAGER Inhaled Oxygen Concentration - - Weight 86.4 kg (190 lb 8 oz) 02/25/2024 2:12 PM ASSET PROTECTION MANAGER Height 156.8 cm (5' 1.75) 02/12/2024 3:23 PM CD T Body Mass Index 35.13 02/12/2024 3:23 PM CDT Plan of Treatment Upcoming Encounters Date Type Department Care Team (Late st Contact Info) Description 06/05/2024 1:15 PM ASSET PROTECTION MANAGER Office Visit [facility] [address] [place] [address] Cliff Snyder, DO [address] [place] [address] 07/16/2024 1:00 PM CDT Office Visit [facility] [address] [facility] [address] Raymundo Espinoza MD [address] [facility] [address] 09/16/2024 10:15 AM CDT Telemedicine [facility] [address] [facility] [address] Marge Nguyen MD [address] [place] [address] Health Maintenance Due Date Last Done Comments HIV for age 15-65 12/06/1994 Hepatitis C screening for age 18-79 12/06/1997 Tetanus booster 10/21/2020 10/21/2010, 08/26/2004 COVID-19 vaccine series (2023- season) 2023 07/21/2020, 06/23/2020 Influenza for age 9-49 12/16/2023 01/24/2017 BMI (ht and wt on same day) for age 18+ 02/11/2025 02/12/2024, 07/26/2023, 05/30/2022, Additional history exists Lipids for age 35-44 09/21/2025 09/21/2020, 02/26/2013, 11/08/2010, Additional history exists Tdap Completed 10/21/2010 Pneumococcal series for age 6-49 Aged Out No longer eligible based on patient's age to complete this topic Procedures Procedure Name Priority Date/Time Associated Diagnosis Comments CBC WITH AUTO DIFFERENTIAL Routine 04/15/2024 1:05 PM ASSET PROTECTION MANAGER Iron deficiency anemia due to chronic blood loss FERRITIN Routine 04/15/2024 1:05 PM ASSET PROTECTION MANAGER Iron deficiency anemia due to chronic blood loss VITAMIN B12 Routine 03/07/2024 1:28 PM ASSET PROTECTION MANAGER Recurrent aspiration pneumonia (HC) FERRITIN Routine 03/07/2024 1:28 PM ASSET PROTECTION MANAGER Recurrent aspiration pneumonia (HC) Other abnormality of red blood cells RETICULOCYTES Routine 03/07/2024 1:28 PM ASSET PROTECTION MANAGER Recurrent aspiration pneumonia (HC) HAPTOGLOBIN Routine 03/07/2024 1:28 PM ASSET PROTECTION MANAGER Recurrent aspiration pneumonia (HC) CBC WITH AUTO DIFFERENTIAL Routine 03/07/2024 1:28 PM ASSET PROTECTION MANAGER Recurrent aspiration pneumonia (HC) SCAN-LABORATORY REPORT 4 12:00 AM ASSET PROTECTION MANAGER SCAN-ELECTROCARDIOGRAM EKG 02/21/2024 12:00 AM ASSET PROTECTION MANAGER SCAN-CT INTERPRETATION 12:00 AM ASSET PROTECTION MANAGER LIPID PANEL W REFLEX MEASURED LDL Routine 09/21/2020 12:35 PM CDT terminal make up operator current use of antipsychotic medication from Last 3 Months or Most Recently Relevant to Health Maintenance Results * (ABNORMAL) CBC AND DIFFERENTIAL (04/15/2024 1:05 PM ASSET PROTECTION MANAGER) Only the most recent of2 resultswithin the time period is included. Pathologist [facility] WHITE BLOOD CELL COUNT 4.3 3.8 - 10.8 Thousand/u L [facility] RED BLOOD CELL COUNT 4.05(L) 4.20 - 5.80 Million/uL [facility] HEMOGLOBIN 10.6(L) 13.2 - 17.1 g/dL [facility] HEMATOCRIT 34.3(L) 38.5 - 50.0 % [facility] MCV 84.7 80.0 - 100.0 fL [facility] MCH 26.2(L) 27.0 - 33.0 pg [facility] MCHC 30.9(L) 32.0 - 36.0 g/dL [facility] Comment: For adults, a slight decrease in the calculated MCHC value (in the range of 30 to 32 g/dL) is most likely not clinically significant; however, it should be interpreted with caution in correlation with other red cell parameters and the patient's clinical condition. RDW 18.6(H) 11.0 - 15.0 % [facility] PLATELET COUNT 302 140 - 400 Thousand/u L [facility] MPV 10.4 7.5 - 12.5 fL [facility] ABSOLUTE NEUTROPHILS 2,533 1,500 - 7,800 cells/uL [facility] ABSOLUTE LYMPHOCYTES 1,385 850 - 3,900 cells/uL [facility] ABSOLUTE MONOCYTES 262 200 - 950 cells/uL [facility] ABSOLUTE EOSINOPHILS 60 15 - 500 cells/uL [facility] ABSOLUTE BASOPHILS 60 0 - 200 cells/uL [facility] NEUTROPHILS 58.9 % [facility] LYMPHOCYTES 32.2 % [facility] MONOCYTES 6.1 % [facility] EOSINOPHILS 1.4 % [facility] BASOPHILS 1.4 % [facility] Blood BLOOD SPECIMEN / Unknown 04/15/2024 1:05 PM ASSET PROTECTION MANAGER 04/15/2024 1:05 PM ASSET PROTECTION MANAGER Carrie Pena MD HEMATOLOGY Final Result WO Funding [facility] [address] [place] [address], [place] [phone] [facility] [address] [place] [address] * (ABNORMAL) FERRITIN (04/15/2024 1:05 PM ASSET PROTECTION MANAGER) Only the most recent of2 resultswithin the time period is included. FERRITIN 10(L) 38 - 380 ng/mL [facility] Blood BLOOD SPECIMEN / Unknown 04/15/2024 1:05 PM ASSET PROTECTION MANAGER 04/15/2024 1:05 PM ASSET PROTECTION MANAGER Carrie Pena MD CHEMISTRY Final Result [facility] [address] [place] [address], [place] [phone] [facility] [address] [facility] [place] [address] * RETICULOCYTES (03/07/2024 1:28 PM ASSET PROTECTION MANAGER) Pathologist [facility] RETICULOCYTE COUNT, AUTOMATED 2.0 % [facility] RETICULOCYTE, ABSOLUTE 78,200 25,000 - 90,000 cells/uL [facility] Blood BLOOD SPECIMEN / Unknown 03/07/2024 1:28 PM ASSET PROTECTION MANAGER 03/07/2024 1:29 PM ASSET PROTECTION MANAGER Narrative [facility] - 03/08/2024 5:01 AM ASSET PROTECTION MANAGER FASTING:NO FASTING: NO Prosper Alvarado MD HEMATOLOGY Final Resu lt Performing Organization Address [facility]/State/ZIP Co de Phone Number [facility] [address] [place] [address], [employer] [facility] [address] [place] [address] * (ABNORMAL) HAPTOGLOBIN (03/07/2024 1:28 PM ASSET PROTECTION MANAGER) Pathologist [facility] HAPTOGLOBIN 282(H) 43 - 212 mg/dL [facility] Blood BLOOD SPECIMEN / Unknown 03/07/2024 1:28 PM ASSET PROTECTION MANAGER 03/07/2024 1:29 PM ASSET PROTECTION MANAGER Narrative [facility] - 03/10/2024 12:35 PM ASSET PROTECTION MANAGER FASTING:NO FASTING: NO Prosper Alvarado MD CHEMISTRY Final Resu lt [facility] [address] [facility] [place] [address], [place] [phone] [facility] [address] [facility] [place] [address] * VITAMIN B12 (03/07/2024 1:28 PM ASSET PROTECTION MANAGER) Pathologist [facility] VITAMIN B12 428 200 - 1,100 pg/mL [facility] Blood BLOOD SPECIMEN / Unknown 03/07/2024 1:28 PM ASSET PROTECTION MANAGER 03/07/2024 1:29 PM ASSET PROTECTION MANAGER Narrative [facility] - 03/08/2024 5:57 AM ASSET PROTECTION MANAGER FASTING:NO FASTING: NO us Prosper Alvarado MD CHEMISTRY Final Resu lt [facility] [address] [facility] [place] [place] [address], [facility] [address] [facility] [place] [address] * SCAN-LABORATORY REPORT (02/23/2024 12:00 AM ASSET PROTECTION MANAGER) us Scanner OTHER Final Result * SCAN-CT INTERPRETATION (02/21/2024 12:00 AM ASSET PROTECTION MANAGER) Anatomical Region Laterality Modality Other us Scanner OTHER Final Result * SCAN-ELECTROCARDIOGRAM EKG (02/21/2024 12:00 AM ASSET PROTECTION MANAGER) us Scanner OTHER Final Result * (ABNORMAL) LIPID PANEL W REFLEX MEASURED LDL (09/21/2020 12:35 PM CDT) CHOLESTEROL,TOTAL 212(H) 100 - 199 mg/dL 09/22/2020 1:02 AM CDT [facility] TRIGLYCERIDES 92 <150 mg/dL 09/22/2020 1:02 AM CDT [facility] HDL CHOLESTEROL 55 >40 mg/dL 1:02 AM CDT [facility] NON-HDL CHOLESTEROL 157(H) <145 mg/dl 09/22/2020 1:02 AM CDT [facility] CHOL/HDL RATIO 3.85 <4.50 09/22/2020 1:02 AM CDT [facility] LDL CHOLESTEROL 139(H) <=130 mg/dL 09/22/2020 1:02 AM CDT [facility] VLDL CHOLESTEROL 18 mg/dL 09/23/19 21 1:02 AM CDT [facility] PROVIDER ORDERED STATUS RANDOM 09/22/2020 1:02 AM CDT [facility] Blood BLOOD SPECIMEN / Unknown Butterfly / Unknown 09/21/2020 12:35 PM CDT 09/21/2020 12:38 PM CDT us Olga Trimble BUILDING PRESSURE WASHER CHEMISTRY Final Re sult [facility] [address] [place] [address], from Last 3 Months or Most Recently Relevant to Health Maintenance Insurance MEDICAID MEDICARE PB ONLY MEDICARE PART A HB ONLY MEDICARE PART B HB ONLY Care Teams Saddle Stitch Operator Relationship Specialty Start Date End Date Carrie Pena MD [address] [place] [address] PCP - General Family Practice 11/14/12
[2024-05-19 16:33] VITALS: BP 126/77; PULSE 68; RESP 18; TEMP 36.8; O2SAT 94
--- NOTE | 2024-05-19 16:46 | CRLHL7_ITS ---
For Patients: As a result of the Cures Act, medical imaging exams and procedure reports are released immediately into your electronic medical record. You may view this report before your referring provider. If you have questions, please contact your health care provider. INDICATION: Cough TECHNIQUE: Chest radiograph 1 view COMPARISON: 12/31/2023 FINDINGS: The sensitivity and specificity of the exam are severely limited by the patient`s body habitus. Mediastinum: The mediastinum is normal in appearance. The cardiac silhouette is mildly enlarged but may be accentuated by the portable technique. Lung: Moderate perihilar ground-glass opacities are present with vascular crowding and indistinctness of the pulmonary vessels. No sign of pleural effusion seen. No pneumothorax is identified. Bone and Soft tissue: Unremarkable for age. IMPRESSIONS: 1. Moderate perihilar ground-glass opacities are present with vascular crowding and indistinctness of the pulmonary vessels. Findings may be due to pulmonary edema. 2. The cardiac silhouette is mildly enlarged but may be accentuated by the portable technique. Dictated by Bennie Arias MD @ 05/19/2024 5:48:03 PM Dictated by: Bennie Arias MD @ 05/19/2024 17:48:07 (Electronically Signed)
[2024-05-19 17:24] LABS: PCR FLU A Negative PCR FLU A (Negative); PCR FLU B Negative PCR FLU B (Negative); PCR RSV Negative PCR RSV (Negative); SARS PCR* Negative SARS-CoV-2 (Negative)
--- NOTE | 2024-05-19 17:54 | ED_ITS ---
HPI - General Adult General Time Seen by Provider: 17:59 Date Seen: 05/19/24 Chief complaint: Cough Stated complaint: Low O2 Time Seen by Provider: 05/19/24 16:29 Source: patient, RN notes reviewed and other (Care provider with him) Mode of arrival: ambulatory Limitations: no limitations History of Present Illness HPI narrative: This 43-year-old male is referred from urgent care with some hypoxia there, pulse oximetry was anywhere from 84-96%. Seemed that with activity is oxygenation did go down. He was presenting for cough and congestion of about a week. 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 He has been tired. His appetite has been good. They have not noted any fevers. He has reportedly had an exposure to COVID with his dad. He is referred here for further imaging and evaluation given the hypoxia in Urgent Care seen. He does have a significant history of pneumonia. Portable chest x-ray and triple viral swab were ordered on arrival. Related Data Home Medications ?Medication ?Instructions ?Recorded ?Confirmed lorazepam 1 mg tablet 0.25 mg PO TID PRN anxiety 04/17/23 05/19/24 fluvoxamine 100 mg tablet 100 mg PO BID 06/30/23 05/19/24 albuterol sulfate 2.5 mg/3 mL 2.5 mg inhalation Q4H PRN cough 12/13/23 05/19/24 (0.083 %) solution for nebulization montelukast 10 mg tablet 10 mg PO HS 12/13/23 05/19/24 acetaminophen 650 mg 1,300 mg PO BID 12/31/23 05/19/24 tablet,extended release (8 Hour Pain Reliever) budesonide 0.5 mg/2 mL suspension 0.5 mg inhalation BID 12/31/23 05/19/24 for nebulization cholecalciferol (vitamin D3) 50 50 mcg PO DAILY 12/31/23 05/19/24 mcg (2,000 unit) capsule Lactobacillus acidophilus 10 10,000 mmu cells PO DAILY 02/21/24 05/19/24 billion cell capsule (Probiotic) gabapentin 300 mg capsule 900 mg PO HS 02/21/24 05/19/24 quetiapine 300 mg tablet 300 mg PO HS 02/21/24 05/19/24 Previous Rx's ?Medication ?Instructions ?Recorded omeprazole 20 mg capsule,delayed 20 mg PO BID #60 caps 07/02/23 release acetaminophen 500 mg tablet 1,000 mg (2 x 500 mg) PO DAILY@15 02/23/24 #60 tabs cefpodoxime 200 mg tablet 200 mg PO BID 8 days #16 tabs 02/23/24 Allergies Allergy/AdvReac Type Severity Reaction Status Date / Time gluten Allergy Verified 05/19/24 18:20 Review of Systems Status of ROS: Reports: 6 or more systems reviewed and unremarkable except as noted in History and below [facility] Medical History Trisomy 21 ?Q90.9 - Down syndrome, unspecified (ICD-10) Recurrent aspiration pneumonia ?J69.0 - Pneumonitis due to inhalation of food and vomit (ICD-10) Frontotemporal dementia ?G31.09 - Other frontotemporal neurocognitive disorder (ICD-10) ?F02.80 - Dementia in other diseases classified elsewhere, unspecified severity, without behavioral disturbance, psychotic disturbance, mood disturbance, and anxiety (ICD-10) Duodenal ulcer ?K26.9 - Duodenal ulcer, unspecified as acute or chronic, without hemorrhage or perforation (ICD-10) Obstructive sleep apnea ?G47.33 - Obstructive sleep apnea (adult) (pediatric) (ICD-10) Chronic back pain ?M54.9 - Dorsalgia, unspecified (ICD-10) ?G89.29 - Other chronic pain (ICD-10) Pneumonia ?J18.9 - Pneumonia, unspecified organism (ICD-10) Major depressive disorder ?F32.9 - Major depressive disorder, single episode, unspecified (ICD-10) Obsessive compulsive disorder ?F42.9 - Obsessive-compulsive disorder, unspecified (ICD-10) Celiac disease ?K90.0 - Celiac disease (ICD-10) Surgical History H/O esophagogastroduodenoscopy ?Z98.890 - Other specified postprocedural states (ICD-10) H/O umbilical hernia repair ?Z98.890 - Other specified postprocedural states (ICD-10) ?Z87.19 - Personal history of other diseases of the digestive system (ICD-10) History of tympanoplasty ?Z98.890 - Other specified postprocedural states (ICD-10) Family History Maternal Grandfather Leukemia Maternal Grandmother Colon cancer Social History Narrative: He lives with his parents and there is a personal driver, 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 He does not smoke or drink alcohol. What is your current living situation?: I presently have a place to live Problems where you live: no known problems Problems where you live details: N/A In the past 12 months, utilities in danger of being shut off: no In past 12 months, lack of transportation kept you from medical appts, meetings, work, or getting things needed for daily living: no In the past 12 mos, have been you worried that your food would run out before you had money to buy more?: never true In the past 12 mos, the food you bought just didn't last and you didn't have money to buy more?: never true Highest level of school completed/degree received: high school graduate Smoking Status: Never smoker How often do you have a drink containing alcohol: never How often do you have six or more drinks on one occasion: Never AUDIT-C Alcohol total score: 0 Non-prescribed substance use: denies use Caffeine: No How often does anyone, including family, friends and others, physically hurt you : never How often does anyone, including family, friends and others, insult or talk down to you: never How often does anyone, including family, friends and others, threaten you with harm: never How often does anyone, including family, friends and others, scream or curse at you: never service: No Exam Const: Vital Signs, click to edit/add: Vital Signs - 24 hr 05/19/24 16:33 05/19/24 18:00 05/19/24 18:00 Temperature 98.2 F Pulse Rate [Pulse Oximeter] 68 65 Respiratory Rate 18 16 Blood Pressure [Le ft Upper Arm] 126/77 Pulse Oximetry 94 92 92 Oxygen Delivery Me thod Room Air Room Air Stay M does have a harsh cough but otherwise is alert, interactive, speech is normal when he does talk to me. Down syndrome face ease but sclera clear, conjugate gaze. Neck thick but supple, no adenopathy. He has rhonchi when listening to his lungs but has no accessory muscle use, no intercostal retractions. Do not hear any underlying wheezing or crackles. CV regular rate and rhythm, no murmur noted, normal S1-S2. Abdomen is obese but soft, no rebound or guarding, no organomegaly, no masses. He has no lower extremity edema. Documenting provider has reviewed patient's vital signs: yes Course Course ED Course: Have reviewed that his triple viral swab has come back negative. Chest x-ray looks like it could have some edema on it. We will proceed with full complement of blood work including cardiac labs with troponin and proBNP. Will have him get an EKG. Will monitor on pulse oximetry. Will proceed with chest CT imaging to fully evaluate further. Will do chest CT PE protocol given the hypoxia, history of recurrent pneumonia and possible acute findings of pulmonary edema today. Need to investigate this further. Reevaluation(s) Time of Reevaluation #1: 19:32 Reevaluation #1: Reviewed CT imaging, normal white count. The pneumonia that he had prior has still some areas on chest imaging or recurrent areas. Less prominent than in Se ptember. He is bronchial [place] are thickened consistent with bronchitis. White blood count is currently normal, no evidence of any cardiac complications. Procalcitonin is actually currently normal at this time. Given his history, will cover with Augmentin and a course of prednisone. We have noticed no hypoxia on monitoring here. I do feel he is stable to discharge to home as he does have monitoring there. Vital Signs Vital signs: Initial Vital Signs Temperature 98.2 F 05/19/24 16:33 Temperature Source Temporal Artery Scan 05/19/24 16:33 Pulse Rate 68 05/19/24 16:33 Respiratory Rate 18 05/19/24 16:33 Blood Pressure 126/77 05/19/24 16:33 Blood Pressure Mean 93 05/19/24 16:33 Blood Pressure Position Supine 05/19/24 16:33 Pulse Oximetry 94 05/19/24 16:33 Oxygen Delivery Method Room Air 05/19/24 16:33 Vital Signs Temperature 98.2 F 05/19/24 16:33 Pulse Rate 68 05/19/24 16:33 Respiratory Rate 18 05/19/24 16:33 Blood Pressure 126/77 05/19/24 16:33 Pulse Oximetry 94 05/19/24 16:33 Oxygen Delivery Method Room Air 05/19/24 16:33 Temperature 98.2 F 05/19/24 16:33 Pulse Rate 65 05/19/24 18:00 Respiratory Rate 16 05/19/24 18:00 Blood Pressure 126/77 05/19/24 16:33 Pulse Oximetry 92 05/19/24 18:00 Oxygen Delivery Method Room Air 05/19/24 18:00 Medical Decision Making Lab Data Lab results reviewed: Yes I reviewed the patient's lab results Labs: Lab Results 05/19/24 05/19/24 Range/Units 16:40 18:10 WBC 7.01 (4.50-11.00) K/uL RBC 4.42 (4.30-5.90) m/uL Hgb 12.0 L (13.5-17.5) gm/dL Hct 40.5 (37.0-53.0) % MCV 92 (80-100) fL MCH 27 (26-34) pg MCHC 30 L (32-36) gm/dL RDW Coeff of [place] 24.4 H (11.5-15.5) % Plt Count 263 (140-440) K/uL Neut % (Auto) 68.9 (42.0-72.0) % Lymph % (Auto) 22.4 (20-44) % [place] % (Auto) 6.4 (0.0-11.0) % Eos % (Auto) 1.3 (0.0-7.0) % Baso % (Auto) 0.7 (0.0-3.0) % Neut # (Auto) 4.83 (1.7-7.0) K/uL Lymph # (Auto) 1.57 (0.90-2.90) K/uL [place] # (Auto) 0.40 (0.00-0.90) K/UL Eos # (Auto) 0.09 (0.00-0.50) K/uL Baso # (Auto) 0.05 (0.00-0.30) K/uL Abs Immat Gran (auto) 0.02 (0.00-0.30) K/uL Imm/Tot Granulo (auto) 0.3 % VBG pH 7.351 (7.32-7.43) VBG pCO2 61 H* (40-50) mmHG VBG pO2 44.8 (25-47) mmHG VBG HCO3 34 H (21-28) mmol/L Sodium 138 (135-149) mmol/L Potassium 4.2 (3.6-5.1) mmol/L Chloride 99 (96-114) mmol/L Carbon Dioxide 34 H (20-32) mmol/L Anion Gap 5 L (7-15) mEq/L BUN 17 (5-24) mg/dL Creatinine 0.7 (0.5-1.5) mg/dL Estimated GFR 117 ml/min Glucose 99 (60-115) mg/dL Lactate 0.9 (0.5-1.9) mmol/L Calcium 8.6 (8.4-10.6) mg/dL Magnesium 2.2 (1.5-2.6) mg/dL Total Bilirubin 0.2 (0.1-1.5) mg/dL AST 29 (12-35) U/L ALT 31 (4-50) U/L Alkaline Phosphatase 83 (40-150) U/L Total Protein 7.6 (6.0-8.3) g/dL Albumin 4.1 (3.3-5.0) g/dL SARS-CoV-2 (PCR) Negative SARS-CoV-2 (Negative) Influenza Type A (PCR) Negative PCR FLU A (Negative) Influenza Type B (PCR) Negative PCR FLU B (Negative) RSV (PCR) Negative PCR RSV (Negative) Imaging Data Chest x-ray: Attestation: I have reviewed the pertinent imaging results. Radiologist's impression: Patient: ENEDELIA KEENAN Facility:?[facility] Patient ID:?[id number] Site Patient ID:?[id number]. Site :?[id number] Study:?XRay-Chest 1 VIEW PORTABLE-05/19/2024 5:13:31 PM Ordering Physician:Desiree Chavez Final Report: INDICATION: Cough TECHNIQUE: Chest radiograph 1 view COMPARISON: 12/31/2023 FINDINGS: The sensitivity and specificity of the exam are severely limited by the patient`s body habitus. Mediastinum: The mediastinum is normal in appearance. The cardiac silhouette is mildly enlarged but may be accentuated by the portable technique. Lung: Moderate perihilar ground-glass opacities are present with vascular crowding and indistinctness of the pulmonary vessels. No sign of pleural effusion seen. No pneumothorax is identified. Bone and Soft tissue: Unremarkable for age. IMPRESSIONS: 1. Moderate perihilar ground-glass opacities are present with vascular crowding and indistinctness of the pulmonary vessels. Findings may be due to pulmonary edema. 2. The cardiac silhouette is mildly enlarged but may be accentuated by the portable technique. Dictated by Bennie Arias MD @ 05/19/2024 5:48:03 PM Dictated by: Bennie Arias MD @ 05/19/2024 17:48:07 (Electronic Signature) CT scan - chest: Attestation: I have reviewed the pertinent imaging results. Radiologist's impression: Patient: ENEDELIA KEENAN Facility:?[facility] Patient ID:?[id number] Site Patient ID:?[id number]. Site :?[id number] Study:?CT-Chest Angio PE 95CC ISOVUE 370-05/19/2024 6:26:47 PM Ordering Physician:?Lanre Chavez Final Report: INDICATION: Hypoxia, cough, fluid on chest x-ray. TECHNIQUE: CT chest PE was acquired with 100 cc Omnipaque 350 IV contrast. COMPARISON: Chest CT 02/21/2024. FINDINGS: Heart and vasculature: Contrast opacification of the pulmonary arterial tree is adequate. No sign of pulmonary embolism. Heart size is normal. Thoracic aorta and pulmonary artery are normal in caliber. Aberrant right subclavian artery. Small to moderate pericardial effusion, unchanged. Lungs and pleura: Few patchy ground-glass opacities within the right upper lobe and to a lesser degree throughout the lower lobes and left upper lobe. Mild bronchial wall thickening in the lower lobes. No pleural effusions, pleural thickening, or pneumothorax. Lymph nodes/mediastinum: No mediastinal, hilar, or axillary adenopathy. Chest wall: No masses. Upper abdomen: No acute or significant findings. Bones: Subacute right lateral 6th rib fracture. Otherwise, unremarkable for age. IMPRESSION: 1. No pulmonary embolism. 2. Few patchy ground-glass opacities within the right upper lobe and to a lesser degree throughout the lower lobes and left upper lobe, decreased compared to the prior exam, compatible with a multilobar infectious/inflammatory process. These may be new or residual from the patient`s previously seen airspace disease on the prior exam. 3. Mild bronchial wall thickening within the lower lobes, consistent with superimposed bronchitis. 4. Unchanged pericardial effusion. Please note that all CT scans at this facility use dose modulation, iterative reconstruction, and/or weight-based dosing when appropriate to reduce radiation dose to as low as reasonably achievable. Dictated by Juan R Lyons MD @ 05/19/2024 7:00:46 PM (Electronic Signature) ECG Data Attestation: I personally reviewed and interpreted this ECG as follows: (Normal sinus rhythm with sinus arrhythmia, 66 beats per minute. Artifact seen, no definitive ischemic change or infarct but there is significant artifact.) Discharge Plan Discharge Clinical Impression: Bronchitis Patient Disposition: Home w/ Parent or Adult Condition: Stable Instructions: Acute Bronchitis (ED) Additional Instructions: Start Augmentin and prednisone, take as prescribed. The prednisone will be 20 mg twice a day for 5 days, take with food. The Augmentin is 875 mg twice a day for 10 days. Start both tonight. Continue with CPAP at night. Watch for worsening with fevers, increasing cough, increasing difficulty breathing, development of low oxygen saturation at home; seek re-evaluation if there are concerns or any of these things develop. Activity Level: Activity as Tolerated Prescriptions: No Action albuterol sulfate 2.5 mg /3 mL (0.083 %) solution for nebulization 2.5 mg inhalation Q4H PRN (Reason: cough) Rx Instructions: PER NEBULIZER montelukast 10 mg tablet 10 mg PO HS fluvoxamine 100 mg tablet 100 mg PO BID omeprazole 20 mg Capsule,Delayed Release(Dr/Ec) 20 mg PO BID Qty: 60 2RF acetaminophen [8 Hour Pain Reliever] 650 mg tablet extended release 1,300 mg PO BID budesonide 0.5 mg/2 mL suspension for nebulization 0.5 mg inhalation BID cholecalciferol (vitamin D3) 50 mcg (2,000 unit) capsule 50 mcg PO DAILY lorazepam 1 mg tablet 0.25 mg PO TID PRN (Reason: anxiety) gabapentin 300 mg capsule 900 mg PO HS quetiapine 300 mg tablet 300 mg PO HS Probiotic 10 billion cell capsule 10,000 mmu cells PO DAILY acetaminophen 500 mg Tablet 1,000 mg PO DAILY@15 Qty: 60 0RF cefpodoxime 200 mg Tablet 200 mg PO BID 8 Days Qty: 16 0RF Rx Instructions: Start evening 02/23/24 Follow Up/Referrals: Carrie Pena MD [Primary Care Provider] - Stand Alone Forms: MyHealth Info Instructions
[2024-05-19 18:00] VITALS: PULSE 65; RESP 16; O2SAT 92
--- NOTE | 2024-05-19 18:03 | CRLHL7_ITS ---
For Patients: As a result of the Century Cures Act, medical imaging exams and procedure reports are released immediately into your electronic medical record. You may view this report before your referring provider. If you have questions, please contact your health care provider. INDICATION: Hypoxia, cough, fluid on chest x-ray. TECHNIQUE: CT chest PE was acquired with 100 cc Omnipaque 350 IV contrast. COMPARISON: Chest CT 02/21/2024. FINDINGS: Heart and vasculature: Contrast opacification of the pulmonary arterial tree is adequate. No sign of pulmonary embolism. Heart size is normal. Thoracic aorta and pulmonary artery are normal in caliber. Aberrant right subclavian artery. Small to moderate pericardial effusion, unchanged. Lungs and pleura: Few patchy ground-glass opacities within the right upper lobe and to a lesser degree throughout the lower lobes and left upper lobe. Mild bronchial wall thickening in the lower lobes. No pleural effusions, pleural thickening, or pneumothorax. Lymph nodes/mediastinum: No mediastinal, hilar, or axillary adenopathy. Chest wall: No masses. Upper abdomen: No acute or significant findings. Bones: Subacute right lateral 6th rib fracture. Otherwise, unremarkable for age. IMPRESSION: 1. No pulmonary embolism. 2. Few patchy ground-glass opacities within the right upper lobe and to a lesser degree throughout the lower lobes and left upper lobe, decreased compared to the prior exam, compatible with a multilobar infectious/inflammatory process. These may be new or residual from the patient`s previously seen airspace disease on the prior exam. 3. Mild bronchial wall thickening within the lower lobes, consistent with superimposed bronchitis. 4. Unchanged pericardial effusion. Please note that all CT scans at this facility use dose modulation, iterative reconstruction, and/or weight-based dosing when appropriate to reduce radiation dose to as low as reasonably achievable. Dictated by Juan R Lyons MD @ 05/19/2024 7:00:46 PM (Electronically Signed)
[2024-05-19 18:38] LABS: HCO3 VBG 34 mmol/L (21-28); Lactate* 0.9 mmol/L (0.5-1.9); PO2 VBG 44.8 mmHG (25-47); pH VBG 7.351 (7.32-7.43)
--- OUTSIDE RECORDS SUMMARY | 2024-05-19 18:44 | XMS_ITS | Clinical Summary ---
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 Name Role Phone Carrie Pena MD Primary [...] 90 Tablet 2 025 Active multivit with wik-UZ-zwzfekuh (ONE-A-DAY MEN'S MULTIVITAMIN) 400-300 mcg tab Take [...] Type Department Care Team Description 04/24/2024 Refill [facility] [address] [facility] [place] [address] Marge Nguyen MD Refill Request (Lorazepam) 04/23/2024 Telephone [facility] [address] [place] [address] Carrie Pena MD Abnormal Lab Results 04/23/2024 Orders Only [facility] [address] [place] [address] Carrie Pena MD <No scans attached> 04/15/2024 1:00 PM LIFE MANAGER Orders Only [facility] [address] [place] [address] Lab, [place] Lab 04/15/2024 Refill [facility] [address] [place] [address] Marge Nguyen MD Refill Request (Fluvoxamine) 04/15/2024 Travel 04/02/2024 Refill [facility] [address] [place] [address] Carrie Pena MD Refill Request (Montelukast) 03/18/2024 9:15 AM LIFE MANAGER Telemedicine [facility] [address] [place] [address] Marge Nguyen MD Telehealth; Medication Management (Things are going better) 03/15/2024 Refill [facility] [address] [place] [address] Marge Nguyen MD Refill Request (Gabapentin) 03/09/2024 Telephone [facility] [address] [place] [address] Carrie Pena MD Abnormal Lab Results 03/07/2024 Travel 02/26/2024 10:15 AM LIFE MANAGER Telemedicine [facility] [address] [place] [address] Marge Nguyen MD Telehealth 02/26/2024 Travel 02/25/2024 2:15 PM LIFE MANAGER Office Visit [facility] [address] [place] [address] Prosper Alvarado MD Hospital F/U 02/25/2024 Telephone [facility] [address] [place] [address] Pulmonary, Ulsc Screening 02/25/2024 Travel 02/25/2024 Refill [facility] [address] [place] [address] Marge Nguyen MD Refill Request (Fluvoxamine) 02/23/2024 Orders Only [facility] Scanner 1 scan: (1-Ord) [facility], MULTIPLE LABS, 02/23/2024 02/21/2024 Orders Only [facility] Scanner 1 scan: (1-Ord) BORDERLINE ECG, 02/21/2024 02/21/2024 Orders Only [facility] Scanner 1 scan: (1-Ord) [facility], CT ANGIO CHEST PE PROTOCOL, 02/21/2024 from [...] on file Legal Sex Male 5:26 AM LIFE MANAGER Gender Identity Not on file Sexual Orientation Not on file 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 Not on file Not on file Obstetrics History Last Filed Vital Signs Vital Sign Reading Time Taken Comments Blood Pressure 111/78 02/25/2024 2:12 PM LIFE MANAGER Pulse 95 02/25/2024 2:12 PM LIFE MANAGER Temperature 36.4 C (97.6 F) 02/25/2024 2:12 PM LIFE MANAGER Respiratory Rate 18 05/03/2021 10:37 AM LIFE MANAGER Oxygen Saturation 88% 02/25/2024 2:12 PM LIFE MANAGER Inhaled Oxygen Concentration - - Weight 86.4 kg (190 lb 8 oz) 02/25/2024 2:12 PM LIFE MANAGER Height 156.8 cm (5' 1.75) 02/12/2024 3:23 PM CD T Body Mass Index 35.13 02/12/2024 3:23 PM CDT Plan of Treatment Upcoming Encounters Date Type Department Care Team (Late st Contact Info) Description 06/05/2024 1:15 PM LIFE MANAGER Office Visit [facility] [address] [place] [address] Cliff Snyder, DO [address] [place] [address] 07/16/2024 1:00 PM CDT Office Visit [facility] [address] [facility] [place] [address] Raymundo Espinoza MD [address] [facility] [place] [address] 09/16/2024 10:15 AM CDT Telemedicine [facility] [address] [facility] [place] [address] Marge Nguyen MD [address] [place] [address] Health Maintenance Due Date Last Done Comments [...] WITH AUTO DIFFERENTIAL Routine 04/15/2024 1:05 PM LIFE MANAGER Iron deficiency anemia due to chronic blood loss FERRITIN Routine 04/15/2024 1:05 PM LIFE MANAGER Iron deficiency anemia due to chronic blood loss VITAMIN B12 Routine 03/07/2024 1:28 PM LIFE MANAGER Recurrent aspiration pneumonia (HC) FERRITIN Routine 03/07/2024 1:28 PM LIFE MANAGER Recurrent aspiration pneumonia (HC) Other abnormality of red blood cells RETICULOCYTES Routine 03/07/2024 1:28 PM LIFE MANAGER Recurrent aspiration pneumonia (HC) HAPTOGLOBIN Routine 03/07/2024 1:28 PM LIFE MANAGER Recurrent aspiration pneumonia (HC) CBC WITH AUTO DIFFERENTIAL Routine 03/07/2024 1:28 PM LIFE MANAGER Recurrent aspiration pneumonia (HC) SCAN-LABORATORY REPORT 4 12:00 AM LIFE MANAGER SCAN-ELECTROCARDIOGRAM EKG 02/21/2024 12:00 AM LIFE MANAGER SCAN-CT INTERPRETATION 12:00 AM LIFE MANAGER LIPID PANEL W REFLEX MEASURED LDL Routine 09/21/2020 12:35 PM CDT 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 Pathologist [facility] WHITE BLOOD CELL COUNT 4.3 3.8 - [...] BLOOD SPECIMEN / Unknown 04/15/2024 1:05 PM LIFE MANAGER 04/15/2024 1:05 PM LIFE MANAGER Carrie Pena MD HEMATOLOGY Final Result [facility] [address] [place] [address], [place] [phone] [facility] [address] [place] [address] * (ABNORMAL) FERRITIN (04/15/2024 1:05 PM LIFE MANAGER) Only the most recent of2 resultswithin the time period is included. FERRITIN 10(L) 38 - 380 ng/mL [facility] Blood BLOOD SPECIMEN / Unknown 04/15/2024 1:05 PM LIFE MANAGER 04/15/2024 1:05 PM LIFE MANAGER Carrie Pena MD CHEMISTRY Final Result [facility] [address] [place] [address], [place] [phone] [facility] [address] [facility] [place] [address] * RETICULOCYTES (03/07/2024 1:28 PM LIFE MANAGER) Pathologist [facility] RETICULOCYTE COUNT, AUTOMATED 2.0 % [facility] RETICULOCYTE, ABSOLUTE 78,200 25,000 - 90,000 cells/uL [facility] Blood BLOOD SPECIMEN / Unknown 03/07/2024 1:28 PM LIFE MANAGER 03/07/2024 1:29 PM LIFE MANAGER Narrative [facility] - 03/08/2024 5:01 AM LIFE MANAGER FASTING:NO FASTING: NO Prosper Alvarado MD HEMATOLOGY Final Resu lt Performing Organization Address [facility]/State/ZIP Co de Phone Number [facility] [address] [place] [address], [facility] [address] [place] [address] * (ABNORMAL) HAPTOGLOBIN (03/07/2024 1:28 PM LIFE MANAGER) Pathologist [facility] HAPTOGLOBIN 282(H) 43 - 212 mg/dL [facility] Blood BLOOD SPECIMEN / Unknown 03/07/2024 1:28 PM LIFE MANAGER 03/07/2024 1:29 PM LIFE MANAGER Narrative [facility] - 03/10/2024 12:35 PM LIFE MANAGER FASTING:NO FASTING: NO Prosper Alvarado MD CHEMISTRY Final Resu lt [facility] [address] [facility] [place] [address], [place] [phone] [facility] [address] [facility] [place] [address] * VITAMIN B12 (03/07/2024 1:28 PM LIFE MANAGER) Pathologist [facility] VITAMIN B12 428 200 - 1,100 pg/mL [facility] Blood BLOOD SPECIMEN / Unknown 03/07/2024 1:28 PM LIFE MANAGER 03/07/2024 1:29 PM LIFE MANAGER Narrative [facility] - 03/08/2024 5:57 AM LIFE MANAGER FASTING:NO FASTING: NO us Prosper Alvarado MD CHEMISTRY Final Resu lt [facility] [address] [facility] [place] [place] [address], [facility] [address] [facility] [place] [address] * SCAN-LABORATORY REPORT (02/23/2024 12:00 AM LIFE MANAGER) us Scanner OTHER Final Result * SCAN-CT INTERPRETATION (02/21/2024 12:00 AM LIFE MANAGER) Anatomical Region Laterality Modality Other us Scanner OTHER Final Result * SCAN-ELECTROCARDIOGRAM EKG (02/21/2024 12:00 AM LIFE MANAGER) us Scanner OTHER Final Result * (ABNORMAL) LIPID PANEL W REFLEX MEASURED LDL (09/21/2020 12:35 PM CDT) CHOLESTEROL,TOTAL 212(H) 100 - 199 mg/dL 09/22/2020 1:02 AM CDT [facility] TRIGLYCERIDES 92 <150 mg/dL 09/22/2020 1:02 AM CDT [facility] HDL CHOLESTEROL 55 >40 mg/dL 1:02 AM CDT [facility] NON-HDL CHOLESTEROL 157(H) <145 mg/dl 09/22/2020 1:02 AM CDT [facility] CHOL/HDL RATIO 3.85 <4.50 09/22/2020 1:02 AM CDT [facility] LDL CHOLESTEROL 139(H) <=130 mg/dL 09/22/2020 1:02 AM CDT [facility] VLDL CHOLESTEROL 18 mg/dL 09/23/19 21 1:02 AM CDT [facility] PROVIDER ORDERED STATUS RANDOM 09/22/2020 1:02 AM CDT [facility] Blood BLOOD SPECIMEN / Unknown Butterfly / Unknown 09/21/2020 12:35 PM CDT 09/21/2020 12:38 PM CDT us Olga Trimble AIR COMPRESSOR MECHANIC CHEMISTRY Final Re sult [facility] [address] [place] [address], from Last 3 Months or Most Recently Relevant to Health Maintenance Insurance MEDICAID MEDICARE PB ONLY MEDICARE PART A HB ONLY MEDICARE PART B HB ONLY Care Teams Auto Dealer Relationship Specialty Start Date End Date Carrie Pena MD [address] [place] [address] PCP - General Family Practice 11/14/12
[2024-05-19 18:46] LABS: Basophils Absolute Auto 0.05 K/uL (0.00-0.30); Basophils Percent Auto 0.7 % (0.0-3.0); Eosinophils Absolute Auto 0.09 K/uL (0.00-0.50); Eosinophils Percent Auto 1.3 % (0.0-7.0); Hematocrit 40.5 % (37.0-53.0); Immature Granulocytes Abs Auto 0.02 K/uL (0.00-0.30); Immature Granulocytes Pct Auto 0.3 %; Lymphocytes Absolute Auto 1.57 K/uL (0.90-2.90); Lymphocytes Percent Auto 22.4 % (20-44); Mean Corpuscular HGB Conc 30 gm/dL (32-36); Mean Corpuscular Hemoglobin 27 pg (26-34); Mean Corpuscular Volume 92 fL (80-100); Monocytes Percent Auto 6.4 % (0.0-11.0); Neutrophils Absolute Auto 4.83 K/uL (1.7-7.0); Neutrophils Percent Auto 68.9 % (42.0-72.0); Platelet Count* 263 K/uL (140-440); RDW Coefficient of Variation % 24.4 % (11.5-15.5); Red Blood Count 4.42 m/uL (4.30-5.90); White Blood Count* 7.01 K/uL (4.50-11.00)
[2024-05-19 18:58] LABS: PCO2 VBG 61 mmHG (40-50)
[2024-05-19 18:59] LABS: Slide Review Reflex No
[2024-05-19 19:06] LABS: Albumin* 4.1 g/dL (3.3-5.0); Chloride* 99 mmol/L (96-114); Potassium* 4.2 mmol/L (3.6-5.1); Sodium* 138 mmol/L (135-149)
[2024-05-19 19:08] LABS: Bilirubin Total* 0.2 mg/dL (0.1-1.5); Creatinine* 0.7 mg/dL (0.5-1.5); Estimated Glomerular Filt Rate 117 ml/min
[2024-05-19 19:09] LABS: Alanine Aminotransferase* 31 U/L (4-50); Alkaline Phosphatase* 83 U/L (40-150); Anion Gap 5 mEq/L (7-15); Aspartate Amino Transferase* 29 U/L (12-35); Blood Urea Nitrogen* 17 mg/dL (5-24); Calcium* 8.6 mg/dL (8.4-10.6); Carbon Dioxide* 34 mmol/L (20-32); Glucose* 99 mg/dL (60-115); Total Protein* 7.6 g/dL (6.0-8.3)
[2024-05-19 19:10] LABS: Magnesium* 2.2 mg/dL (1.5-2.6)
[2024-05-19 19:12] LABS: C Reactive Protein* 7.2 mg/dL (0.5-1.0)
[2024-05-19 19:26] LABS: Procalcitonin* 0.22 ng/mL (<0.50)
[2024-05-19 19:33] LABS: NT Pro B Type NatriureticPept* 207 pg/mL; Troponin I* < 0.01 ng/mL (0.01-0.04)
[2024-05-19 19:40] VITALS: PULSE 70; RESP 18; O2SAT 95
== END 2024-05-19 19:52 | disposition home or self-care (01) ==
PROVIDERS: Emergency Provider Family Medicine; PCP Family Medicine
DX: J20.9 Acute bronchitis, unspecified (principal)
CPT/HCPCS: 36415; 71045; 71275; 80053; 82803; 83605; 83735; 83880; 84145; 84484; 85025; 86140; 87631; 93005; 94761; 99284; 99285; Q9967